=== PATIENT | male | born 1930 ===

== ENCOUNTER 2016-11-15 23:15 | Inpatient (IN) | payer MEDICARE ==
--- NOTE | 2016-11-15 23:25 | ED PDOC ---
HPI:STROKE - Time Time: 23:25 - Historian Historian: Patient - Chief Complaint Chief Complaint: Slurred speech, Confusion, Arm weakness, Leg weakness - Location Locate left: Lower extremity - Notes: Notes:: Last known well at ~9:30pm when he went to bed Woke up and attempted to talk to but had slurred and nonsensical speech. Also with difficulty with LEFT side movement H/o similar presentation in past from stroke: 10-y ago and 1-y ago. Taking Plavix. Took 3 baby aspirin given by prior to arrival. Currently reports she thinks he is getting a little better. Pt poor historian. Reports that he is fine. NIHSS Stroke Scale - Date/Time Evaluation Performed Date Performed: 11/15/16 Time Performed: 23:25 When Was NIHSS Performed: Baseline - How Severe is the Stroke Level of Consciousness: 0=Alert LOC to Questions: 0=Both comments correct LOC to commands: 0=Obeys both correctly Best Gaze: 1=Partial gaze palsy Visual: 1=Partial hemianopia Facial: 1=Minor asymmetry Motor Arm - Left: 1=Drift noted before 10 sec Motor Arm - Right: 0=No drift Motor Leg - Left: 2=Falls before 5 sec Motor Leg - Right: 0=No drift Limb Ataxia: 0=Absent Sensory: 1=Mild to moderate loss Best Language: 0=No aphasia Dysarthia: 0=Normal articulation Extinction & Inattention (Neglect): 1=Partial neglect (mild leonarda-attention) Score: 8 rTPA Inclusion/Exclusion - Refusal of Treatment Patient Refused Treatment: No - Inclusion Criteria for Altepase Patient is 18 years or Older: Yes The Clinical Diagnosis of Ischemic Stroke That is Causing a Potentially Disabling Neurological Deficit: Yes Time of Onset is Well Established to be Less Than 270 Minute Before Treatment Would Begin: Yes Risk/Benefit Discussed With Patient/Family Member Present: Yes - Exclusion Criteria for Altepase Uncontrolled Hypertension at Time of Treatment (Systolic BP above 185 or Diastolic BP above 110 mmHg): No Evidence of an Intracranial Hemorrhage: No Suspicion of Subarachnoid Hemorrhage on Pretreatment Evaluation Even if CT Head Negative For Hemorrhage: No - Warning to TPA With Conditions Condition: Age Greater Than 75 years, Increase Risk of Bleed Due to Comorbid Condition Additional Condition (For 3-4.5 Hour Window): Age Greater Than 80, Prior Stroke and Diabetes Past Medical History Reviewed: Historical Data, Nursing Documentation, Vital Signs Vital Signs: Last Vital Signs Temp Pulse 88 11/15/16 23:20 Resp 18 11/15/16 23:20 BP Pulse Ox - Medical History PMH: Diabetes, HTN - Family History Family History: States: No Known Family Hx - Social History Current smoker - smoking cessation education provided: No - Home Medications Home Medications: Ambulatory Orders Medication Instructions Recorded Bisoprolol [Zebeta] 5 mg PO DAILY 11/16/16 Glimepiride 1 mg PO DAILY 11/16/16 Nateglinide 120 mg PO BID 11/16/16 Omeprazole 20 mg PO DAILY 11/16/16 Quinapril HCl [Quinapril HCl] 10 mg PO DAILY 11/16/16 Apixaban [Eliquis] 5 mg PO BID tab 11/17/16 - Allergies Allergies/Adverse Reactions: Allergies Allergy/AdvReac Type Severity Reaction Status Date / Time No Known Allergies Allergy Verified 11/15/16 23:20 Review of Systems Review Of Systems: ROS cannot be obtained secondary to pt's inabilty to answer questions. (pt poor historian) Physical Exam - Reviewed Nursing Documentation Reviewed: Yes Vital Signs Reviewed: Yes - Physical Exam Appears: Positive for: Non-toxic, In Acute Distress Head Exam: Positive for: ATRAUMATIC, NORMOCEPHALIC Skin: Positive for: Warm, Dry Eye Exam: Positive for: EOMI, PERRL, Other (RIGHT gaze perference) ENT: Negative for: Pharyngeal Erythema, Tonsillar Exudate Neck: Positive for: Painless ROM, Supple Cardiovascular/Chest: Positive for: Regular Rate, Rhythm. Negative for: Murmur Respiratory: Positive for: Normal Breath Sounds. Negative for: Wheezing Gastrointestinal/Abdominal: Positive for: Soft. Negative for: Tenderness Back: Positive for: Normal Inspection. Negative for: Vertebral Tenderness Extremity: Negative for: Pedal Edema, Deformity Lymphatic: Negative for: Adenopathy Neurologic/Psych: Positive for: Alert, Oriented (x3), Motor/Sensory Deficits ( see NIHSS) - Laboratory Results Result Diagrams: 11/18/16 04:30 11/18/16 04:30 - Progress ED Course And Treament: EXAM: CT Head Without Intravenous Contrast. CLINICAL HISTORY: 86 years old, male; Signs and symptoms; Alteration of consciousness; Additional info: Code stroke TECHNIQUE: Axial computed tomography images of the head/brain without intravenous contrast. This CT exam was performed using one or more of the following dose reduction techniques: automated exposure control, adjustment of the mA and/or kV according to patient size, and/or use of iterative reconstruction technique. Sagittal reformatted images were created and reviewed. COMPARISON: No relevant prior studies available. FINDINGS: Brain: Mild encephalomalacia at the right parieto-occipital region compatible with old focal infarct. There is moderate prominence of ventricles and sulci, compatible with moderate atrophy. There is mild diminished density of the white matter bilaterally, consistent with mild microangiopathy. There is no evidence of intracranial hemorrhage. No evidence of acute territorial infarction. Ventricles: See above. Bones/joints: Unremarkable. No acute fracture. Soft tissues: Unremarkable. Sinuses: Unremarkable as visualized. No acute sinusitis. Mastoid air cells: Unremarkable as visualized. No mastoid effusion. IMPRESSION: 1. Mild encephalomalacia at the right parieto-occipital region compatible with old focal infarct. 2. No evidence for acute intracranial abnormality or displaced calvarial fracture. 3. Additional incidental and/or chronic findings as described. Thank you for allowing us to participate in the care of your patient. Dictated and Authenticated by: Hugo Downey MD 11/15/2016 11:33 PM Eastern Time ([place] & [place]) [facility]. Poor candidate for TPA at this time due to age, symptoms seem to be waning, and encephalomalacia on CT making intracranial bleeding higher risk. IV Mg and maintenance fluids ordered as discussed. EEG recommended for inpatient. Continue Plavix. On reeval pt has persistent LEFT sided weakness and some neglect. Condition: Improving,but remains with symptoms - Core Measure Core Measure Indicators: Code Stroke - Critical Care Total Time (In Min): 45 Documented Critical Care: Time excludes all time spent performint seperately billable procedures Disposition - Clinical Impression Clinical Impression: CVA (cerebral vascular accident) Discussed With Dr.: Yan Puente Doctor Will See Patient In The: Hospital Counseled Patient/Family Regarding: Studies Performed, Diagnosis - Disposition Disposition Time: 23:45 Condition: FAIR - Pt Status Changed To: Hospital Disposition Of: Inpatient - Admit Certification Admit to Inpatient:: After my assessment, the patient will require hospitalization for at least two midnights. This is because of the severity of symptoms shown, intensity of services needed, and/or the medical risk in this patient being treated as an outpatient. - POA Present On Arrival: None
--- NOTE | 2016-11-15 23:33 | CT ---
EXAM: CT Head Without Intravenous Contrast. CLINICAL HISTORY: 86 years old, male; Signs and symptoms; Alteration of consciousness; Additional info: Code stroke TECHNIQUE: Axial computed tomography images of the head/brain without intravenous contrast. This CT exam was performed using one or more of the following dose reduction techniques: automated exposure control, adjustment of the mA and/or kV according to patient size, and/or use of iterative reconstruction technique. Sagittal reformatted images were created and reviewed. COMPARISON: No relevant prior studies available. FINDINGS: Brain: Mild encephalomalacia at the right parieto-occipital region compatible with old focal infarct. There is moderate prominence of ventricles and sulci, compatible with moderate atrophy. There is mild diminished density of the white matter bilaterally, consistent with mild microangiopathy. There is no evidence of intracranial hemorrhage. No evidence of acute territorial infarction. Ventricles: See above. Bones/joints: Unremarkable. No acute fracture. Soft tissues: Unremarkable. Sinuses: Unremarkable as visualized. No acute sinusitis. Mastoid air cells: Unremarkable as visualized. No mastoid effusion. IMPRESSION: 1. Mild encephalomalacia at the right parieto-occipital region compatible with old focal infarct. 2. No evidence for acute intracranial abnormality or displaced calvarial fracture. 3. Additional incidental and/or chronic findings as described.
[2016-11-15] MEDS ORDERED: Sodium Chloride 0.9% 1,000 ML IV STA (23:45)
[2016-11-16 00:03] LABS: BASO # 0.1 K/uL (0.0-0.2); BASO % 0.6 % (0.0-2.0); EOS # 0.5 K/uL (0.0-0.7); EOS % 4.5 % (0.0-4.0); HEMATOCRIT 47.6 % (35.0-51.0); LYMPH # 4.3 K/uL (1.0-4.3); LYMPH % 38.6 % (20.0-40.0); MEAN CELL VOLUME 92.6 fl (80.0-94.0); MEAN CORPUSCULAR HEMOGLOBIN 30.7 pg (27.0-31.0); MEAN CORPUSCULAR HGB CONC 33.1 g/dL (33.0-37.0); MEAN PLATELET VOLUME 9.6 fl (7.2-11.7); MONO # 0.8 K/uL (0.0-0.8); MONO % 7.2 % (0.0-10.0); NEUT # 5.5 K/uL (1.8-7.0); NEUT % 49.1 % (50.0-75.0); RED CELL DISTRIBUTION WIDTH 16.7 % (11.5-14.5); WHITE BLOOD COUNT 11.1 K/uL (4.8-10.8)
[2016-11-16 00:06] LABS: ALB/GLOB RATIO 1.2 (1.0-2.1); ALKALINE PHOSPHATASE 77 U/L (38-126); ALT/SGPT 30 U/L (21-72); AST/SGOT 33 U/L (17-59); BILIRUBIN,TOTAL 0.7 mg/dl (0.2-1.3); BLOOD UREA NITROGEN 30 mg/dl (9-20); CALCIUM 9.9 mg/dL (8.4-10.2); CARBON DIOXIDE 25 mmol/L (22-30); CHLORIDE 103 mmol/L (98-107); CHOLESTEROL 217 mg/dL (0-199); GFR AFRICAN-AMERICAN > 60; GLUCOSE,RANDOM 212 mg/dL (75-110); POTASSIUM 4.1 MMOL/L (3.6-5.0); SODIUM 143 mmol/l (132-148); TOTAL PROTEIN 7.6 G/DL (6.3-8.2)
--- NOTE | 2016-11-16 07:07 | CP.PCM.HP ---
History of Present Illness - History of Present Illness History of Present Illness: pt admitted for cva. at present decr rom to lue, full rom rue and ble speech is slightly slurred. this is an improvement over documented noted from ERMD. per daughter at bedside. pt has h/o cva, "heart valve problem". no cp, dyspnea , headache at present. vs and imaging noted. consults pending. ?? afib on monitor Present on Admission - Present on Admission Any Indicators Present on Admission: Yes History of Uncontrolled Diabetes: Yes Review of Systems - Cardiovascular Cardiovascular: As Per HPI, Irregular Heart Rhythm - Neurological Neurological: As Per HPI, Abnormal Gait, Focal Weakness, Paresthesias, Sensory Deficit Past Patient History - Past Social History Smoking Status: Unknown If Ever Smoked - CARDIAC Hx Cardia Arrhythmia: Yes Hx Congestive Heart Failure: Yes Hx Hypertension: Yes - NEUROLOGICAL HX Cerebrovascular Accident: Yes Hx Transient Ischemic Attacks (TIA): Yes - ENDOCRINE/METABOLIC Hx Diabetes Mellitus Type 2: Yes - PSYCHIATRIC Hx Substance Use: No - SURGICAL HISTORY Hx Cholecystectomy: Yes - ANESTHESIA Hx Anesthesia: Yes Hx Anesthesia Reactions: No Meds Allergies/Adverse Reactions: Allergies Allergy/AdvReac Type Severity Reaction Status Date / Time No Known Allergies Allergy Verified 11/15/16 23:20 Physical Exam - Constitutional Appears: Well, Non-toxic, No Acute Distress - Head Exam Head Exam: ATRAUMATIC, NORMAL INSPECTION, NORMOCEPHALIC - Eye Exam Eye Exam: EOMI, Normal appearance, PERRL Pupil Exam: NORMAL ACCOMODATION, PERRL - ENT Exam ENT Exam: Mucous Membranes Moist, Normal Exam - Neck Exam Neck exam: Positive for: Normal Inspection - Respiratory Exam Respiratory Exam: Clear to Auscultation Bilateral, NORMAL BREATHING PATTERN - Cardiovascular Exam Cardiovascular Exam: Irregular Rhythm, +S1, +S2 - GI/Abdominal Exam GI & Abdominal Exam: Normal Bowel Sounds, Soft. absent: Tenderness - Extremities Exam Extremities exam: Positive for: full ROM, normal capillary refill, normal inspection, pedal pulses present Additional comments: lue 3/5 rue ble 5/5 - Back Exam Back exam: NORMAL INSPECTION - Neurological Exam Neurological exam: Abnormal Gait, Alert, CN II-XII Intact, Oriented x3, Reflexes Normal - Psychiatric Exam Psychiatric exam: Normal Affect, Normal Mood - Skin Skin Exam: Dry, Intact, Normal Color, Warm Results - Vital Signs Recent Vital Signs: Last Vital Signs Temp 98.3 F 11/16/16 05:07 Pulse 68 11/16/16 05:07 Resp 20 11/16/16 05:07 BP 143/78 11/16/16 05:07 Pulse Ox 96 11/16/16 05:07 - Labs Result Diagrams: 11/16/16 07:00 11/16/16 07:43 Assessment & Plan (1) CVA (cerebral vascular accident) Assessment and Plan: echo, cardio, neuro plavix tele josefa/acute rehab bp, glucose control Status: Acute Priority: High (2) DVT prophylaxis Assessment and Plan: scd and aehose lovenox Status: Acute (3) HTN (hypertension) Assessment and Plan: cont home meds strict bp control Status: Acute (4) Diabetes type 2, uncontrolled Assessment and Plan: cont home meds fsbg ?? need for riss Status: Acute Decision To Admit - Pt Status Changed To: Hospital Disposition Of: Inpatient - Admit Certification Admit to Inpatient:: After my assessment, the patient will require hospitalization for at least two midnights. This is because of the severity of symptoms shown, intensity of services needed, and/or the medical risk in this patient being treated as an outpatient. - . Bed Request Type: Telemetry Admitting Physician: Charity Bird
[2016-11-16 08:28] LABS: ALB/GLOB RATIO 1.1 (1.0-2.1); ALKALINE PHOSPHATASE 61 U/L (38-126); ALT/SGPT 29 U/L (21-72); AST/SGOT 34 U/L (17-59); BILIRUBIN,TOTAL 0.9 mg/dl (0.2-1.3); BLOOD UREA NITROGEN 24 mg/dl (9-20); CALCIUM 9.2 mg/dL (8.4-10.2); CARBON DIOXIDE 24 mmol/L (22-30); CHLORIDE 106 mmol/L (98-107); GFR AFRICAN-AMERICAN > 60; GLUCOSE,RANDOM 170 mg/dL (75-110); POTASSIUM 4.6 MMOL/L (3.6-5.0); SODIUM 140 mmol/l (132-148); TOTAL PROTEIN 6.5 G/DL (6.3-8.2)
[2016-11-16 08:35] LABS: BASO % 0.5 % (0.0-2.0); EOS # 0.4 K/uL (0.0-0.7); HEMATOCRIT 43.1 % (35.0-51.0); LYMPH # 2.3 K/uL (1.0-4.3); LYMPH % 23.4 % (20.0-40.0); MEAN CELL VOLUME 92.3 fl (80.0-94.0); MEAN CORPUSCULAR HEMOGLOBIN 31.1 pg (27.0-31.0); MEAN CORPUSCULAR HGB CONC 33.7 g/dL (33.0-37.0); MEAN PLATELET VOLUME 9.4 fl (7.2-11.7); MONO # 0.6 K/uL (0.0-0.8); MONO % 6.6 % (0.0-10.0); NEUT # 6.5 K/uL (1.8-7.0); NEUT % 65.5 % (50.0-75.0); RED CELL DISTRIBUTION WIDTH 16.1 % (11.5-14.5); WHITE BLOOD COUNT 9.8 K/uL (4.8-10.8)
[2016-11-16] MEDS ORDERED: GLIMEPIRIDE 1 MG PO SCH (09:00)
[2016-11-16] MEDS: GlipiZIDE 2.5 mg SR Tab PO SCH (09:41)
--- NOTE | 2016-11-16 10:31 | RAD ---
HISTORY: code stroke COMPARISON: No prior. FINDINGS: LUNGS: No active pulmonary disease. PLEURA: No significant pleural effusion identified, no pneumothorax apparent. CARDIOVASCULAR: Normal. OSSEOUS STRUCTURES: No significant abnormalities. VISUALIZED UPPER ABDOMEN: Normal. OTHER FINDINGS: None. IMPRESSION: No active disease.
--- NOTE | 2016-11-16 11:36 | CARD ---
APPROVED REPORT EXAM: Two-dimensional and M-mode echocardiogram with Doppler and color Doppler. Other Information Quality : GoodRhythm : Atrial Fibrillation INDICATION CVA/TIA 2D DIMENSIONS IVSd1.49 (0.7-1.1cm)LVDd4.30 (3.9-5.9cm) LVOT Diameter2.63 (1.8-2.4cm)PWd0.97 (0.7-1.1cm) IVSs1.27 (0.8-1.2cm)LVDs3.59 (2.5-4.0cm) FS (%) 16.4 %PWs1.32 (0.8-1.2cm) M-Mode DIMENSIONS Left Atrium (MM)4.24 (2.5-4.0cm)Aortic Root3.41 (2.2-3.7cm) Aortic Cusp Exc.1.79 (1.5-2.0cm) Mitral Valve E/A ratio0.0 TDI E/Lateral E'0.0E/Medial E'0.0 Tricuspid Valve TR Peak [id number] Peak Gr.21mmHg [id number] LEFT VENTRICLE The left ventricle is normal size. There is normal left ventricular wall thickness. The systolic function is moderately impaired. The Ejection Fraction is 35-40%. There is normal LV segmental wall motion. The left ventricular diastolic function is normal. No left ventricle thrombus noted on this study. There is no mass noted in the left ventricle. RIGHT VENTRICLE The right ventricle is normal size. There is normal right ventricular wall thickness. The right ventricular systolic function is normal. ATRIA The left atrium size is normal. The right atrium size is normal. The interatrial septum is intact with no evidence for an atrial septal defect. AORTIC VALVE The aortic valve is normal in structure and function. No aortic regurgitation is present. There is no aortic valvular stenosis. There is no aortic valvular vegetation. MITRAL VALVE The mitral valve is normal in structure and function. There is no evidence of mitral valve prolapse. There is no mitral valve stenosis. Mitral regurgitation is trace to mild. TRICUSPID VALVE The tricuspid valve is normal in structure and function. There is no tricuspid valve regurgitation noted. There is no tricuspid valve prolapse or vegetation. There is no tricuspid valve stenosis. PULMONIC VALVE The pulmonary valve is normal in structure and function. There is no pulmonic valvular regurgitation. There is no pulmonic valvular stenosis. GREAT VESSELS The aortic root is normal in size. The IVC is normal in size and collapses >50% with inspiration. PERICARDIAL EFFUSION The pericardium appears normal. There is no pleural effusion. <Conclusion> The left ventricle is normal size. The systolic function is moderately impaired. The Ejection Fraction is 35-40%. Mitral regurgitation is trace to mild.
--- NOTE | 2016-11-16 11:52 | CARD ---
APPROVED REPORT EKG Measurement Heart [id number] <Conclusion> Atrial fibrillation Abnormal ECG
--- NOTE | 2016-11-16 14:36 | CP.PCM.CON ---
History of Present Illness - History of Present Illness History of Present Illness: Mr. Kim is an 86-year-old man with a previous right MCA territory ischemic stroke with no significant residual weakness, atrial fibrillation (was on Xarelto, but taken off several weeks ago, now only on aspirin), diabetes and hypertension, who presented to the ED last night for recurrent left side weakness. His family states that he had gone to sleep at around 9 PM or so and when he woke up, he was weak on the left side and could not ambulate. He was brought to the ED and a CT scan of the head was done. Evidence of prior right MCA territory stroke was demonstrated as right parietal lobe encephalomalacia with possible more proximal hypodensity. His NIHSS was calculated to be an 8 at the time due to left side neglect and hemiplegia, but was improving. He was not a candidate for IV tPA due to unspecified time of onset, improving symptoms , previous stroke in the represented territory. I discussed the case with the ED attending and recommended IV hydration with NS , permissive hypertension, magnesium sulfate and loading with aspirin and Plavix. MRI of the brain and stroke work-up was also recommended. Today, the patient is improving and has significantly more mobility of his left side. He continued to have a neglect and his family informed me that he does have recurrent weakness but it usually fully resolves within several hours. This occasion seems to be taking longer than usual for full resolution. Review of Systems - Review of Systems All systems: reviewed and no additional remarkable complaints except - Constitutional Constitutional: As Per HPI - EENT Eyes: Other (Neglect of left visual field and developed gaze preference to the right.) Ears: As Per HPI Nose/Mouth/Throat: As Per HPI - Cardiovascular Cardiovascular: Irregular Heart Rhythm, Palpitations - Respiratory Respiratory: As Per HPI - Gastrointestinal Gastrointestinal: As Per HPI - Neurological Neurological: As Per HPI - Psychiatric Psychiatric: As Per HPI Past Patient History - Past Medical History & Family History Past Medical History?: Yes - Past Social History Smoking Status: Unknown If Ever Smoked - CARDIAC Hx Cardia Arrhythmia: Yes Hx Congestive Heart Failure: Yes Hx Hypertension: Yes - NEUROLOGICAL HX Cerebrovascular Accident: Yes Hx Transient Ischemic Attacks (TIA): Yes - ENDOCRINE/METABOLIC Hx Diabetes Mellitus Type 2: Yes - PSYCHIATRIC Hx Substance Use: No - SURGICAL HISTORY Hx Cholecystectomy: Yes - ANESTHESIA Hx Anesthesia: Yes Hx Anesthesia Reactions: No Meds Allergies/Adverse Reactions: Allergies Allergy/AdvReac Type Severity Reaction Status Date / Time No Known Allergies Allergy Verified 11/15/16 23:20 - Medications Medications: Current Medications Bisoprolol Fumarate (Zebeta) 5 mg PO DAILY [facility] Last Admin: 11/16/16 09:37 Dose: 5 mg Clopidogrel Bisulfate (Plavix) 75 mg PO DAILY [facility] Last Admin: 11/16/16 09:38 Dose: 75 mg Docusate Sodium (Colace) 100 mg PO BID [facility] Enoxaparin Sodium (Lovenox) 40 mg SC DAILY [facility] PRN Reason: Protocol Glipizide (Glucotrol Xl) 2.5 mg PO BRK [facility] Last Admin: 11/16/16 09:41 Dose: 2.5 mg Home Med (Patient's Own Medication) 1 unit PO HS [facility] Nateglinide (Starlix) 120 mg PO BID [facility] Last Admin: 11/16/16 09:40 Dose: 120 mg Pantoprazole Sodium (Protonix Ec Tab) 20 mg PO DAILY [facility] Physical Exam - Head Exam Head Exam: ATRAUMATIC, NORMAL INSPECTION, NORMOCEPHALIC - Eye Exam Eye Exam: EOMI, Normal appearance, PERRL. absent: Conjunctival injection, Nystagmus, Periorbital swelling, Periorbital tenderness, Scleral icterus Pupil Exam: NORMAL ACCOMODATION, PERRL - Cardiovascular Exam Cardiovascular Exam: Irregular Rhythm, +S1, +S2 - Neurological Exam Neurological exam: Abnormal Gait, Alert, CN II-XII Intact Additional comments: Left side neglect with gaze deviation to the right. Left upper extremity is raised up above the horizontal, but only maintained for several seconds. Left lower extremity is raised antigravity, but only for about 3-4 seconds, then drops spontaneously. Sensation is said to be symmetrical. Reflexes are brisk with upgoing plantar response on the left. Gait could not be assessed due to weakness. NIHSS = 4 Results - Vital Signs Recent Vital Signs: Last Vital Signs Temp 98.3 F 11/16/16 05:07 Pulse 78 11/16/16 09:43 Resp 16 11/16/16 09:43 BP 153/95 H 11/16/16 09:43 Pulse Ox 99 11/16/16 09:43 - Labs Result Diagrams: 11/16/16 07:00 11/16/16 07:43 Labs: Laboratory Results - last 24 hr 11/16/16 11/16/16 07:00 07:43 WBC 9.8 RBC 4.68 Hgb 14.6 Hct 43.1 MCV 92.3 MCH 31.1 H MCHC 33.7 RDW 16.1 H Plt Count 214 MPV 9.4 Neut % (Auto) 65.5 Lymph % (Auto) 23.4 [place] % (Auto) 6.6 Eos % (Auto) 4.0 Baso % (Auto) 0.5 Neut # 6.5 Lymph # 2.3 [place] # 0.6 Eos # 0.4 Baso # 0.0 Sodium 140 Potassium 4.6 Chloride 106 Carbon Dioxide 24 Anion Gap 15 BUN 24 H Creatinine 0.8 Est GFR ( Amer) > 60 Est GFR (Non-Af Amer) > 60 Random Glucose 170 H Calcium 9.2 Total Bilirubin 0.9 AST 34 ALT 29 Alkaline Phosphatase 61 Total Protein 6.5 Albumin 3.4 L Globulin 3.1 Albumin/Globulin Ratio 1.1 - Imaging and Cardiology CT scan - head Status: Image reviewed by me (Evidence of hypodensity and encephalomalacia in the right frontal and parietal regions. No significant acute findings. ) Assessment & Plan (1) CVA (cerebral vascular accident) Status: Acute Priority: High Comment: The patient is an 86-year-old man with a past medical history of atrial fibrillation (not on anticoagulation), right MCA region embolic stroke, hypertension and diabetes who has had recurrent left side weakness that occurs occasionally, but resolves. He presented with left side weakness after waking up from a 2 hour nap and had an NIHSS of 8 at first, which is now down to NIHSS of 4. He was dehydrated according to lab findings. The differential diagnosis includes a new infarct in the right MCA region involving the frontal eye coburn , resurgence of previous stroke symptoms as well as seizures. I recommend the followin. Start Eliquis at 5 mg BID. 2. Normal Saline at 100 mL/hr. 3. Echocardiogram with Bubble Study. 4. CTA of the head/neck/arch. 5. EEG (30 minutes awake and drowsy). 6. Risk factor management (DM, HTN, HLD, etc). 7. PT/OT/ST. 8. Case management consult
[2016-11-16] MEDS: Pantoprazole 20 mg EC Tab PO SCH (15:46)
--- NOTE | 2016-11-16 18:54 | CP.PCM.CON ---
History of Present Illness - History of Present Illness History of Present Illness: I was asked to see patient by Dr. Bird and Yan Puente APN. Patient is an 86 year old male with a history of HTN, hypercholesterolemia, atrial fibrillation who presents with CVA. The patient was previously on Xarelto, but this was stopped for an unknown reason. The patient was noted to be aphasic. The patient' fmaily is at bedside. The rhythm is atrial fibrillation on the monitor. Review of Systems - Review of Systems Systems not reviewed;Unavailable: Altered Mental Status Past Patient History - Past Medical History & Family History Past Medical History?: Yes - Past Social History Smoking Status: Unknown If Ever Smoked - CARDIAC Hx Cardia Arrhythmia: Yes Hx Congestive Heart Failure: Yes Hx Hypertension: Yes - NEUROLOGICAL HX Cerebrovascular Accident: Yes Hx Transient Ischemic Attacks (TIA): Yes - ENDOCRINE/METABOLIC Hx Diabetes Mellitus Type 2: Yes - PSYCHIATRIC Hx Substance Use: No - SURGICAL HISTORY Hx Cholecystectomy: Yes - ANESTHESIA Hx Anesthesia: Yes Hx Anesthesia Reactions: No Meds Allergies/Adverse Reactions: Allergies Allergy/AdvReac Type Severity Reaction Status Date / Time No Known Allergies Allergy Verified 11/15/16 23:20 - Medications Medications: Current Medications Bisoprolol Fumarate (Zebeta) 5 mg PO DAILY [facility] Last Admin: 11/16/16 09:37 Dose: 5 mg Clopidogrel Bisulfate (Plavix) 75 mg PO DAILY [facility] Last Admin: 11/16/16 09:38 Dose: 75 mg Docusate Sodium (Colace) 100 mg PO BID [facility] Enoxaparin Sodium (Lovenox) 40 mg SC DAILY [facility] PRN Reason: Protocol Glipizide (Glucotrol Xl) 2.5 mg PO BRK [facility] Last Admin: 11/16/16 09:41 Dose: 2.5 mg Home Med (Patient's Own Medication) 1 unit PO HS [facility] Nateglinide (Starlix) 120 mg PO BID [facility] Last Admin: 11/16/16 09:40 Dose: 120 mg Pantoprazole Sodium (Protonix Ec Tab) 20 mg PO DAILY [facility] Last Admin: 11/16/16 15:46 Dose: 20 mg Physical Exam - Constitutional Appears: Chronically Ill - Head Exam Head Exam: NORMAL INSPECTION - Eye Exam Eye Exam: Normal appearance - ENT Exam ENT Exam: Mucous Membranes Moist - Neck Exam Neck exam: Positive for: Full Rom - Respiratory Exam Respiratory Exam: Decreased Breath Sounds - Cardiovascular Exam Cardiovascular Exam: Irregular Rhythm - GI/Abdominal Exam GI & Abdominal Exam: Normal Bowel Sounds - Rectal Exam Rectal Exam: Deferred - Extremities Exam Extremities exam: Negative for: pedal edema - Back Exam Back exam: NORMAL INSPECTION - Psychiatric Exam Psychiatric exam: Flat Affect - Skin Skin Exam: Normal Color Results - Vital Signs Recent Vital Signs: Last Vital Signs Temp 98.2 F 11/16/16 15:19 Pulse 82 11/16/16 15:19 Resp 16 11/16/16 15:19 BP 130/74 11/16/16 15:19 Pulse Ox 96 11/16/16 15:19 - Labs Result Diagrams: 11/17/16 06:10 11/17/16 06:10 Labs: Laboratory Results - last 24 hr 11/16/16 11/16/16 11/16/16 01:14 07:00 07:43 WBC 9.8 RBC 4.68 Hgb 14.6 Hct 43.1 MCV 92.3 MCH 31.1 H MCHC 33.7 RDW 16.1 H Plt Count 214 MPV 9.4 Neut % (Auto) 65.5 Lymph % (Auto) 23.4 Briscoe % (Auto) 6.6 Eos % (Auto) 4.0 Baso % (Auto) 0.5 Neut # 6.5 Lymph # 2.3 Briscoe # 0.6 Eos # 0.4 Baso # 0.0 Sodium 140 Potassium 4.6 Chloride 106 Carbon Dioxide 24 Anion Gap 15 BUN 24 H Creatinine 0.8 Est GFR ( Amer) > 60 Est GFR (Non-Af Amer) > 60 Random Glucose 170 H Calcium 9.2 Total Bilirubin 0.9 AST 34 ALT 29 Alkaline Phosphatase 61 Total Protein 6.5 Albumin 3.4 L Globulin 3.1 Albumin/Globulin Ratio 1.1 Blood Type Confirm A POSITIVE - EKG Data EKG Interpreted by: Myself Assessment & Plan (1) CVA (cerebral vascular accident) Assessment and Plan: likely cardioembolic. recommend anticoagulation with Eliquis if no contraindication. Status: Acute Priority: High (2) Diabetes type 2, uncontrolled Assessment and Plan: medical therapy Status: Acute (3) HTN (hypertension) Assessment and Plan: blood pressure control Status: Acute (4) Chronic atrial fibrillation Assessment and Plan: anticoagulation with Eliquis Status: Acute
[2016-11-16] MEDS: QUINAPRIL HCL 10 MG PO SCH (22:52)
[2016-11-16] MEDS: Sodium Chloride 0.9% 1,000 ML IV SCH (22:56)
[2016-11-17] MEDS: Sodium Chloride 0.9% 1,000 ML IV SCH ×2 (06:18→21:30)
--- NOTE | 2016-11-17 07:04 | CP.PCM.PN ---
Subjective - Date & Time of Evaluation Date of Evaluation: 11/17/16 Time of Evaluation: 07:03 - Subjective Subjective: pt in bed, no distress. no pain, headache/cp. lue 3/5, rue 5/5, blue 4-5/5 granddaughter at bedside ?? homew/ services vs acute vs [facility]ose[facility] case d/c w/ sw, neuro and cardio bw noted vs noted all imaging noted mri ordered Objective - Vital Signs/Intake and Output Vital Signs (last 24 hours): Temp Pulse Resp BP Pulse Ox 98.6 F 88 18 117/74 95 11/17/16 04:48 11/17/16 04:48 11/17/16 04:48 11/17/16 04:48 11/17/16 04:48 - Medications Medications: Current Medications Bisoprolol Fumarate (Zebeta) 5 mg PO DAILY [facility] Last Admin: 11/16/16 09:37 Dose: 5 mg Clopidogrel Bisulfate (Plavix) 75 mg PO DAILY [facility] Last Admin: 11/16/16 09:38 Dose: 75 mg Docusate Sodium (Colace) 100 mg PO BID [facility] Last Admin: 11/16/16 19:06 Dose: 100 mg Enoxaparin Sodium (Lovenox) 40 mg SC DAILY [facility] PRN Reason: Protocol Glipizide (Glucotrol Xl) 2.5 mg PO BRK [facility] Last Admin: 11/16/16 09:41 Dose: 2.5 mg Home Med (Patient's Own Medication) 1 unit PO HS [facility] Last Admin: 11/16/16 22:52 Dose: 1 unit Sodium Chloride (Sodium Chloride 0.9%) 1,000 mls @ 100 mls/hr IV .Q10H [facility] Stop: 11/17/16 20:16 Last Admin: 11/17/16 06:18 Dose: 100 mls/hr Nateglinide (Starlix) 120 mg PO BID [facility] Last Admin: 11/16/16 19:07 Dose: 120 mg Pantoprazole Sodium (Protonix Ec Tab) 20 mg PO DAILY [facility] Last Admin: 11/16/16 15:46 Dose: 20 mg - Labs Labs: 11/16/16 07:00 11/16/16 07:43 PT 10.1 SECONDS (9.6-11.2) 11/15/16 23:24 INR 0.97 (0.92-1.08) 11/15/16 23:24 APTT 24.0 SECONDS (23.3-32.5) 11/15/16 23:24 - Constitutional Appears: Well, Non-toxic, No Acute Distress - Head Exam Head Exam: ATRAUMATIC, NORMAL INSPECTION, NORMOCEPHALIC - Eye Exam Eye Exam: EOMI, Normal appearance, PERRL Pupil Exam: NORMAL ACCOMODATION, PERRL - ENT Exam ENT Exam: Mucous Membranes Moist, Normal Exam - Neck Exam Neck Exam: Full ROM, Normal Inspection. absent: Lymphadenopathy - Respiratory Exam Respiratory Exam: Clear to Ausculation Bilateral, NORMAL BREATHING PATTERN - Cardiovascular Exam Cardiovascular Exam: REGULAR RHYTHM, RRR, +S1, +S2. absent: Murmur - GI/Abdominal Exam GI & Abdominal Exam: Soft, Normal Bowel Sounds. absent: Tenderness - Extremities Exam Extremities Exam: Full ROM, Normal Capillary Refill, Normal Inspection. absent : Joint Swelling, Pedal Edema - Back Exam Back Exam: NORMAL INSPECTION - Neurological Exam Neurological Exam: Alert, Awake, CN II-XII Intact, Normal Gait, Oriented x3 Neuro motor strength exam: Left Upper Extremity: 3, Right Upper Extremity: 5, Left Lower Extremity: 5, Right Lower Extremity: 5 - Psychiatric Exam Psychiatric exam: Normal Affect, Normal Mood - Skin Skin Exam: Dry, Intact, Normal Color, Warm Assessment and Plan (1) CVA (cerebral vascular accident) Status: Acute (2) DVT prophylaxis Status: Acute (3) HTN (hypertension) Status: Acute (4) Diabetes type 2, uncontrolled Status: Acute - Assessment and Plan (Free Text) Assessment: (1) CVA (cerebral vascular accident) Assessment and Plan: echo, cardio, neuro-all appriciated plavix tele jose[facility]/acute rehab/home w/ service (family preferance) bp, glucose control ?? start eliquid Status: Acute Priority: High (2) DVT prophylaxis Assessment and Plan: scd and aehose lovenox Status: Acute (3) HTN (hypertension) Assessment and Plan: cont home meds strict bp control Status: Acute (4) Diabetes type 2, uncontrolled Assessment and Plan: cont home meds fsbg ?? need for riss Status: Acute [id number] for now, cardio, echo ?? start eliquis
[2016-11-17 07:36] LABS: ALB/GLOB RATIO 1.1 (1.0-2.1); ALKALINE PHOSPHATASE 76 U/L (38-126); ALT/SGPT 41 U/L (21-72); AST/SGOT 36 U/L (17-59); BILIRUBIN,TOTAL 1.3 mg/dl (0.2-1.3); BLOOD UREA NITROGEN 16 mg/dl (9-20); CALCIUM 9.3 mg/dL (8.4-10.2); CARBON DIOXIDE 25 mmol/L (22-30); CHLORIDE 99 mmol/L (98-107); GFR AFRICAN-AMERICAN > 60; GLUCOSE,RANDOM 165 mg/dL (75-110); SODIUM 134 mmol/l (132-148); TOTAL PROTEIN 6.6 G/DL (6.3-8.2)
[2016-11-17 07:47] LABS: BASO # 0.1 K/uL (0.0-0.2); BASO % 0.9 % (0.0-2.0); EOS # 0.1 K/uL (0.0-0.7); EOS % 1.4 % (0.0-4.0); HEMATOCRIT 44.5 % (35.0-51.0); LYMPH # 2.2 K/uL (1.0-4.3); LYMPH % 20.6 % (20.0-40.0); MEAN CELL VOLUME 91.4 fl (80.0-94.0); MEAN CORPUSCULAR HEMOGLOBIN 30.9 pg (27.0-31.0); MEAN CORPUSCULAR HGB CONC 33.8 g/dL (33.0-37.0); MEAN PLATELET VOLUME 9.4 fl (7.2-11.7); MONO # 0.9 K/uL (0.0-0.8); MONO % 8.5 % (0.0-10.0); NEUT # 7.4 K/uL (1.8-7.0); NEUT % 68.6 % (50.0-75.0); NRBC % 0.1 % (0.0-0.0); RED CELL DISTRIBUTION WIDTH 15.8 % (11.5-14.5); WHITE BLOOD COUNT 10.8 K/uL (4.8-10.8)
[2016-11-17] MEDS ORDERED: Enoxaparin 40 mg Syringe SC SCH (09:00)
[2016-11-17] MEDS: Pantoprazole 20 mg EC Tab PO SCH (09:14)
[2016-11-17] MEDS: GlipiZIDE 2.5 mg SR Tab PO SCH (09:15)
--- NOTE | 2016-11-17 15:22 | CP.PCM.PN ---
Subjective - Date & Time of Evaluation Date of Evaluation: 11/17/16 Time of Evaluation: 11:00 - Subjective Subjective: Mr. Kim was seen and examined today at bedside. His and daughter were present and had some questions regarding when the MRI would be done, medications and his blood glucose. These questions were answered to their satisfaction. The patient stated that he felt better today and had more mobility. He was able to ambulate with PT. Objective - Vital Signs/Intake and Output Vital Signs (last 24 hours): Temp Pulse Resp BP Pulse Ox 98.1 F 72 18 105/60 96 11/17/16 13:00 11/17/16 13:00 11/17/16 13:00 11/17/16 13:00 11/17/16 13:00 - Medications Medications: Current Medications Apixaban (Eliquis) 5 mg PO BID [facility] PRN Reason: Protocol Last Admin: 11/17/16 11:15 Dose: 5 mg Bisoprolol Fumarate (Zebeta) 5 mg PO DAILY [facility] Last Admin: 11/17/16 09:14 Dose: 5 mg Docusate Sodium (Colace) 100 mg PO BID [facility] Last Admin: 11/17/16 09:14 Dose: 100 mg Glipizide (Glucotrol Xl) 2.5 mg PO BRK [facility] Last Admin: 11/17/16 09:15 Dose: 2.5 mg Home Med (Patient's Own Medication) 1 unit PO HS [facility] Last Admin: 11/16/16 22:52 Dose: 1 unit Sodium Chloride (Sodium Chloride 0.9%) 1,000 mls @ 100 mls/hr IV .Q10H [facility] Stop: 11/17/16 20:16 Last Admin: 11/17/16 06:18 Dose: 100 mls/hr Nateglinide (Starlix) 120 mg PO BID [facility] Last Admin: 11/17/16 09:15 Dose: 120 mg Pantoprazole Sodium (Protonix Ec Tab) 20 mg PO DAILY [facility] Last Admin: 11/17/16 09:14 Dose: 20 mg - Labs Labs: 11/17/16 06:10 11/17/16 06:10 PT 10.1 SECONDS (9.6-11.2) 11/15/16 23:24 INR 0.97 (0.92-1.08) 11/15/16 23:24 APTT 24.0 SECONDS (23.3-32.5) 11/15/16 23:24 - Constitutional Appears: Well - Head Exam Head Exam: ATRAUMATIC, NORMAL INSPECTION, NORMOCEPHALIC - Eye Exam Eye Exam: EOMI Pupil Exam: PERRL - Neurological Exam Neurological Exam: Abnormal Gait, Alert, Altered, Awake, CN II-XII Intact, Oriented x3 Neuro motor strength exam: Left Upper Extremity: 4, Right Upper Extremity: 5, Left Lower Extremity: 4, Right Lower Extremity: 5 Additional comments: Exam is improved significantly compared with yesterday with sustained movement on the left. Reflexes are brisk on the left as compared with the right. Assessment and Plan (1) CVA (cerebral vascular accident) Assessment & Plan: Continue Eliquis 5 mg BID. Will follow MRI of the brain. Echocardiogram results pending. Recommend obtaining better glucose control. PT/OT to continue with recommendations. Status: Acute
--- NOTE | 2016-11-17 16:04 | CP.PCM.PN ---
Subjective - Date & Time of Evaluation Date of Evaluation: 11/17/16 Time of Evaluation: 15:45 - Subjective Subjective: patient remains somnolent. Objective - Vital Signs/Intake and Output Vital Signs (last 24 hours): Temp Pulse Resp BP Pulse Ox 98.1 F 72 18 105/60 96 11/17/16 13:00 11/17/16 13:00 11/17/16 13:00 11/17/16 13:00 11/17/16 13:00 - Medications Medications: Current Medications Apixaban (Eliquis) 5 mg PO BID [facility] PRN Reason: Protocol Last Admin: 11/17/16 11:15 Dose: 5 mg Bisoprolol Fumarate (Zebeta) 5 mg PO DAILY [facility] Last Admin: 11/17/16 09:14 Dose: 5 mg Docusate Sodium (Colace) 100 mg PO BID [facility] Last Admin: 11/17/16 09:14 Dose: 100 mg Glipizide (Glucotrol Xl) 2.5 mg PO BRK [facility] Last Admin: 11/17/16 09:15 Dose: 2.5 mg Home Med (Patient's Own Medication) 1 unit PO HS [facility] Last Admin: 11/16/16 22:52 Dose: 1 unit Sodium Chloride (Sodium Chloride 0.9%) 1,000 mls @ 100 mls/hr IV .Q10H [facility] Stop: 11/17/16 20:16 Last Admin: 11/17/16 06:18 Dose: 100 mls/hr Nateglinide (Starlix) 120 mg PO BID [facility] Last Admin: 11/17/16 09:15 Dose: 120 mg Pantoprazole Sodium (Protonix Ec Tab) 20 mg PO DAILY [facility] Last Admin: 11/17/16 09:14 Dose: 20 mg - Labs Labs: 11/17/16 06:10 11/17/16 06:10 PT 10.1 SECONDS (9.6-11.2) 11/15/16 23:24 INR 0.97 (0.92-1.08) 11/15/16 23:24 APTT 24.0 SECONDS (23.3-32.5) 11/15/16 23:24 - Constitutional Appears: Non-toxic - Head Exam Head Exam: NORMAL INSPECTION - Eye Exam Eye Exam: Normal appearance - ENT Exam ENT Exam: Mucous Membranes Moist - Neck Exam Neck Exam: Full ROM - Respiratory Exam Respiratory Exam: Decreased Breath Sounds - Cardiovascular Exam Cardiovascular Exam: Irregular Rhythm - GI/Abdominal Exam GI & Abdominal Exam: Normal Bowel Sounds - Rectal Exam Rectal Exam: Deferred - Extremities Exam Extremities Exam: Pedal Edema - Back Exam Back Exam: NORMAL INSPECTION - Skin Skin Exam: Normal Color Assessment and Plan (1) CVA (cerebral vascular accident) Assessment & Plan: will start Eliquis Status: Acute (2) Diabetes type 2, uncontrolled Assessment & Plan: will monitor blood sugar Status: Acute (3) HTN (hypertension) Assessment & Plan: blood pressure control Status: Acute (4) Chronic atrial fibrillation Assessment & Plan: anticoagulation with Eliquis Status: Acute
--- NOTE | 2016-11-17 18:10 | MRI ---
PROCEDURE: MRI BRAIN WITHOUT CONTRAST HISTORY: CVA COMPARISON: Noncontrast head CT from 11/15/2016 TECHNIQUE: Multiplanar, multisequence MR images of the brain were obtained without intravenous contrast enhancement. FINDINGS: HEMORRHAGE: None DWI: There is a large acute infarction in the right temporal lobe. There are also small areas of acute infarction in the right posterior frontal lobe, insula and the posterior parietal lobe. There is a small acute infarction in the left posterior aviles radiata extending to the posterior limb of internal capsule. There is corresponding T2/FLAIR hyperintensity. Also noted is a 3.5 x 1.6 cm acute hematoma in the right frontal operculum with surrounding vasogenic edema. BRAIN PARENCHYMA: There are mild chronic microangiopathic changes. There is no extra-axial fluid collection. The midline sagittal structures are normal. VENTRICLES: There is moderate age-related global parenchymal volume loss and proportionate enlargement of the ventricles and cortical sulci. CRANIUM: There is normal bone marrow signal pattern. ORBITS: Grossly unremarkable. PARANASAL SINUSES/MASTOIDS: Predominantly clear. VASCULAR SYSTEM: There are normal signal voids in the larger intracranial arteries. OTHER FINDINGS: None. IMPRESSION: 1. Large late acute/ early subacute right MCA territory infarction involving the right temporal lobe. 2. Multifocal late acute/ early subacute infarctions in the right posterior frontal and parietal lobes. 3. 3.5 x 1.6 cm acute hematoma in the right frontal operculum with surrounding vasogenic edema. No evidence of midline shift or herniation. Critical findings were discussed with nurse Myrtle Bolivar on 11/17/2016 at 6 p.m.
--- NOTE | 2016-11-17 19:20 | CP.CCUPN ---
CCU Subjective - Physician Review Subjective (Free Text): MANAGER HOME IMPROVEMENT PROGRESS NOTE Patient examined, interim events reviewed, discussed with Neuro: 86M admitted 2 days ago for recurrent CVA, PMH: DM II, A Fib on no AC, CVAx2 with very minor left sided weakness as per family members. Today, started on Eliquis, recd one dose this AM and underwent Brain MRI this afternoon, which showed R frontal ICH approx. 3 cm size, not associated with mass effect nor midline shift. Hemodynamics have been stable with no episodes of accelerated BP. He is lying in bed, Hob at 30degrees, eyes closed, but opens eyes and responds readily and appropriately to verbal stimuli, conversant and exhibits intelligible speech in Palauan to simple questions. Other vitals: Afebrile, 110/60, HR 74, 18, 96% SPO2 on NC. Allergies: [facility] meds: Colace, Glucotrol XL, Quinapril, Protonix, NSS @ 100ml.hr, Starlix, Zebeta. ROS: as above, no other new pertinent negs or positives on 12 system review. PMSFH: All pertinent Nursing notes reviewed, no other new pertinent information relative to current medical problems noted. No other distress noted: EXAM- HEENT: no icterus, bilateral conjunctival erythema, pupils midline, equal and reactive, no nystagmus, no throat exudates, gag present NECK: no visible JVD, supple, carotids equal upstroke bilat/no bruits CHEST: decreased BS bases, no wheezes audible. HEART: regular, distant, S1S2, no murmur audible, no rubs. ABD: obese, soft, no increased distention, no focal tenderness, no HSM. BS hypoactive. EXT: no LE edema, no peripheral/ digital cyanosis, no calf tenderness or palpable cords, distal pulses intact and symmetrical NEURO: Minimal LUE > LLE weakness, sensory intact. SKIN: no rashes LABS: WBC= 10.8 HGB= 15.0 PLTs = 230K Na= 134 K= 4.0 HCO3= 25 BUN/Cr= 16/0.8 BS= 165 Assessment: 1. Recurrent CVA with Hemorrhagic Transformation 2. Chronic A fib with controlled VR 3. DM II PLAN: 1. Neuro-observation in ICU. 2. Neurochecks Q1H and seizure precautions, HPOB elevation, watch BP trends. 3. All anticoagulants and antiplatelet meds on hold. 4. Cautious IVF hydration on NSS. Watch Serum Na levels. 5. Maintain normoglycemia. 6. DVT prx with SCDs. 7. PT / OT re-eval.
[2016-11-17] MEDS: Insulin Regular 100 units/ml SC SCH (23:02)
[2016-11-17] MEDS: QUINAPRIL HCL 10 MG PO SCH (23:02)
--- NOTE | 2016-11-17 23:21 | CP.PCM.PN ---
Subjective - Date & Time of Evaluation Date of Evaluation: 11/17/16 Time of Evaluation: 19:00 - Subjective Subjective: Mr. Kim was seen and examined at bedside in the presence of his family after I reviewed the MRI of the brain. I discussed with the patient and his family the hemorrhagic conversion involving the right frontal lobe. The patient was clinically stable with normal vital signs and no change in his neurological exam. I explained to the family that the patient's anticoagulation and antiplatelet agents should now be held since he has a bleed , and this may put him at a higher risk of having recurrent stroke since he continues to have atrial fibrillation. They expressed an understanding of the situation. I told them that the patient will be transferred to the ICU for close monitoring and frequent neurologic examinations and a CT head will be done in the AM to evaluate for hematoma stability. Objective - Vital Signs/Intake and Output Vital Signs (last 24 hours): Temp Pulse Resp BP Pulse Ox 98.1 F 83 22 110/62 96 11/17/16 22:00 11/17/16 22:00 11/17/16 22:00 11/17/16 22:00 11/17/16 22:00 Intake and Output: 11/17/16 11/18/16 18:59 06:59 Intake Total 100 Output Total 400 Balance -300 - Medications Medications: Current Medications Bisoprolol Fumarate (Zebeta) 5 mg PO DAILY [facility] Last Admin: 11/17/16 09:14 Dose: 5 mg Docusate Sodium (Colace) 100 mg PO BID [facility] Last Admin: 11/17/16 18:43 Dose: 100 mg Glipizide (Glucotrol Xl) 2.5 mg PO BRK [facility] Last Admin: 11/17/16 09:15 Dose: 2.5 mg Home Med (Patient's Own Medication) 1 unit PO HS [facility] Last Admin: 11/17/16 23:02 Dose: 1 unit Insulin Human Regular (Humulin R) 0 units SC ACHS [facility] PRN Reason: Protocol Last Admin: 11/17/16 23:02 Dose: 1 unit Nateglinide (Starlix) 120 mg PO BID [facility] Last Admin: 11/17/16 18:40 Dose: 120 mg Pantoprazole Sodium (Protonix Ec Tab) 20 mg PO DAILY [facility] Last Admin: 11/17/16 09:14 Dose: 20 mg - Labs Labs: 11/17/16 06:10 03/30/17 06:10 PT 10.1 SECONDS (9.6-11.2) 11/15/16 23:24 INR 0.97 (0.92-1.08) 11/15/16 23:24 APTT 24.0 SECONDS (23.3-32.5) 11/15/16 23:24 - Constitutional Appears: Well, No Acute Distress - Head Exam Head Exam: ATRAUMATIC, NORMAL INSPECTION, NORMOCEPHALIC - Eye Exam Eye Exam: EOMI, Normal appearance, PERRL Pupil Exam: NORMAL ACCOMODATION, PERRL - Neurological Exam Additional comments: Neurologically unchanged compared to the examination performed earlier today. Assessment and Plan (1) CVA (cerebral vascular accident) Status: Acute (2) Intracerebral hematoma Assessment & Plan: Continue conservative management. Status: Acute - Assessment and Plan (Free Text) Assessment: Likely secondary to hemorrhagic conversion of cardio-embolic ischemic stroke. No mass effect or midline shift. No change in clinical or neurological exam. Vital signs are stable. Plan: 1. Transfer to ICU for close observation and frequent neuro exams (Q1 hour) 2. Maintain normoglycemia to avoid hematoma expansion and avoid dextrose containing fluids. 3. Head of bed elevated to 30 degrees. 4. Control blood pressure to maintain normotension. 5. Avoid any anticoagulants or antiplatelet agents. 6. SCD for DVT Px 7. Repeat CT head in AM 8. PT/OT
[2016-11-18 05:32] LABS: BASO # 0.1 K/uL (0.0-0.2); BASO % 0.4 % (0.0-2.0); EOS # 0.1 K/uL (0.0-0.7); EOS % 0.5 % (0.0-4.0); HEMATOCRIT 44.1 % (35.0-51.0); LYMPH # 2.1 K/uL (1.0-4.3); LYMPH % 14.3 % (20.0-40.0); MEAN CELL VOLUME 91.2 fl (80.0-94.0); MEAN CORPUSCULAR HEMOGLOBIN 30.5 pg (27.0-31.0); MEAN CORPUSCULAR HGB CONC 33.5 g/dL (33.0-37.0); MEAN PLATELET VOLUME 9.5 fl (7.2-11.7); MONO # 0.9 K/uL (0.0-0.8); MONO % 6.4 % (0.0-10.0); NEUT # 11.3 K/uL (1.8-7.0); NEUT % 78.4 % (50.0-75.0); RED CELL DISTRIBUTION WIDTH 16.1 % (11.5-14.5); WHITE BLOOD COUNT 14.4 K/uL (4.8-10.8)
[2016-11-18 05:44] LABS: ALKALINE PHOSPHATASE 77 U/L (38-126); ALT/SGPT 43 U/L (21-72); AST/SGOT 43 U/L (17-59); BILIRUBIN,TOTAL 1.3 mg/dl (0.2-1.3); BLOOD UREA NITROGEN 14 mg/dl (9-20); CALCIUM 9.3 mg/dL (8.4-10.2); CARBON DIOXIDE 23 mmol/L (22-30); CHLORIDE 99 mmol/L (98-107); GFR AFRICAN-AMERICAN > 60; GLUCOSE,RANDOM 143 mg/dL (75-110); POTASSIUM 4.1 MMOL/L (3.6-5.0); SODIUM 133 mmol/l (132-148); TOTAL PROTEIN 6.5 G/DL (6.3-8.2)
--- NOTE | 2016-11-18 06:35 | CP.CCUPN ---
CCU Subjective - Physician Review Subjective (Free Text): CARTRIDGE FEEDER PROGRESS NOTE Patient examined, interim events reviewed: Uneventful night, sleeping this Am, but easily arousable, familyat bedside and conversant with them in intelligible Wolof. Otherwise, no distress, no new focal deficits, Afebrile, 113/60, HR 74 A fib, 18, 96% SPO2 on RA. ROS: as above, no other new pertinent negs or positives on 12 system review. PMSFH: All pertinent Nursing notes reviewed, no other new pertinent information relative to current medical problems noted. No other distress noted: EXAM- HEENT: no icterus, bilateral conjunctival erythema, pupils midline, equal and reactive, no nystagmus, no throat exudates, gag present NECK: no visible JVD, supple, carotids equal upstroke bilat/no bruits CHEST: decreased BS bases, no wheezes audible. HEART: regular, distant, S1S2, no murmur audible, no rubs. ABD: obese, soft, no increased distention, no focal tenderness, no HSM. BS hypoactive. EXT: no LE edema, no peripheral/ digital cyanosis, no calf tenderness or palpable cords, distal pulses intact and symmetrical NEURO: Minimal LUE > LLE weakness, sensory intact. SKIN: no rashes LABS: WBC= 14.4 HGB= 14.8 PLTs = 223K Na= 1370 K= 4.1 HCO3= 23 BUN/Cr= 14/0.8 BS= 143 Assessment: 1. Recurrent CVA with Hemorrhagic Transformation 2. Chronic A fib with controlled VR 3. DM II PLAN: 1. Neuro-observation in ICU. repeat CT Brain imaging pending this AM. 2. Neurochecks Q1H and seizure precautions, HPOB elevation, watch BP trends. 3. All anticoagulants and antiplatelet meds on hold. No need for reversal of Eliquis at this time, despite only 1 dose recieved, and unclear if dose had direct sequelae of causing or contributing to ICH. 4. Cautious IVF hydration on NSS. Serum Na level improved. 5. Maintain normoglycemia. 6. DVT prx with SCDs. 7. PT / OT re-eval.
[2016-11-18] MEDS: Insulin Regular 100 units/ml SC SCH ×4 (06:54→22:09)
[2016-11-18] MEDS: GlipiZIDE 2.5 mg SR Tab PO SCH (08:59)
[2016-11-18] MEDS: Pantoprazole 20 mg EC Tab PO SCH (09:00)
--- NOTE | 2016-11-18 09:23 | CP.PCM.PN ---
Subjective - Date & Time of Evaluation Date of Evaluation: 11/18/16 Time of Evaluation: 09:21 - Subjective Subjective: pt was moved to icu last night after hemorhagic conversion noted on mri. per neurologist pt noted to be clnicially improving. eliquis on hold for now. no furthe rdeficits noted. remains somnolent w/ fmaily at bedside. bw noted. ct head this am completed w/ results pending. for acute rehab in am. coardse brath sounds heard cxr no changes ct and mri reviwed Objective - Vital Signs/Intake and Output Vital Signs (last 24 hours): Temp Pulse Resp BP Pulse Ox 99 F 94 H 23 122/73 94 L 11/18/16 08:00 11/18/16 08:57 11/18/16 08:57 11/18/16 08:57 11/18/16 08:57 Intake and Output: 11/18/16 11/18/16 06:59 18:59 Intake Total 100 Output Total 1000 Balance -900 - Medications Medications: Current Medications Bisoprolol Fumarate (Zebeta) 5 mg PO DAILY [facility] Last Admin: 11/18/16 09:00 Dose: 5 mg Docusate Sodium (Colace) 100 mg PO BID [facility] Last Admin: 11/18/16 09:02 Dose: Not Given Glipizide (Glucotrol Xl) 2.5 mg PO BRK [facility] Last Admin: 11/18/16 08:59 Dose: 2.5 mg Home Med (Patient's Own Medication) 1 unit PO HS [facility] Last Admin: 11/17/16 23:02 Dose: 1 unit Insulin Human Regular (Humulin R) 0 units [facility] PRN Reason: Protocol Last Admin: 11/18/16 06:54 Dose: Not Given Nateglinide (Starlix) 120 mg PO BID [facility] Last Admin: 11/18/16 09:00 Dose: 120 mg Pantoprazole Sodium (Protonix Ec Tab) 20 mg PO DAILY [facility] Last Admin: 11/18/16 09:00 Dose: 20 mg - Labs Labs: 11/18/16 04:30 11/18/16 04:30 PT 10.1 SECONDS (9.6-11.2) 11/15/16 23:24 INR 0.97 (0.92-1.08) 11/15/16 23:24 APTT 24.0 SECONDS (23.3-32.5) 11/15/16 23:24 - Constitutional Appears: Well, Non-toxic, No Acute Distress - Head Exam Head Exam: ATRAUMATIC, NORMAL INSPECTION, NORMOCEPHALIC - Eye Exam Eye Exam: EOMI, Normal appearance, PERRL Pupil Exam: NORMAL ACCOMODATION, PERRL - ENT Exam ENT Exam: Mucous Membranes Moist, Normal Exam - Neck Exam Neck Exam: Full ROM, Normal Inspection. absent: Lymphadenopathy - Respiratory Exam Respiratory Exam: Clear to Ausculation Bilateral, NORMAL BREATHING PATTERN - Cardiovascular Exam Cardiovascular Exam: Irregular Rhythm, +S1, +S2. absent: Murmur - GI/Abdominal Exam GI & Abdominal Exam: Soft, Normal Bowel Sounds. absent: Tenderness - Extremities Exam Extremities Exam: Full ROM, Normal Capillary Refill, Normal Inspection. absent : Joint Swelling, Pedal Edema - Back Exam Back Exam: NORMAL INSPECTION - Neurological Exam Neurological Exam: Alert, Awake, CN II-XII Intact, Normal Gait, Oriented x3 Neuro motor strength exam: Left Upper Extremity: 3, Right Upper Extremity: 5, Left Lower Extremity: 5, Right Lower Extremity: 5 - Psychiatric Exam Psychiatric exam: Flat Affect, Normal Mood - Skin Skin Exam: Dry, Intact, Normal Color, Warm Assessment and Plan (1) CVA (cerebral vascular accident) Assessment & Plan: hemorhagic conversion, hold eliquis, neuro and icu care still for acute rehab when stable will monitor closely Status: Acute (2) DVT prophylaxis Assessment & Plan: scd and aehose hold eliquis for now Status: Acute (3) HTN (hypertension) Assessment & Plan: tight bp control cont current meds Status: Acute (4) Diabetes type 2, uncontrolled Assessment & Plan: fsbg, riss home meds Status: Acute - Assessment and Plan (Free Text) Assessment: afib, hold anticoag for now, resume eliquis per cardio/neuro input coard breath sounds-likely rt somnolence from gustavo, encouraged family to kep pt taking deep breaths, will monitor, pt had pna vaccine
[2016-11-18] MEDS: Sodium Chloride 0.9% 1,000 ML IV SCH ×2 (10:15→22:08)
--- NOTE | 2016-11-18 10:46 | CT ---
PROCEDURE: CT HEAD WITHOUT CONTRAST. HISTORY: follow ICH COMPARISON: Comparison made with CT scan brain 11/15/2016 and MRI of the brain 11/17/2016. TECHNIQUE: Axial computed tomography images were obtained through the head/brain without intravenous contrast. This CT scan was performed using one or more of the following dose reduction techniques: Automated exposure control, adjustment of the mA and or kV according to patient's size and or use of iterative technique Radiation dose: Total exam DLP = 1980.67 mGy-cm. FINDINGS: HEMORRHAGE: Re- demonstrated is a large right MCA territory infarct with hemorrhagic conversion. Note that the hemorrhage was of visible on prior MRI 11/17/2016 however new since prior CT scan 11/15/2016. Cytotoxic edema at infarct and hemorrhagic conversion changes to exerts mild mass effect at and results in compression of the overlying sulci as well as mild compression of the right lateral ventricle however no significant midline shift. Mild vascular calcifications are present BRAIN: More localized rim of low-attenuation edema or necrotic brain tissue surrounding more discrete hematoma in the right frontal operculum region present. In addition, mild diffuse/confluent periventricular white matter ischemic changes and multiple tiny lacunar-type infarcts scattered about the deep and subcortical white matter of both cerebral hemispheres less well seen on this study as compared to high-resolution MRI. VENTRICLES: No evidence of obstructive hydrocephalus not withstanding mild compression of the right lateral ventricle. [place] CALVARIUM: Unremarkable. PARANASAL SINUSES: Unremarkable as visualized. No significant inflammatory changes. MASTOID AIR CELLS: Unremarkable as visualized. No inflammatory changes. OTHER FINDINGS: None. IMPRESSION: Re- demonstrated is large right MCA territory infarct with hemorrhagic conversion the largest component which on is located in the right frontal operculum region surrounded by a thin discrete rim of edema and or necrotic brain tissue. The hemorrhagic infarct exerts mild mass effect with overlying sulcal effacement and mild compression of the right lateral ventricle however no significant midline shift. No evidence of hydrocephalus. No new hemorrhages seen.
--- NOTE | 2016-11-18 14:08 | RAD ---
HISTORY: R/O ASPIRATION COMPARISON: 11/15/2016 FINDINGS: LUNGS: Possible linear atelectasis at left base. No pulmonary infiltrate. PLEURA: No significant pleural effusion identified, no pneumothorax apparent. CARDIOVASCULAR: Normal. OSSEOUS STRUCTURES: No significant abnormalities. VISUALIZED UPPER ABDOMEN: Normal. OTHER FINDINGS: None. IMPRESSION: No acute infiltrate.
--- NOTE | 2016-11-18 18:30 | CT ---
PROCEDURE: CT HEAD WITHOUT CONTRAST. HISTORY: F/U ICH COMPARISON: 11/18/2016 TECHNIQUE: Axial computed tomography images were obtained through the head/brain without intravenous contrast. This CT exam was performed using one or more of the following dose reduction techniques: Automated exposure control, adjustment of the mA and/or kV according to patient size, and/or use of iterative reconstruction technique. Radiation dose: Total exam DLP = 868 mGy-cm. FINDINGS: HEMORRHAGE: Re-demonstration of the right MCA distribution infarct with hemorrhagic components along the right frontal lobe. Overall no significant interval change. Mild mass-effect upon the right frontal horn. Extensive cytotoxic edema noted along the right posterior frontal lobe and extending into the temporal lobe. No evidence of subdural hemorrhage. BRAIN: See above no atrophy or chronic microvascular ischemic changes. VENTRICLES: Unremarkable. No hydrocephalus. CALVARIUM: Unremarkable. PARANASAL SINUSES: Unremarkable as visualized. No significant inflammatory changes. MASTOID AIR CELLS: Unremarkable as visualized. No inflammatory changes. OTHER FINDINGS: None. IMPRESSION: No significant interval change in a right MCA distribution infarct with hemorrhagic components anteriorly.
--- NOTE | 2016-11-18 20:00 | CP.PCM.PN ---
Subjective - Date & Time of Evaluation Date of Evaluation: 11/18/16 Time of Evaluation: 19:10 - Subjective Subjective: patient has no complaints. family is at the bedside Objective - Vital Signs/Intake and Output Vital Signs (last 24 hours): Temp Pulse Resp BP Pulse Ox 98.5 F 95 H 25 H 106/65 95 11/18/16 16:00 11/18/16 18:00 11/18/16 18:00 11/18/16 18:00 11/18/16 18:00 Intake and Output: 11/18/16 11/19/16 18:59 06:59 Intake Total 120 Output Total 300 Balance -180 - Medications Medications: Current Medications Bisoprolol Fumarate (Zebeta) 5 mg PO DAILY [facility] Last Admin: 11/18/16 09:00 Dose: 5 mg Docusate Sodium (Colace) 100 mg PO BID [facility] Last Admin: 11/18/16 17:20 Dose: Not Given Glipizide (Glucotrol Xl) 2.5 mg PO BRK [facility] Last Admin: 11/18/16 08:59 Dose: 2.5 mg Home Med (Patient's Own Medication) 1 unit PO HS [facility] Last Admin: 11/17/16 23:02 Dose: 1 unit Sodium Chloride (Sodium Chloride 0.9%) 1,000 mls @ 100 mls/hr IV .Q10H [facility] Stop: 11/19/16 10:01 Last Admin: 11/18/16 10:15 Dose: 100 mls/hr Insulin Human Regular (Humulin R) 0 units SC ACHS [facility] PRN Reason: Protocol Last Admin: 11/18/16 17:21 Dose: Not Given Nateglinide (Starlix) 120 mg PO BID [facility] Last Admin: 11/18/16 17:26 Dose: 120 mg Pantoprazole Sodium (Protonix Ec Tab) 20 mg PO DAILY [facility] Last Admin: 11/18/16 09:00 Dose: 20 mg Sodium Chloride (Sodium Chloride Tab) 1 gm PO DAILY [facility] Last Admin: 11/18/16 17:26 Dose: 1 gm - Labs Labs: 11/18/16 04:30 11/18/16 04:30 PT 10.1 SECONDS (9.6-11.2) 11/15/16 23:24 INR 0.97 (0.92-1.08) 11/15/16 23:24 APTT 24.0 SECONDS (23.3-32.5) 11/15/16 23:24 - Constitutional Appears: Non-toxic - Head Exam Head Exam: NORMAL INSPECTION - Eye Exam Eye Exam: Normal appearance - ENT Exam ENT Exam: Mucous Membranes Moist - Neck Exam Neck Exam: Full ROM - Respiratory Exam Respiratory Exam: Decreased Breath Sounds - Cardiovascular Exam Cardiovascular Exam: Irregular Rhythm - GI/Abdominal Exam GI & Abdominal Exam: Normal Bowel Sounds - Rectal Exam Rectal Exam: Deferred - Back Exam Back Exam: NORMAL INSPECTION - Neurological Exam Neurological Exam: Alert - Psychiatric Exam Psychiatric exam: Normal Affect - Skin Skin Exam: Normal Color Assessment and Plan (1) CVA (cerebral vascular accident) Assessment & Plan: intracranial hemmorrhage. off anticoagulation/antiplatelet Status: Acute (2) Diabetes type 2, uncontrolled Assessment & Plan: follow glucose level Status: Acute (3) HTN (hypertension) Assessment & Plan: monitor Status: Acute (4) Chronic atrial fibrillation Assessment & Plan: rate is controlled. off anticoagulants Status: Acute
--- NOTE | 2016-11-18 20:35 | CP.PCM.PN ---
Subjective - Date & Time of Evaluation Date of Evaluation: 11/18/16 Time of Evaluation: 13:00 - Subjective Subjective: Mr. Kim was seen and examined at bedside with his and granddaughter present. There were no acute events overnight and he has been stable neurologically. He denied headache, nausea, chest pain or new weakness. Objective - Vital Signs/Intake and Output Vital Signs (last 24 hours): Temp Pulse Resp BP Pulse Ox 98.5 F 95 H 25 H 106/65 95 11/18/16 16:00 11/18/16 18:00 11/18/16 18:00 11/18/16 18:00 11/18/16 18:00 Intake and Output: 11/18/16 11/19/16 18:59 06:59 Intake Total 120 Output Total 300 Balance -180 - Medications Medications: Current Medications Bisoprolol Fumarate (Zebeta) 5 mg PO DAILY [facility] Last Admin: 11/18/16 09:00 Dose: 5 mg Docusate Sodium (Colace) 100 mg PO BID [facility] Last Admin: 11/18/16 17:20 Dose: Not Given Glipizide (Glucotrol Xl) 2.5 mg PO BRK [facility] Last Admin: 11/18/16 08:59 Dose: 2.5 mg Home Med (Patient's Own Medication) 1 unit PO HS [facility] Last Admin: 11/17/16 23:02 Dose: 1 unit Sodium Chloride (Sodium Chloride 0.9%) 1,000 mls @ 100 mls/hr IV .Q10H [facility] Stop: 11/19/16 10:01 Last Admin: 11/18/16 10:15 Dose: 100 mls/hr Insulin Human Regular (Humulin R) 0 units SC ACHS [facility] PRN Reason: Protocol Last Admin: 11/18/16 17:21 Dose: Not Given Nateglinide (Starlix) 120 mg PO BID [facility] Last Admin: 11/18/16 17:26 Dose: 120 mg Pantoprazole Sodium (Protonix Ec Tab) 20 mg PO DAILY [facility] Last Admin: 11/18/16 09:00 Dose: 20 mg Sodium Chloride (Sodium Chloride Tab) 1 gm PO DAILY [facility] Last Admin: 11/18/16 17:26 Dose: 1 gm - Labs Labs: 11/18/16 04:30 11/18/16 04:30 PT 10.1 SECONDS (9.6-11.2) 11/15/16 23:24 INR 0.97 (0.92-1.08) 11/15/16 23:24 APTT 24.0 SECONDS (23.3-32.5) 11/15/16 23:24 - Constitutional Appears: Well - Head Exam Head Exam: ATRAUMATIC, NORMAL INSPECTION, NORMOCEPHALIC - Neck Exam Neck Exam: Full ROM, Normal Inspection. absent: Lymphadenopathy - Neurological Exam Neurological Exam: Abnormal Gait, Alert, Awake, CN II-XII Intact Neuro motor strength exam: Left Upper Extremity: 3, Right Upper Extremity: 4, Left Lower Extremity: 3, Right Lower Extremity: 4 Additional comments: Neurologically unchanged compared to previous examination Assessment and Plan (1) CVA (cerebral vascular accident) Assessment & Plan: Stable neurologically after cardio-embolic appearing right MCA ischemic stroke with some hemorrhagic conversion anteriorly. CT head has been stable without any midline shift or significant mass effect. Sodium level is slightly low. Will give 1 gram sodium tabs PO to maintain levels and avoid vasogenic edema. Status: Acute (2) Intracerebral hematoma Status: Acute - Assessment and Plan (Free Text) Assessment: Stable appearing on CT head. Will repeat CT head tonight and another CT head in 24 hours to follow. Plan for inpatient PT if he continues to show stability or improvement clinically.
[2016-11-18] MEDS: QUINAPRIL HCL 10 MG PO SCH (22:10)
[2016-11-19 06:44] LABS: ALKALINE PHOSPHATASE 69 U/L (38-126); ALT/SGPT 43 U/L (21-72); AST/SGOT 38 U/L (17-59); BILIRUBIN,TOTAL 0.9 mg/dl (0.2-1.3); BLOOD UREA NITROGEN 17 mg/dl (9-20); CARBON DIOXIDE 21 mmol/L (22-30); CHLORIDE 104 mmol/L (98-107); CHOLESTEROL 165 mg/dL (0-199); GFR AFRICAN-AMERICAN > 60; GLUCOSE,RANDOM 84 mg/dL (75-110); POTASSIUM 4.2 MMOL/L (3.6-5.0); SODIUM 138 mmol/l (132-148); TOTAL PROTEIN 6.1 G/DL (6.3-8.2)
[2016-11-19 06:46] LABS: BASO # 0.1 K/uL (0.0-0.2); BASO % 0.6 % (0.0-2.0); EOS # 0.3 K/uL (0.0-0.7); EOS % 3.4 % (0.0-4.0); HEMATOCRIT 43.2 % (35.0-51.0); LYMPH % 19.8 % (20.0-40.0); MEAN CELL VOLUME 93.4 fl (80.0-94.0); MEAN CORPUSCULAR HEMOGLOBIN 31.1 pg (27.0-31.0); MEAN CORPUSCULAR HGB CONC 33.3 g/dL (33.0-37.0); MEAN PLATELET VOLUME 9.5 fl (7.2-11.7); MONO # 0.7 K/uL (0.0-0.8); MONO % 7.4 % (0.0-10.0); NEUT % 68.8 % (50.0-75.0); NRBC % 0.1 % (0.0-0.0); RED CELL DISTRIBUTION WIDTH 16.1 % (11.5-14.5); WHITE BLOOD COUNT 10.2 K/uL (4.8-10.8)
[2016-11-19] MEDS: Insulin Regular 100 units/ml SC SCH ×3 (06:56→16:30)
--- NOTE | 2016-11-19 07:36 | CP.PCM.PN ---
Subjective - Date & Time of Evaluation Date of Evaluation: 11/19/16 Time of Evaluation: 07:36 - Subjective Subjective: no complaints/distress neuro exam remains as assessed lue 3-4/5 rue 5/5, ble 5/5 for acute rehab. all imaging and bw noted case d/c w/ dr plascencia pending discussion w/ dr abreu prior to dc case d/c w/ icu attending Objective - Vital Signs/Intake and Output Vital Signs (last 24 hours): Temp Pulse Resp BP Pulse Ox 98.5 F 95 H 25 H 106/65 95 11/18/16 16:00 11/18/16 18:00 11/18/16 18:00 11/18/16 18:00 11/18/16 18:00 - Medications Medications: Current Medications Bisoprolol Fumarate (Zebeta) 5 mg PO DAILY [facility] Last Admin: 11/18/16 09:00 Dose: 5 mg Docusate Sodium (Colace) 100 mg PO BID [facility] Last Admin: 11/18/16 17:20 Dose: Not Given Glipizide (Glucotrol Xl) 2.5 mg PO BRK [facility] Last Admin: 11/18/16 08:59 Dose: 2.5 mg Home Med (Patient's Own Medication) 1 unit PO HS [facility] Last Admin: 11/18/16 22:10 Dose: 1 unit Sodium Chloride (Sodium Chloride 0.9%) 1,000 mls @ 100 mls/hr IV .Q10H [facility] Stop: 11/19/16 10:01 Last Admin: 11/18/16 22:08 Dose: 100 mls/hr Insulin Human Regular (Humulin R) 0 units SC ACHS [facility] PRN Reason: Protocol Last Admin: 11/19/16 06:56 Dose: Not Given Nateglinide (Starlix) 120 mg PO BID [facility] Last Admin: 11/18/16 17:26 Dose: 120 mg Pantoprazole Sodium (Protonix Ec Tab) 20 mg PO DAILY [facility] Last Admin: 11/18/16 09:00 Dose: 20 mg Sodium Chloride (Sodium Chloride Tab) 1 gm PO DAILY [facility] Last Admin: 11/18/16 17:26 Dose: 1 gm - Labs Labs: 11/19/16 04:30 11/19/16 04:30 PT 10.1 SECONDS (9.6-11.2) 11/15/16 23:24 INR 0.97 (0.92-1.08) 11/15/16 23:24 APTT 24.0 SECONDS (23.3-32.5) 11/15/16 23:24 - Constitutional Appears: Well, Non-toxic, No Acute Distress - Head Exam Head Exam: ATRAUMATIC, NORMAL INSPECTION, NORMOCEPHALIC - Eye Exam Eye Exam: EOMI, Normal appearance, PERRL Pupil Exam: NORMAL ACCOMODATION, PERRL - ENT Exam ENT Exam: Mucous Membranes Moist, Normal Exam - Neck Exam Neck Exam: Full ROM, Normal Inspection. absent: Lymphadenopathy - Respiratory Exam Respiratory Exam: Clear to Ausculation Bilateral, NORMAL BREATHING PATTERN - Cardiovascular Exam Cardiovascular Exam: REGULAR RHYTHM, +S1, +S2. absent: Murmur - GI/Abdominal Exam GI & Abdominal Exam: Soft, Normal Bowel Sounds. absent: Tenderness - Extremities Exam Extremities Exam: Full ROM, Normal Capillary Refill, Normal Inspection. absent : Joint Swelling, Pedal Edema - Back Exam Back Exam: NORMAL INSPECTION - Neurological Exam Neurological Exam: Alert, Awake, CN II-XII Intact, Normal Gait, Oriented x3 - Psychiatric Exam Psychiatric exam: Normal Affect, Normal Mood - Skin Skin Exam: Dry, Intact, Normal Color, Warm Assessment and Plan (1) CVA (cerebral vascular accident) Assessment & Plan: cont meds, bp and glucose control imaging noted downgrade to tele today all consults appriciated acute rehab today if cleared hold eliquids until cleared by neuro neuro exam as assessed Status: Acute (2) DVT prophylaxis Status: Acute (3) HTN (hypertension) Status: Acute (4) Diabetes type 2, uncontrolled Status: Acute - Assessment and Plan (Free Text) Assessment: (2) DVT prophylaxis Assessment & Plan: scd and aehose hold eliquis for now Status: Acute (3) HTN (hypertension) Assessment & Plan: tight bp control cont current meds Status: Acute (4) Diabetes type 2, uncontrolled Assessment & Plan: fsbg, riss home meds Status: Acute afib, hold anticoag for now, resume eliquis per cardio/neuro input coarse breath sounds-not heard today-likely rt somnolence from gustavo, encouraged family to kep pt taking deep breaths, will monitor, pt had pna vaccine
[2016-11-19] MEDS ORDERED: Bisacodyl 5mg EC Tab PO ONE (07:54)
[2016-11-19] MEDS: Pantoprazole 20 mg EC Tab PO SCH (08:36)
[2016-11-19] MEDS: GlipiZIDE 2.5 mg SR Tab PO SCH (08:36)
--- NOTE | 2016-11-19 09:03 | CP.PCM.PN ---
Subjective - Date & Time of Evaluation Date of Evaluation: 11/19/16 Time of Evaluation: 07:30 - Subjective Subjective: Mr. Kim was seen and examined today at bedside in the ICU in the presence of his family. There were no acute events overnight. The patient stated that he felt well and denied headache, nausea, visual changes, new weakness or any new sensory changes. Objective - Vital Signs/Intake and Output Vital Signs (last 24 hours): Temp Pulse Resp BP Pulse Ox 97.8 F 99 H 24 125/79 94 L 11/19/16 04:00 11/19/16 06:00 11/19/16 06:00 11/19/16 06:00 11/19/16 06:00 Intake and Output: 11/19/16 11/19/16 06:59 18:59 Intake Total 220 Output Total 125 Balance 95 - Medications Medications: Current Medications Bisoprolol Fumarate (Zebeta) 5 mg PO DAILY [facility] Last Admin: 11/19/16 08:37 Dose: Not Given Docusate Sodium (Colace) 100 mg PO BID [facility] Last Admin: 11/19/16 08:36 Dose: Not Given Glipizide (Glucotrol Xl) 2.5 mg PO BRK [facility] Last Admin: 11/19/16 08:36 Dose: 2.5 mg Home Med (Patient's Own Medication) 1 unit PO HS [facility] Last Admin: 11/18/16 22:10 Dose: 1 unit Sodium Chloride (Sodium Chloride 0.9%) 1,000 mls @ 100 mls/hr IV .Q10H [facility] Stop: 11/19/16 10:01 Last Admin: 11/18/16 22:08 Dose: 100 mls/hr Insulin Human Regular (Humulin R) 0 units SC ACHS [facility] PRN Reason: Protocol Last Admin: 11/19/16 06:56 Dose: Not Given Nateglinide (Starlix) 120 mg PO BID [facility] Last Admin: 11/19/16 08:37 Dose: 120 mg Pantoprazole Sodium (Protonix Ec Tab) 20 mg PO DAILY [facility] Last Admin: 11/19/16 08:36 Dose: 20 mg Sodium Chloride (Sodium Chloride Tab) 1 gm PO DAILY [facility] Last Admin: 11/19/16 08:37 Dose: 1 gm - Labs Labs: 11/19/16 04:30 11/19/16 04:30 PT 10.1 SECONDS (9.6-11.2) 11/15/16 23:24 INR 0.97 (0.92-1.08) 11/15/16 23:24 APTT 24.0 SECONDS (23.3-32.5) 11/15/16 23:24 - Head Exam Head Exam: ATRAUMATIC, NORMAL INSPECTION, NORMOCEPHALIC - Eye Exam Eye Exam: EOMI, Normal appearance, PERRL - Neck Exam Neck Exam: Full ROM, Normal Inspection. absent: Lymphadenopathy - Respiratory Exam Respiratory Exam: Clear to Ausculation Bilateral, NORMAL BREATHING PATTERN - Cardiovascular Exam Cardiovascular Exam: REGULAR RHYTHM, +S1, +S2. absent: Murmur - Neurological Exam Neurological Exam: Alert, Awake, CN II-XII Intact, Normal Gait, Oriented x3 Neuro motor strength exam: Left Upper Extremity: 4, Right Upper Extremity: 5, Left Lower Extremity: 4, Right Lower Extremity: 5 Additional comments: NIHSS = 3 Assessment and Plan (1) CVA (cerebral vascular accident) Assessment & Plan: Stable CT head on follow-up. Will obtain one more scan tonight as a 24-hour follow up from yesterday and will transfer out of ICU if it is stable with a plan to initiate inpatient rehab. Will consider starting aspirin 81 mg for ischemic stroke prevention, if CT head shows good resolution of hemorrhage. Continue monitoring serum glucose and sodium daily to ensure normal ranges. Continue strict BP control. PT/OT. Status: Acute (2) Intracerebral hematoma Status: Acute - Assessment and Plan (Free Text) Assessment: Stable Plan: Follow-up 24-hour CT tonight at 6 PM.
--- NOTE | 2016-11-19 11:58 | PN ---
DATE: 11/19/2016 CRITICAL CARE PROGRESS NOTE LOCATION: The patient in ICU, bed 425. TIME SPENT: 35 minutes. The patient is seen and evaluated at the bedside. Discussed with PMD. Events since admission reviewed. An 86-year-old male admitted with intracerebral hematoma uneventful overnight, telemetry - sinus rhythm, afebrile, normotensive, saturating 96% on room air remains alert, awake, follows commands appropriately. Denies headache, shortness of breath, chest pain, palpitations. No abdominal pain or diarrhea. PHYSICAL EXAMINATION: VITAL SIGNS: Temperature 97.8, heart rate 96 regular, respiratory rate 18, thoracoabdominal blood pressure 116/58, saturating 98% on room air. Intake 340 , output ____. HEAD, EYES, EARS, NOSE, AND THROAT: Pupils reactive to light. No icterus, no nystagmus. Oral mucosa moist. NECK: Supple. No JVD, no carotid bruit. CHEST: Bilateral breath sounds diminished intensity. Clear to auscultation. HEART: Rhythm regular, S1, S2 distant. No audible murmur or rub. ABDOMEN: Bowel sounds present, soft, obese. EXTREMITIES: No edema, no cyanosis, no palpable cord. NEUROLOGIC: Left upper extremity 3-4/5, right upper extremity 5/5, both lower extremities 5/5. SKIN: Without rash. Peripheral pulses are intact, but reduced. LABORATORY DATA: WBC 10.2, hemoglobin 14.4, hematocrit 43.2, platelet count 199. PT 10.1, INR 0.97. PTT 24. SMA-7: Sodium 138, potassium 4.2, chloride 104, CO2 of 21, blood urea nitrogen 17, creatinine 0.9. Hemoglobin A1c pending. Calcium 9, total bilirubin 0.9, AST 38, ALT 43, alkaline phosphatase 69, total protein 6.1, albumin 3, cholesterol 165, LDL 97, HDL 37. Head CT done at 6:00 on 11/18 - demonstration of the right MCA distribution infarct with hemorrhagic component along the right frontal lobe. Overall, no significant interval change. Mild mass effect upon the right frontal horn, extensive cytotoxic edema noted along the right posterior frontal lobe and extending into the right temporal lobe, status post CVA with hemorrhagic component, remains normotensive, afebrile, asymptomatic, subtle weakness of the left upper extremity unchanged. Seen by neurology consult. Awaiting for repeat CT today. Stable for PT, OT, may consider transfer to a telemetry floor. Continue ____ 5 mg p.o. daily, Colace 100 mg p.o. twice daily, glipizide 2.5 mg with breakfast for diabetes mellitus type 2, Starlix 120 mg p.o. b.i.d., Protonix 20 mg p.o. daily. Hold anticoagulation due to hemorrhagic component of the CVA. Repeat CT head. If remains unchanged, consider adding Ecotrin 81 mg daily for stroke prevention. Bradly Salgado MD cc: [id number] TT: 11/19/2016 11:58:03 Confirmation # [id number] Dictation # [id number] [email or web address]
--- NOTE | 2016-11-19 19:09 | CP.PCM.DIS ---
Provider - Provider Date of Admission: 11/16/16 00:12 Attending physician: Charity Bird MD Time Spent in preparation of Discharge (in minutes): 15 Diagnosis - Discharge Diagnosis (1) CVA (cerebral vascular accident) Status: Acute Priority: High (2) DVT prophylaxis Status: Acute (3) HTN (hypertension) Status: Acute (4) Diabetes type 2, uncontrolled Status: Acute Hospital Course - Lab Results Lab Results: Micro Results 11/17/16 11:28 Naris MRSA Culture (Admit) - Final MRSA NOT DETECTED Most Recent Lab Values WBC 10.2 K/uL (4.8-10.8) 11/19/16 04:30 RBC 4.62 Mil/uL (4.40-5.90) 11/19/16 04:30 Hgb 14.4 g/dL (12.0-18.0) 11/19/16 04:30 Hct 43.2 % (35.0-51.0) 11/19/16 04:30 MCV 93.4 fl (80.0-94.0) D 11/19/16 04:30 MCH 31.1 pg (27.0-31.0) H 11/19/16 04:30 MCHC 33.3 g/dL (33.0-37.0) 11/19/16 04:30 RDW 16.1 % (11.5-14.5) H 11/19/16 04:30 Plt Count 199 K/uL (130-400) 11/19/16 04:30 MPV 9.5 fl (7.2-11.7) 11/19/16 04:30 Neut % (Auto) 68.8 % (50.0-75.0) 11/19/16 04:30 Lymph % (Auto) 19.8 % (20.0-40.0) L 11/19/16 04:30 [place] % (Auto) 7.4 % (0.0-10.0) 11/19/16 04:30 Eos % (Auto) 3.4 % (0.0-4.0) 11/19/16 04:30 Baso % (Auto) 0.6 % (0.0-2.0) 11/19/16 04:30 Neut # 7.0 K/uL (1.8-7.0) 11/19/16 04:30 Lymph # 2.0 K/uL (1.0-4.3) 11/19/16 04:30 [place] # 0.7 K/uL (0.0-0.8) 11/19/16 04:30 Eos # 0.3 K/uL (0.0-0.7) 11/19/16 04:30 Baso # 0.1 K/uL (0.0-0.2) 11/19/16 04:30 PT 10.1 SECONDS (9.6-11.2) 11/15/16 23:24 INR 0.97 (0.92-1.08) 11/15/16 23:24 APTT 24.0 SECONDS (23.3-32.5) 11/15/16 23:24 Sodium 138 mmol/l (132-148) 11/19/16 04:30 Potassium 4.2 MMOL/L (3.6-5.0) 11/19/16 04:30 Chloride 104 mmol/L (98-107) 11/19/16 04:30 Carbon Dioxide 21 mmol/L (22-30) L 11/19/16 04:30 Anion Gap 17 (10-20) 11/19/16 04:30 BUN 17 mg/dl (9-20) 11/19/16 04:30 Creatinine 0.9 mg/dL (0.8-1.5) 11/19/16 04:30 Est GFR ( Amer) > 60 11/19/16 04:30 Est GFR (Non-Af Amer) > 60 11/19/16 04:30 POC Glucose (mg/dL) 200 mg/dL (65-110) H 11/19/16 16:26 Random Glucose 84 mg/dL (75-110) 11/19/16 04:30 Hemoglobin A1c 9.7 % (4.2-6.5) H 11/15/16 08:48 Calcium 9.0 mg/dL (8.4-10.2) 11/19/16 04:30 Total Bilirubin 0.9 mg/dl (0.2-1.3) 11/19/16 04:30 AST 38 U/L (17-59) 11/19/16 04:30 ALT 43 U/L (21-72) 11/19/16 04:30 Alkaline Phosphatase 69 U/L (38-126) 11/19/16 04:30 Troponin I < 0.0120 ng/mL (0.00-0.120) 11/15/16 23:47 Total Protein 6.1 G/DL (6.3-8.2) L 11/19/16 04:30 Albumin 3.0 g/dL (3.5-5.0) L 11/19/16 04:30 Globulin 3.1 gm/dL (2.2-3.9) 11/19/16 04:30 Albumin/Globulin Ratio 1.0 (1.0-2.1) 11/19/16 04:30 Triglycerides 114 mg/DL (0-149) D 11/19/16 04:30 Cholesterol 165 mg/dL (0-199) 11/19/16 04:30 LDL Cholesterol Direct 97 mg/dL (0-129) 11/19/16 04:30 HDL Cholesterol 37 MG/DL (30-70) 11/19/16 04:30 Blood Type A POSITIVE 11/15/16 23:24 Blood Type Confirm A POSITIVE 11/16/16 01:14 Antibody Screen Negative 11/15/16 23:24 BBK History Checked No verified bt 11/15/16 23:24 Discharge Exam - Head Exam Head Exam: ATRAUMATIC, NORMAL INSPECTION, NORMOCEPHALIC Discharge Plan - Discharge Medications Prescriptions: Aspirin [Adult Low Dose Aspirin EC] 81 mg PO DAILY #30 tablet.dr - Follow Up Plan Condition: FAIR Disposition: REHAB FACILITY/REHAB UNIT Additional Instructions: cleared by neuro for acute rehab. no eliquis x 2 wks. asa 81mg po only meds pe rmed rec, rted prn fianl dx-cva
[2016-11-19 19:42] VITALS: BP 93/63; PULSE 86; RESP 14; TEMP 98.1; O2SAT 98
--- NOTE | 2016-11-19 19:51 | CT ---
EXAM: CT Head Without Intravenous Contrast CLINICAL HISTORY: 86 years old, male; Signs and symptoms; Other: F/u ich; Additional info: Follow ich TECHNIQUE: Axial computed tomography images of the head/brain without intravenous contrast. This CT exam was performed using one or more of the following dose reduction techniques: automated exposure control, adjustment of the mA and/or kV according to patient size, and/or use of iterative reconstruction technique. Coronal and sagittal reformatted images were created and reviewed. EXAM DATE/TIME: 11/19/2016 6:08 PM COMPARISON: Prior head CT of 11/18/2016 6:06 PM FINDINGS: LIMITATIONS: Exam is limited by mild to moderate streak/motion artifact. BRAIN: Stable appearance of a 3.4 x 1.6 x 3.2 cm acute intraparenchymal hematoma in the right frontal lobe. Stable appearance of small amount of acute subarachnoid hemorrhage in the right frontal and temporal lobes. Stable appearance of multifocal areas of low density in the right frontal, temporal, and parietal lobes, involving the cortex and white matter, highly suspicious for multiple areas of edema, secondary to an acute right MCA territory infarct. Associated intracranial mass effect appears unchanged. There is slight 2 mm shift of the midline to the left. Mild, diffuse sulcal effacement is again seen in the right cerebral hemisphere. Stable appearance of a small area of encephalomalacia in the left occipital lobe medially, most likely secondary to chronic infarct. No new areas of hemorrhage seen within the brain. No acute extra-axial fluid collections visualized. No evidence of basilar cistern effacement or ventricular effacement. VENTRICLES: Ventricles are stable in size. BONES/JOINTS: No acute fractures or other acute bony abnormality noted. SOFT TISSUES: No acute abnormality of the visualized soft tissues is seen. VASCULATURE: Atherosclerotic calcification. SINUSES: Visualized paranasal sinuses appear clear. MASTOID AIR CELLS: Mastoid air cells appear clear. IMPRESSION: - Overall, no change compared to a head CT done 12 hours prior. - Findings most compatible with a large, acute right-sided MCA territory hemorrhagic infarction. - Stable appearance of a 3.4 cm intraparenchymal hematoma in the right frontal lobe and a small amount of subarachnoid hemorrhage in the right frontal and temporal lobes. - Associated mild mass effect is unchanged, with 2 mm midline shift to the left again seen. - See above for remaining findings.
--- NOTE | 2016-12-01 14:30 | EEG ---
DATE: 11/16/2016 The record is obtained for a history of CVA. The record was obtained while the patient was awake, re stless, and having movement artifacts. The record was symmetrically equal on both sides with a veloc ity of 7 cycles per second. The waves are fairly formed, fairly organized with a posterior distribut ion, moderate in amplitude, reactive to eye opening by attenuation. There were some sharp waves that were seen from time to time, and this occurred more in the central area. The record did not show an y changes with photic stimulation. The hyperventilation was omitted. There were eye movement artifa ct, electrode artifact, and muscle movement artifacts. There were periods of drowsiness during which attenuation and slowing of the record were seen and theta waves were seen. There were EKG artifacts that were seen. SUMMARY: In sum, this is a record that is abnormal record, significant for generalized slowing, and the presence of sharp waves that occurred from time to time in the central area of the brain. This m ight be consistent with encephalopathy. Clinical correlation is recommended. Umang Powell MD cc: [phone] TT: 12/01/2016 08:44:11 Confirmation # [id number] Dictation # [id number] yeimi
== END 2016-11-19 20:30 | DRG 65 ==
LOC: H.ER 23:15 → H.ERHOLD 11-16 00:12 → H.TEL 11-16 20:43 → H.ICU/CCU 11-17 19:30
PROVIDERS: ADMIT Family Medicine; ATTEND Family Medicine
DX: I63.411 Cerebral infarction due to embolism of right middle cerebral artery (principal); G81.94 Hemiplegia, unspecified affecting left nondominant side; E11.65 Type 2 diabetes mellitus with hyperglycemia; I50.9 Heart failure, unspecified; I11.0 Hypertensive heart disease with heart failure; I48.2 Chronic atrial fibrillation; Z86.73 Personal history of transient ischemic attack (TIA), and cerebral infarction without residual deficits; E78.00 Pure hypercholesterolemia, unspecified; Z79.82 Long term (current) use of aspirin; I69.920 Aphasia following unspecified cerebrovascular disease; Z90.49 Acquired absence of other specified parts of digestive tract

== ENCOUNTER 2016-11-17 15:22 | Inpatient (IN) | payer MEDICARE ==
[2016-11-19 20:44] VITALS: BMI 25.7
[2016-11-19] MEDS: Insulin Regular 100 units/ml SC SCH (21:43)
[2016-11-19] MEDS ORDERED: QUINAPRIL HCL 10 MG PO SCH (22:15)
[2016-11-20] MEDS: Insulin Regular 100 units/ml SC SCH ×4 (06:30→21:16)
[2016-11-20 08:03] LABS: BASO # 0.1 K/uL (0.0-0.2); BASO % 0.7 % (0.0-2.0); EOS # 0.5 K/uL (0.0-0.7); EOS % 5.7 % (0.0-4.0); HEMATOCRIT 44.3 % (35.0-51.0); LYMPH % 22.7 % (20.0-40.0); MEAN CELL VOLUME 92.1 fl (80.0-94.0); MEAN CORPUSCULAR HEMOGLOBIN 30.8 pg (27.0-31.0); MEAN CORPUSCULAR HGB CONC 33.4 g/dL (33.0-37.0); MEAN PLATELET VOLUME 9.2 fl (7.2-11.7); MONO # 0.6 K/uL (0.0-0.8); NEUT # 5.7 K/uL (1.8-7.0); NEUT % 63.9 % (50.0-75.0); NRBC % 0.1 % (0.0-0.0); RED CELL DISTRIBUTION WIDTH 15.9 % (11.5-14.5); WHITE BLOOD COUNT 8.9 K/uL (4.8-10.8)
[2016-11-20 08:13] LABS: ALKALINE PHOSPHATASE 78 U/L (38-126); ALT/SGPT 45 U/L (21-72); AST/SGOT 41 U/L (17-59); BILIRUBIN,TOTAL 0.8 mg/dl (0.2-1.3); BLOOD UREA NITROGEN 13 mg/dl (9-20); CALCIUM 9.4 mg/dL (8.4-10.2); CARBON DIOXIDE 23 mmol/L (22-30); CHLORIDE 103 mmol/L (98-107); GFR AFRICAN-AMERICAN > 60; GLUCOSE,RANDOM 161 mg/dL (75-110); POTASSIUM 3.9 MMOL/L (3.6-5.0); SODIUM 138 mmol/l (132-148); TOTAL PROTEIN 6.5 G/DL (6.3-8.2)
[2016-11-20] MEDS: GlipiZIDE 2.5 mg SR Tab PO SCH (08:30)
[2016-11-20] MEDS ORDERED: Sodium Chloride 0.9% 500 ML IV ONE (08:39)
--- NOTE | 2016-11-20 09:24 | CP.PCM.HP ---
History of Present Illness - History of Present Illness History of Present Illness: pt admitted for rehab after cva, bp was low but correcteda after nss bolus by dr abreu. pt offers no comlpaints no garcia, cp. pt in afib-chronic. all ext 5/5 at [facility]. distal pms intact. Present on Admission - Present on Admission Any Indicators Present on Admission: Yes History of Uncontrolled Diabetes: Yes Review of Systems - Neurological Neurological: As Per HPI, Focal Weakness Past Patient History - Past Medical History & Family History Past Medical History?: Yes - Past Social History Smoking Status: Former Smoker - CARDIAC Hx Cardiac Disorders: Yes Hx Atrial Fibrillation: Yes (Previously on Xarelto) Hx Hypertension: Yes - PULMONARY Hx Respiratory Disorders: No - NEUROLOGICAL HX Cerebrovascular Accident: Yes (2006 & 2015) Hx Transient Ischemic Attacks (TIA): Yes - HEENT Hx Macular Degeneration: Yes (Right eye) Other/Comment: - 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 - RENAL Hx Chronic Kidney Disease: No - ENDOCRINE/METABOLIC Hx Diabetes Mellitus Type 2: Yes - HEMATOLOGICAL/ONCOLOGICAL Hx AIDS: No Hx Human Immunodeficiency Virus (HIV): No - INTEGUMENTARY Hx Dermatological Problems: No - MUSCULOSKELETAL/RHEUMATOLOGICAL Hx Falls: No - GASTROINTESTINAL Hx Gastrointestinal Disorders: No - GENITOURINARY/GYNECOLOGICAL Hx Genitourinary Disorders: No - PSYCHIATRIC Hx Substance Use: No - SURGICAL HISTORY Hx Cholecystectomy: Yes (July 2000) - ANESTHESIA Hx Anesthesia: Yes Hx Anesthesia Reactions: No Hx Malignant Hyperthermia: No Has any member of the family had a problem w/ anesthesia?: No Meds Allergies/Adverse Reactions: Allergies Allergy/AdvReac Type Severity Reaction Status Date / Time No Known Allergies Allergy Verified 11/19/16 20:44 Physical Exam - Constitutional Appears: Well, Non-toxic, No Acute Distress - Head Exam Head Exam: ATRAUMATIC, NORMAL INSPECTION, NORMOCEPHALIC - Eye Exam Eye Exam: EOMI, Normal appearance, PERRL Pupil Exam: NORMAL ACCOMODATION, PERRL - ENT Exam ENT Exam: Mucous Membranes Moist, Normal Exam - Neck Exam Neck exam: Positive for: Normal Inspection - Respiratory Exam Respiratory Exam: Clear to Auscultation Bilateral, NORMAL BREATHING PATTERN - Cardiovascular Exam Cardiovascular Exam: Irregular Rhythm, +S1, +S2 - GI/Abdominal Exam GI & Abdominal Exam: Normal Bowel Sounds, Soft. absent: Tenderness - Extremities Exam Extremities exam: Positive for: full ROM, normal capillary refill, normal inspection, pedal pulses present - Back Exam Back exam: NORMAL INSPECTION - Neurological Exam Neurological exam: Alert, CN II-XII Intact, Normal Gait, Oriented x3, Reflexes Normal - Psychiatric Exam Psychiatric exam: Normal Affect, Normal Mood - Skin Skin Exam: Dry, Intact, Normal Color, Warm Results - Vital Signs Recent Vital Signs: Last Vital Signs Temp 97.7 F 11/19/16 20:45 Pulse 90 11/19/16 23:00 Resp 20 11/19/16 23:00 BP 114/63 11/19/16 20:45 Pulse Ox 98 11/19/16 23:00 - Labs Result Diagrams: 11/20/16 06:00 11/20/16 06:00 Labs: Laboratory Results - last 24 hr 11/19/16 11/20/16 11/20/16 21:43 06:00 06:15 WBC 8.9 RBC 4.81 Hgb 14.8 Hct 44.3 MCV 92.1 MCH 30.8 MCHC 33.4 RDW 15.9 H Plt Count 220 MPV 9.2 Neut % (Auto) 63.9 Lymph % (Auto) 22.7 [place] % (Auto) 7.0 Eos % (Auto) 5.7 H Baso % (Auto) 0.7 Neut # 5.7 Lymph # 2.0 [place] # 0.6 Eos # 0.5 Baso # 0.1 Sodium 138 Potassium 3.9 Chloride 103 Carbon Dioxide 23 Anion Gap 16 BUN 13 Creatinine 0.8 Est GFR ( Amer) > 60 Est GFR (Non-Af Amer) > 60 POC Glucose (mg/dL) 88 144 H Random Glucose 161 H Calcium 9.4 Total Bilirubin 0.8 AST 41 ALT 45 Alkaline Phosphatase 78 Total Protein 6.5 Albumin 3.3 L Globulin 3.2 Albumin/Globulin Ratio 1.0 Assessment & Plan (1) CVA (cerebral vascular accident) Assessment and Plan: neuro st/pt/ot dr mendez asa x2 wks until back on eliquis per dr abreu Status: Acute Priority: High (2) Chronic atrial fibrillation Assessment and Plan: asa x 2 wk then eliquis rate control cardio Status: Acute (3) DVT prophylaxis Assessment and Plan: scd nad ae hose ambualtion eliquis in 2 wks Status: Acute (4) Diabetes type 2, uncontrolled Assessment and Plan: riss home meds, fsbg diet control Status: Acute (5) HTN (hypertension) Assessment and Plan: nacl lisinopril close monitor and tight control Status: Acute (6) Intracerebral hematoma Assessment and Plan: hold eliquis x 2wks Status: Acute Decision To Admit - Pt Status Changed To: Hospital Disposition Of: Inpatient - Admit Certification Admit to Inpatient:: After my assessment, the patient will require hospitalization for at least two midnights. This is because of the severity of symptoms shown, intensity of services needed, and/or the medical risk in this patient being treated as an outpatient. - . Bed Request Type: Acute Rehab Admitting Physician: Charity Bird
[2016-11-20] MEDS: Pantoprazole 20 mg EC Tab PO SCH (09:46)
--- NOTE | 2016-11-20 10:45 | CP.PCM.CON ---
History of Present Illness - History of Present Illness History of Present Illness: Dr Albert PMR consultation on Iván Kim, born 1930 who has been admitted to [facility] for acute inpatient rehabilitation following a right CVA with hemorrhagic extension with left HP. He has good initial return of strength. Review of Systems - Constitutional Constitutional: absent: Anorexia, Chills - EENT Eyes: absent: Discharge, Irritation, Itchy Eyes Nose/Mouth/Throat: absent: Nasal Congestion - Cardiovascular Cardiovascular: absent: Chest Pain - Respiratory Respiratory: absent: Dyspnea, Hemoptysis, Pain on Inspiration - Gastrointestinal Gastrointestinal: absent: Abdominal Pain, Constipation, Diarrhea, Dyspepsia - Musculoskeletal Musculoskeletal: absent: Arthralgias, Back Pain - Integumentary Integumentary: absent: Bleeding Lesions - Neurological Neurological: absent: Abnormal Movements, Dizziness - Psychiatric Psychiatric: absent: Anxiety Past Patient History - Past Medical History & Family History Past Medical History?: Yes - Past Social History Smoking Status: Former Smoker Chewing Tobacco Use: No Cigar Use: No Alcohol: None Drugs: Denies Home Situation {Lives}: With Family (4 steps) - CARDIAC Hx Cardiac Disorders: Yes Hx Atrial Fibrillation: Yes (Previously on Xarelto) Hx Hypertension: Yes - PULMONARY Hx Respiratory Disorders: No - NEUROLOGICAL HX Cerebrovascular Accident: Yes (2006 & 2015) Hx Transient Ischemic Attacks (TIA): Yes - HEENT Hx Macular Degeneration: Yes (Right eye) Other/Comment: - 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 - RENAL Hx Chronic Kidney Disease: No - ENDOCRINE/METABOLIC Hx Diabetes Mellitus Type 2: Yes - HEMATOLOGICAL/ONCOLOGICAL Hx AIDS: No Hx Human Immunodeficiency Virus (HIV): No - INTEGUMENTARY Hx Dermatological Problems: No - MUSCULOSKELETAL/RHEUMATOLOGICAL Hx Falls: No - GASTROINTESTINAL Hx Gastrointestinal Disorders: No - GENITOURINARY/GYNECOLOGICAL Hx Genitourinary Disorders: No - PSYCHIATRIC Hx Substance Use: No - SURGICAL HISTORY Hx Cholecystectomy: Yes (July 2000) - ANESTHESIA Hx Anesthesia: Yes Hx Anesthesia Reactions: No Hx Malignant Hyperthermia: No Has any member of the family had a problem w/ anesthesia?: No Meds Allergies/Adverse Reactions: Allergies Allergy/AdvReac Type Severity Reaction Status Date / Time No Known Allergies Allergy Verified 11/19/16 20:44 - Medications Medications: Current Medications Aspirin (Aspirin Chewable) 81 mg PO DAILY [facility] Bisoprolol Fumarate (Zebeta) 5 mg PO DAILY [facility] Last Admin: 11/20/16 09:47 Dose: Not Given Docusate Sodium (Colace) 100 mg PO BID [facility] Last Admin: 11/20/16 09:46 Dose: 100 mg Glipizide (Glucotrol Xl) 2.5 mg PO BRK [facility] Last Admin: 11/20/16 08:30 Dose: 2.5 mg Insulin Human Regular (Humulin R) 0 units SC ACHS [facility] PRN Reason: Protocol Last Admin: 11/20/16 06:30 Dose: Not Given Lisinopril (Zestril) 10 mg PO HS [facility] Nateglinide (Starlix) 120 mg PO BID [facility] Last Admin: 11/20/16 09:47 Dose: 120 mg Pantoprazole Sodium (Protonix Ec Tab) 20 mg PO DAILY [facility] Last Admin: 11/20/16 09:46 Dose: 20 mg Sodium Chloride (Sodium Chloride Tab) 1 gm PO DAILY [facility] Physical Exam - Constitutional Appears: Non-toxic, No Acute Distress - Head Exam Head Exam: ATRAUMATIC, NORMAL INSPECTION, NORMOCEPHALIC - Eye Exam Eye Exam: EOMI - ENT Exam ENT Exam: Mucous Membranes Moist - Respiratory Exam Respiratory Exam: NORMAL BREATHING PATTERN - Cardiovascular Exam Cardiovascular Exam: REGULAR RHYTHM - GI/Abdominal Exam GI & Abdominal Exam: Normal Bowel Sounds. absent: Distended - Extremities Exam Extremities exam: Negative for: calf tenderness, pedal edema, tenderness - Neurological Exam Neurological exam: Alert, CN II-XII Intact, Oriented x3 - Psychiatric Exam Psychiatric exam: Flat Affect - Skin Skin Exam: Dry Results - Vital Signs Recent Vital Signs: Last Vital Signs Temp 97.6 F 11/20/16 10:00 Pulse 75 11/20/16 10:00 Resp 20 11/20/16 10:00 BP 98/57 L 11/20/16 10:00 Pulse Ox 97 11/20/16 10:00 - Labs Result Diagrams: 11/20/16 06:00 11/20/16 06:00 Labs: Laboratory Results - last 24 hr 11/19/16 11/20/16 11/20/16 21:43 06:00 06:15 WBC 8.9 RBC 4.81 Hgb 14.8 Hct 44.3 MCV 92.1 MCH 30.8 MCHC 33.4 RDW 15.9 H Plt Count 220 MPV 9.2 Neut % (Auto) 63.9 Lymph % (Auto) 22.7 [place] % (Auto) 7.0 Eos % (Auto) 5.7 H Baso % (Auto) 0.7 Neut # 5.7 Lymph # 2.0 [place] # 0.6 Eos # 0.5 Baso # 0.1 Sodium 138 Potassium 3.9 Chloride 103 Carbon Dioxide 23 Anion Gap 16 BUN 13 Creatinine 0.8 Est GFR ( Amer) > 60 Est GFR (Non-Af Amer) > 60 POC Glucose (mg/dL) 88 144 H Random Glucose 161 H Calcium 9.4 Total Bilirubin 0.8 AST 41 ALT 45 Alkaline Phosphatase 78 Total Protein 6.5 Albumin 3.3 L Globulin 3.2 Albumin/Globulin Ratio 1.0 Assessment & Plan - Assessment and Plan (Free Text) Assessment: 86 year old right hand dominant male with right CVA with left HP 4/5 grossly in the left UE and LE no pain with ROM independent in care and function [employer] supportive family PT/OT to continue to help increase functional independence Team conference for d/c planning Pain: controlled Vascular: no evidence of DVT GI: No evidence of constipation or diarrhea Patient is an excellent acute rehabilitation candidate and will have focused PT , OT and recreational therapy to help facilitate a safe and appropriate d/c plan impairment code 01.1
--- NOTE | 2016-11-20 10:48 | CP.PCM.PN ---
Subjective - Date & Time of Evaluation Date of Evaluation: 11/20/16 Time of Evaluation: 10:47 - Subjective Subjective: right cva left HP Objective - Vital Signs/Intake and Output Vital Signs (last 24 hours): Temp Pulse Resp BP Pulse Ox 97.6 F 75 20 98/57 L 97 11/20/16 10:00 11/20/16 10:00 11/20/16 10:00 11/20/16 10:00 11/20/16 10:00 - Medications Medications: Current Medications Aspirin (Aspirin Chewable) 81 mg PO DAILY [facility] Bisoprolol Fumarate (Zebeta) 5 mg PO DAILY [facility] Last Admin: 11/20/16 09:47 Dose: Not Given Docusate Sodium (Colace) 100 mg PO BID [facility] Last Admin: 11/20/16 09:46 Dose: 100 mg Glipizide (Glucotrol Xl) 2.5 mg PO BRK [facility] Last Admin: 11/20/16 08:30 Dose: 2.5 mg Insulin Human Regular (Humulin R) 0 units SC ACHS [facility] PRN Reason: Protocol Last Admin: 11/20/16 06:30 Dose: Not Given Lisinopril (Zestril) 10 mg PO HS [facility] Nateglinide (Starlix) 120 mg PO BID [facility] Last Admin: 11/20/16 09:47 Dose: 120 mg Pantoprazole Sodium (Protonix Ec Tab) 20 mg PO DAILY [facility] Last Admin: 11/20/16 09:46 Dose: 20 mg Sodium Chloride (Sodium Chloride Tab) 1 gm PO DAILY [facility] - Labs Labs: 11/20/16 06:00 11/20/16 06:00 Physiatry Overall Plan of Care - Overall Plan of Care Estimated Length of Stay in Weeks: 3 Rehab Impairment: Mobility, Gait, Balance, Coordination Etiologic Diagnosis: Cerebrovascular Accident Rehab/Medical Prognosis: Good - Anticipated Interventions Physical Therapy:: Yes Occupational Therapy:: Yes Recreational Therapy:: Yes - Therapy Goals Bed Mobility: Supervision Ambulation: Supervision Functional Positional Changes:: Supervision - Discharge Plan Discharge Destination: Home
--- NOTE | 2016-11-20 11:11 | CP.PCM.CON ---
History of Present Illness - History of Present Illness History of Present Illness: Mr. Kim is an 86-year-old man with a past medical history of recent acute ischemic stroke with hemorrhagic transformation, chronic multifocal ischemic strokes, atrial fibrillation, hypertension and diabetes who was transferred to acute rehab for functional deficits. I had initially seen the patient when he presented with new left side weakness. The time of onset was uncertain and he had a previous ischemic stroke in the right MCA territory. He was improving from an NIHSS of 8 to NIHSSof 4. He was not a good candidate for IV tPA. He continued to show improvement and was started on Eliquis 5 mg BID about 48 hours after his initial presentation. He received one dose and had an MRI of the brain performed after as a routine scheduled test. The MRI showed hemorrhagic transformation of one segment of the acute to subacute infarct in the anterior right frontal lobe. There was no significant mass effect or midline shift at the time. Therefor the patient was not reversed and it was unlikely that the one dose of Eliquis he received resulted in the bleed. The patient did not have any clinical decline, and in fact he continued to improve, but he was placed in the ICU for close observation and frequent neurologic examinations. After several follow-up CT scans continued to show stability, he was transferred to acute rehab. Today, when I saw the patient, he did not have any complaints. He was eating without assistance and denied any headache, nausea, new weakness, new sensory changes or visual changes. He continues to require significant assistance with ambulation. When I was in the room, the patient's nurse checked the blood pressure and it was low in the 80's systolic range. I recommended a bolus of 500 NS since he has not had significant PO intake of fluids recently. Review of Systems - Review of Systems All systems: reviewed and no additional remarkable complaints except - Constitutional Constitutional: As Per HPI - EENT Eyes: As Per HPI - Cardiovascular Cardiovascular: As Per HPI - Respiratory Respiratory: As Per HPI - Gastrointestinal Gastrointestinal: As Per HPI - Musculoskeletal Musculoskeletal: As Per HPI. absent: Abnormal Gait, Arthralgias, Atrophy, Back Pain, Deformity, Joint Swelling, Limited Range of Motion, Loss of Height, Muscle Cramps, Muscle Weakness, Myalgias, Neck Pain, Numbness, Radiating Pain into Limb, Stiffness, Tingling, Other - Integumentary Integumentary: absent: As Per HPI, Acne, Alopecia, Bleeding Lesions, Change in Hair, Change in Nails, Change in Pigmentation, Changing Lesions, Dry Skin, Erythema, Furuncle, Hirsutism, Lesions, New Lesions, Non-Healing Lesions, Photosensitivity, Pruritus, Rash, Skin Pain, Skin Ulcer, Sores, Striae, Swelling , Unusual Bruising, Wounds, Jaundice, Other - Neurological Neurological: As Per HPI - Psychiatric Psychiatric: As Per HPI Past Patient History - Past Medical History & Family History Past Medical History?: Yes - Past Social History Smoking Status: Former Smoker Chewing Tobacco Use: No Cigar Use: No Alcohol: None Drugs: Denies Home Situation {Lives}: With Family (4 steps) - CARDIAC Hx Cardiac Disorders: Yes Hx Atrial Fibrillation: Yes (Previously on Xarelto) Hx Hypertension: Yes - PULMONARY Hx Respiratory Disorders: No - NEUROLOGICAL HX Cerebrovascular Accident: Yes (2006 & 2015) Hx Transient Ischemic Attacks (TIA): Yes - HEENT Hx Macular Degeneration: Yes (Right eye) Other/Comment: - 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 - RENAL Hx Chronic Kidney Disease: No - ENDOCRINE/METABOLIC Hx Diabetes Mellitus Type 2: Yes - HEMATOLOGICAL/ONCOLOGICAL Hx AIDS: No Hx Human Immunodeficiency Virus (HIV): No - INTEGUMENTARY Hx Dermatological Problems: No - MUSCULOSKELETAL/RHEUMATOLOGICAL Hx Falls: No - GASTROINTESTINAL Hx Gastrointestinal Disorders: No - GENITOURINARY/GYNECOLOGICAL Hx Genitourinary Disorders: No - PSYCHIATRIC Hx Substance Use: No - SURGICAL HISTORY Hx Cholecystectomy: Yes (July 2000) - ANESTHESIA Hx Anesthesia: Yes Hx Anesthesia Reactions: No Hx Malignant Hyperthermia: No Has any member of the family had a problem w/ anesthesia?: No Meds Allergies/Adverse Reactions: Allergies Allergy/AdvReac Type Severity Reaction Status Date / Time No Known Allergies Allergy Verified 11/19/16 20:44 - Medications Medications: Current Medications Aspirin (Aspirin Chewable) 81 mg PO DAILY [facility] Bisoprolol Fumarate (Zebeta) 5 mg PO DAILY [facility] Last Admin: 11/20/16 09:47 Dose: Not Given Docusate Sodium (Colace) 100 mg PO BID [facility] Last Admin: 11/20/16 09:46 Dose: 100 mg Glipizide (Glucotrol Xl) 2.5 mg PO BRK [facility] Last Admin: 11/20/16 08:30 Dose: 2.5 mg Insulin Human Regular (Humulin R) 0 units SC [facility] PRN Reason: Protocol Last Admin: 11/20/16 06:30 Dose: Not Given Lisinopril (Zestril) 10 mg PO HS [facility] Nateglinide (Starlix) 120 mg PO BID [facility] Last Admin: 11/20/16 09:47 Dose: 120 mg Pantoprazole Sodium (Protonix Ec Tab) 20 mg PO DAILY [facility] Last Admin: 11/20/16 09:46 Dose: 20 mg Sodium Chloride (Sodium Chloride Tab) 1 gm PO DAILY [facility] Physical Exam - Constitutional Appears: Well - Head Exam Head Exam: ATRAUMATIC, NORMAL INSPECTION, NORMOCEPHALIC - Eye Exam Eye Exam: EOMI, Normal appearance, PERRL - Neck Exam Neck exam: Positive for: Normal Inspection - Respiratory Exam Respiratory Exam: Clear to Auscultation Bilateral, NORMAL BREATHING PATTERN - Cardiovascular Exam Cardiovascular Exam: Irregular Rhythm, +S1, +S2 - Neurological Exam Neurological exam: Alert, CN II-XII Intact, Oriented x3 Additional comments: NIHSS = 3 - Expanded Neurological Exam Expanded Neurological exam: Inattentive Patient oriented to: person, place, time Speech: Slurred Speech Cranial nerves: Facial Palsey w/Forehead Movement: Abnormal Left, Facial Sensation: Abnormal Left, Gag Reflex: Normal, Tongue Deviation: Normal Cerebellar Function: Finger to Nose: Abnormal Left, Heel to Brock: Abnormal Left Upper motor neuron: Babinski Sign: Abnormal Left, Pronator Drift: Abnormal Left Sensory exam: Lower Extremity Light Touch: Normal, Lower Extremity Pin Prick: Normal Neuro motor strength exam: Left Upper Extremity: 4, Right Upper Extremity: 5, Left Lower Extremity: 4, Right Lower Extremity: 5 DTR: Achilles Tendon Left: 3+, Achilles Tendon Right: 2+, Bicep Left: 3+, Bicep Right: 2+, Patellar Left: 3+, Patellar Right: 2+, Tricep Left: 3+, Tricep Right : 2+ Results - Vital Signs Recent Vital Signs: Last Vital Signs Temp 97.6 F 11/20/16 10:00 Pulse 75 11/20/16 10:00 Resp 20 11/20/16 10:00 BP 98/57 L 11/20/16 10:00 Pulse Ox 97 11/20/16 10:00 - Labs Result Diagrams: 11/20/16 06:00 11/20/16 06:00 Labs: Laboratory Results - last 24 hr 11/19/16 11/20/16 11/20/16 21:43 06:00 06:15 WBC 8.9 RBC 4.81 Hgb 14.8 Hct 44.3 MCV 92.1 MCH 30.8 MCHC 33.4 RDW 15.9 H Plt Count 220 MPV 9.2 Neut % (Auto) 63.9 Lymph % (Auto) 22.7 Tama % (Auto) 7.0 Eos % (Auto) 5.7 H Baso % (Auto) 0.7 Neut # 5.7 Lymph # 2.0 Tama # 0.6 Eos # 0.5 Baso # 0.1 Sodium 138 Potassium 3.9 Chloride 103 Carbon Dioxide 23 Anion Gap 16 BUN 13 Creatinine 0.8 Est GFR ( Amer) > 60 Est GFR (Non-Af Amer) > 60 POC Glucose (mg/dL) 88 144 H Random Glucose 161 H Calcium 9.4 Total Bilirubin 0.8 AST 41 ALT 45 Alkaline Phosphatase 78 Total Protein 6.5 Albumin 3.3 L Globulin 3.2 Albumin/Globulin Ratio 1.0 Assessment & Plan (1) CVA (cerebral vascular accident) Assessment and Plan: Clinically improving after acute infarct with hemorrhagic transformation. Continue PO intake and supplement with IV fluids if needed. Calorie count and fluid intake should be measured. Continue monitoring and maintaining normoglycemia, normal sodium levels and normal blood pressure parameters. Hold antihypertensive agents for SBP <120/80 mmHg. Continue aspirin [address] repeat [address] head [address] head for follow-up. If the patient has change in mental status, complains of severe headache, or has changes in his pupils, a STAT CT scan of the head should be obtained and neurology should be called immediately. Thank you for this consultation. I will follow this patients progress along with the primary team. Status: Acute Priority: High
--- NOTE | 2016-11-20 11:12 | CP.PCM.CON ---
History of Present Illness - History of Present Illness History of Present Illness: I was asked to evaluate patient by Dr. Bird. Patient is a 86 year old male with a history of chronic atrial fibrillation who presents for rehab. The patient has admitted to initally with atrial fibrillation with RVR. He suffered a CVA. He was not on anticoagulation at the time. The patient was found to have CVA. There was a plan to start Eliquis however patient had evidence of intracranial hemorrhage. The patient is currently on the rehab floor. He is more awake and alert. Review of Systems - Constitutional Constitutional: absent: As Per HPI, Anorexia, Chills, Daytime Sleepiness, Excessive Sweating, Fatigue, Fever, Frequent Falls, Headache, Increased Appetite , Lethargy, Malaise, Night Sweats, Snoring, Sleep Apnea, Weight Gain, Weight Loss, Weakness, Other - EENT Eyes: absent: As Per HPI, Blind Spots, Blurred Vision, Change in Vision, Decreased Night Vision, Diplopia, Discharge, Dry Eye, Exophthalmos, Floaters, Irritation, Itchy Eyes, Loss of Peripheral Vision, Pain, Photophobia, Requires Corrective Lenses, Sees Flashes, Spots in Vision, Tunnel Vision, Other Visual Disturbances, Loss of Vision, Other Ears: absent: As Per HPI, Decreased Hearing, Ear Discharge, Ear Pain, Tinnitus, Abnormal Hearing, Disequilibrium, Dizziness, Other Nose/Mouth/Throat: absent: As Per HPI, Epistaxis, Nasal Congestion, Nasal Discharge, Nasal Obstruction, Nasal Trauma, Nose Pain, Post Nasal Drip, Sinus Pain, Sinus Pressure, Bleeding Gums, Change in Voice, Dental Pain, Dry Mouth, Dysphagia, Halitosis, Hoarsness, Lip Swelling, Mouth Lesions, Mouth Pain, Odynophagia, Sore Throat, Throat Swelling, Tongue Swelling, Facial Pain, Neck Pain, Neck Mass, Other - Cardiovascular Cardiovascular: absent: As Per HPI, Acrocyanosis, Chest Pain, Chest Pain at Rest , Chest Pain with Activity, Claudication, Diaphoresis, Dyspnea, Dyspnea on Exertion, Edema, Irregular Heart Rhythm, Pain Radiating to Arm/Neck/Jaw, Leg Edema, Leg Ulcers, Lightheadedness, Orthopnea, Palpitations, Paroxysmal Nocturnal Dyspnea, Pedal Edema, Radiating Pain, Rapid Heart Rate, Slow Heart Rate, Syncope, Other - Respiratory Respiratory: absent: As Per HPI, Cough, Dyspnea, Hemoptysis, Dyspnea on Exertion , Wheezing, Snoring, Stridor, Pain on Inspiration, Chest Congestion, Excessive Mucous Production, Change in Mucous Color, Pain with Coughing, Other - Genitourinary Genitourinary: absent: As Per HPI, Change in Urinary Stream, Difficulty Urinating, Dysuria, Flank Pain, Hematuria, Pyuria, Nocturia, Urinary Incontinence, Urinary Frequency, Urinary Hesitance, Urinary Urgency, Voiding Freq/Small Amts, Freq UTI, Hx Renal/Bladder Calculi, Hx /Renal Surgery, Bladder Distension, Other - Musculoskeletal Musculoskeletal: absent: As Per HPI, Abnormal Gait, Arthralgias, Atrophy, Back Pain, Deformity, Joint Swelling, Limited Range of Motion, Loss of Height, Muscle Cramps, Muscle Weakness, Myalgias, Neck Pain, Numbness, Radiating Pain into Limb, Stiffness, Tingling, Other - Integumentary Integumentary: absent: As Per HPI, Acne, Alopecia, Bleeding Lesions, Change in Hair, Change in Nails, Change in Pigmentation, Changing Lesions, Dry Skin, Erythema, Furuncle, Hirsutism, Lesions, New Lesions, Non-Healing Lesions, Photosensitivity, Pruritus, Rash, Skin Pain, Skin Ulcer, Sores, Striae, Swelling , Unusual Bruising, Wounds, Jaundice, Other - Neurological Neurological: absent: As Per HPI, Abnormal Gait, Abnormal Hearing, Abnormal Movements, Abnormal Speech, Behavioral Changes, Burning Sensations, Confusion, Convulsions, Disequilibrium, Dizziness, Numbness, Focal Weakness, Frequent Falls , Headaches, Lack of Coordination, Loss of Vision, Memory Loss, Paresthesias, Radicular Pain, Restless Legs, Sensory Deficit, Syncope, Tingling, Tremor, Vertigo, Weakness, Other Visual Disturbances, Other - Psychiatric Psychiatric: absent: As Per HPI, Abnormal Sleep Pattern, Anhedonia, Anxiety, Auditory Hallucinations, Behavioral Changes, Change in Appetite, Change in Libido, Confusion, Depression, Difficulty Concentrating, Hallucinations, Homicidal Ideation, Hopelessness, Irritability, Memory Loss, Mood Swings, Panic Attacks, Paranoia, Suicidal Ideation, Visual Hallucinations, Tactile Hallucinations, Other - Endocrine Endocrine: absent: As Per HPI, Change in Body Appearance, Change in Libido, Cold Intolorance, Deepening of Voice, Excessive Sweating, Fatigue, Flushing, Heat Intolorance, Increase in Ring/Shoe/Hat Size, Palpitations, Polydipsia, Polyphagia, Polyuria, Other - Hematologic/Lymphatic Hematologic: absent: As Per HPI, Easy Bleeding, Easy Bruising, Lymphadenopathy, Other Past Patient History - Past Medical History & Family History Past Medical History?: Yes - Past Social History Smoking Status: Former Smoker Chewing Tobacco Use: No Cigar Use: No Alcohol: None Drugs: Denies Home Situation {Lives}: With Family (4 steps) - CARDIAC Hx Cardiac Disorders: Yes Hx Atrial Fibrillation: Yes (Previously on Xarelto) Hx Hypertension: Yes - PULMONARY Hx Respiratory Disorders: No - NEUROLOGICAL HX Cerebrovascular Accident: Yes (2006 & 2015) Hx Transient Ischemic Attacks (TIA): Yes - HEENT Hx Macular Degeneration: Yes (Right eye) Other/Comment: - 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 - RENAL Hx Chronic Kidney Disease: No - ENDOCRINE/METABOLIC Hx Diabetes Mellitus Type 2: Yes - HEMATOLOGICAL/ONCOLOGICAL Hx AIDS: No Hx Human Immunodeficiency Virus (HIV): No - INTEGUMENTARY Hx Dermatological Problems: No - MUSCULOSKELETAL/RHEUMATOLOGICAL Hx Falls: No - GASTROINTESTINAL Hx Gastrointestinal Disorders: No - GENITOURINARY/GYNECOLOGICAL Hx Genitourinary Disorders: No - PSYCHIATRIC Hx Substance Use: No - SURGICAL HISTORY Hx Cholecystectomy: Yes (July 2000) - ANESTHESIA Hx Anesthesia: Yes Hx Anesthesia Reactions: No Hx Malignant Hyperthermia: No Has any member of the family had a problem w/ anesthesia?: No Meds Allergies/Adverse Reactions: Allergies Allergy/AdvReac Type Severity Reaction Status Date / Time No Known Allergies Allergy Verified 11/19/16 20:44 - Medications Medications: Current Medications Aspirin (Aspirin Chewable) 81 mg PO DAILY [facility] Bisoprolol Fumarate (Zebeta) 5 mg PO DAILY [facility] Last Admin: 11/20/16 09:47 Dose: Not Given Docusate Sodium (Colace) 100 mg PO BID [facility] Last Admin: 11/20/16 09:46 Dose: 100 mg Glipizide (Glucotrol Xl) 2.5 mg PO BRK [facility] Last Admin: 11/20/16 08:30 Dose: 2.5 mg Insulin Human Regular (Humulin R) 0 units SC ACHS [facility] PRN Reason: Protocol Last Admin: 11/20/16 06:30 Dose: Not Given Lisinopril (Zestril) 10 mg PO [facility] Nateglinide (Starlix) 120 mg PO BID [facility] Last Admin: 11/20/16 09:47 Dose: 120 mg Pantoprazole Sodium (Protonix Ec Tab) 20 mg PO DAILY [facility] Last Admin: 11/20/16 09:46 Dose: 20 mg Sodium Chloride (Sodium Chloride Tab) 1 gm PO DAILY [facility] Physical Exam - Constitutional Appears: Non-toxic - Head Exam Head Exam: NORMAL INSPECTION - Eye Exam Eye Exam: Normal appearance - ENT Exam ENT Exam: Mucous Membranes Moist - Neck Exam Neck exam: Positive for: Full Rom - Respiratory Exam Respiratory Exam: Decreased Breath Sounds - Cardiovascular Exam Cardiovascular Exam: Irregular Rhythm - GI/Abdominal Exam GI & Abdominal Exam: Normal Bowel Sounds - Rectal Exam Rectal Exam: Deferred - Extremities Exam Extremities exam: Negative for: pedal edema - Back Exam Back exam: NORMAL INSPECTION - Neurological Exam Neurological exam: Alert, Oriented x3 - Psychiatric Exam Psychiatric exam: Normal Affect - Skin Skin Exam: Normal Color Results - Vital Signs Recent Vital Signs: Last Vital Signs Temp 97.6 F 11/20/16 10:00 Pulse 75 11/20/16 10:00 Resp 20 11/20/16 10:00 BP 98/57 L 11/20/16 10:00 Pulse Ox 97 11/20/16 10:00 - Labs Result Diagrams: 11/20/16 06:00 11/20/16 06:00 Labs: Laboratory Results - last 24 hr 11/19/16 11/20/16 11/20/16 21:43 06:00 06:15 WBC 8.9 RBC 4.81 Hgb 14.8 Hct 44.3 MCV 92.1 MCH 30.8 MCHC 33.4 RDW 15.9 H Plt Count 220 MPV 9.2 Neut % (Auto) 63.9 Lymph % (Auto) 22.7 Norman % (Auto) 7.0 Eos % (Auto) 5.7 H Baso % (Auto) 0.7 Neut # 5.7 Lymph # 2.0 Norman # 0.6 Eos # 0.5 Baso # 0.1 Sodium 138 Potassium 3.9 Chloride 103 Carbon Dioxide 23 Anion Gap 16 BUN 13 Creatinine 0.8 Est GFR ( Amer) > 60 Est GFR (Non-Af Amer) > 60 POC Glucose (mg/dL) 88 144 H Random Glucose 161 H Calcium 9.4 Total Bilirubin 0.8 AST 41 ALT 45 Alkaline Phosphatase 78 Total Protein 6.5 Albumin 3.3 L Globulin 3.2 Albumin/Globulin Ratio 1.0 Assessment & Plan - Assessment and Plan (Free Text) Assessment: chronic atrial fibrillation will continue medical therapy. witholding anticaogulation due to intracranial hemorrhage. HTN on beta mona. blood pressure is controlled CVA neuro following Non insulin dependent diabetes mellitus blood sugar control
[2016-11-20] MEDS ORDERED: Artificial Tears Opht Soln OU PRN (13:27)
[2016-11-21] MEDS: Insulin Regular 100 units/ml SC SCH ×4 (08:10→21:09)
[2016-11-21] MEDS: GlipiZIDE 2.5 mg SR Tab PO SCH (08:26)
[2016-11-21] MEDS: Pantoprazole 20 mg EC Tab PO SCH (08:27)
[2016-11-21] MEDS ORDERED: Barium Sulfate Susp 0.1% w/v, 0.1% w/w 450 mL Bottle PO ONE (13:36)
--- NOTE | 2016-11-21 15:33 | RAD ---
PROCEDURE: Modified barium swallow study. HISTORY: dysphagia COMPARISON: None available. TECHNIQUE: Under fluoroscopic guidance, barium meals of various consistency were administered to the patient by the speech pathologist. FINDINGS: No penetration or aspiration was observed during this study. IMPRESSION: No penetration or aspiration observed. Please refer to the detailed report and recommendations of the speech pathologist.
--- NOTE | 2016-11-21 16:23 | CP.PCM.PN ---
Subjective - Date & Time of Evaluation Date of Evaluation: 11/21/16 Time of Evaluation: 08:00 - Subjective Subjective: Mr. Kim was seen and examined today at bedside in acute rehab. He was pleasant and conversant and denied headache, nausea, visual changes, new weakness or any new sensory changes. There were no acute events overnight. Objective - Vital Signs/Intake and Output Vital Signs (last 24 hours): Temp Pulse Resp BP Pulse Ox 97.5 F L 62 20 106/46 L 98 11/21/16 09:43 11/21/16 11:28 11/21/16 09:43 11/21/16 11:28 11/20/16 21:15 - Medications Medications: Current Medications Artificial Tears (Artificial Tears) 2 drop OU BID PRN PRN Reason: Dry eyes Last Admin: 11/20/16 14:07 Dose: 2 drop Aspirin (Aspirin Chewable) 81 mg PO DAILY [facility] Last Admin: 11/21/16 08:28 Dose: 81 mg Bisoprolol Fumarate (Zebeta) 5 mg PO DAILY [facility] Last Admin: 11/21/16 08:28 Dose: Not Given Docusate Sodium (Colace) 100 mg PO BID [facility] Last Admin: 11/21/16 08:26 Dose: 100 mg Glipizide (Glucotrol Xl) 2.5 mg PO BRK [facility] Last Admin: 11/21/16 08:26 Dose: 2.5 mg Home Med (Quinapril Hcl [Quinapril Hcl]) 10 mg PO HS [facility] Insulin Human Regular (Humulin R) 0 units SC ACHS [facility] PRN Reason: Protocol Last Admin: 11/21/16 12:25 Dose: 2 unit Nateglinide (Starlix) 120 mg PO BID [facility] Last Admin: 11/21/16 08:26 Dose: 120 mg Pantoprazole Sodium (Protonix Ec Tab) 20 mg PO DAILY [facility] Last Admin: 11/21/16 08:27 Dose: 20 mg Sodium Chloride (Sodium Chloride Tab) 1 gm PO DAILY [facility] Last Admin: 11/21/16 08:27 Dose: 1 gm - Labs Labs: 11/20/16 06:00 11/20/16 06:00 - Constitutional Appears: Well - Head Exam Head Exam: ATRAUMATIC, NORMAL INSPECTION, NORMOCEPHALIC - Eye Exam Eye Exam: EOMI, Normal appearance, PERRL - Cardiovascular Exam Cardiovascular Exam: REGULAR RHYTHM, +S1, +S2. absent: Murmur - Neurological Exam Neurological Exam: Alert, Awake, CN II-XII Intact, Normal Gait, Oriented x3 Neuro motor strength exam: Left Upper Extremity: 4, Right Upper Extremity: 5, Left Lower Extremity: 4, Right Lower Extremity: 5 Additional comments: NIHSS = 2 Assessment and Plan (1) CVA (cerebral vascular accident) Assessment & Plan: Continue acute rehab care and monitor glucose and vital signs closely. Continue current medications and management plan. CT head can be obtained one week after the last scan (11/26/2016), for follow-up. Status: Acute
[2016-11-21] MEDS ORDERED: QUINAPRIL HCL 10 MG PO SCH (22:00)
[2016-11-22] MEDS: Insulin Regular 100 units/ml SC SCH ×4 (06:34→21:39)
--- NOTE | 2016-11-22 07:38 | CP.PCM.PN ---
Subjective - Date & Time of Evaluation Date of Evaluation: 11/22/16 Time of Evaluation: 07:38 - Subjective Subjective: doign well, still w/ unsteady gait. imprivng strength to lue. still sleeping poorly and confused per granddaughter. participating in pt/ot/st. all consult notes appriciated. Objective - Vital Signs/Intake and Output Vital Signs (last 24 hours): Temp Pulse Resp BP Pulse Ox 97.3 F L 73 20 124/71 97 11/21/16 21:59 11/21/16 21:59 11/21/16 21:59 11/21/16 21:59 11/21/16 21:59 - Medications Medications: Current Medications Artificial Tears (Artificial Tears) 2 drop OU BID PRN PRN Reason: Dry eyes Last Admin: 11/20/16 14:07 Dose: 2 drop Aspirin (Aspirin Chewable) 81 mg PO DAILY [facility] Last Admin: 11/21/16 08:28 Dose: 81 mg Bisoprolol Fumarate (Zebeta) 5 mg PO DAILY [facility] Last Admin: 11/21/16 08:28 Dose: Not Given Docusate Sodium (Colace) 100 mg PO BID [facility] Last Admin: 11/21/16 17:03 Dose: 100 mg Glipizide (Glucotrol Xl) 2.5 mg PO BRK [facility] Last Admin: 11/21/16 08:26 Dose: 2.5 mg Home Med (Quinapril Hcl [Quinapril Hcl]) 10 mg PO HS [facility] Last Admin: 11/21/16 21:34 Dose: 10 mg Insulin Human Regular (Humulin R) 0 units SC [facility] PRN Reason: Protocol Last Admin: 11/22/16 06:34 Dose: 1 unit Nateglinide (Starlix) 120 mg PO BID [facility] Last Admin: 11/21/16 17:03 Dose: 120 mg Pantoprazole Sodium (Protonix Ec Tab) 20 mg PO DAILY [facility] Last Admin: 11/21/16 08:27 Dose: 20 mg Sodium Chloride (Sodium Chloride Tab) 1 gm PO DAILY [facility] Last Admin: 11/21/16 08:27 Dose: 1 gm - Labs Labs: 11/20/16 06:00 11/20/16 06:00 - Constitutional Appears: Well, Non-toxic, No Acute Distress - Head Exam Head Exam: ATRAUMATIC, NORMAL INSPECTION, NORMOCEPHALIC - Eye Exam Eye Exam: EOMI, Normal appearance, PERRL Pupil Exam: NORMAL ACCOMODATION, PERRL - ENT Exam ENT Exam: Mucous Membranes Moist, Normal Exam - Neck Exam Neck Exam: Full ROM, Normal Inspection. absent: Lymphadenopathy - Respiratory Exam Respiratory Exam: Clear to Ausculation Bilateral, NORMAL BREATHING PATTERN - Cardiovascular Exam Cardiovascular Exam: Irregular Rhythm, +S1, +S2. absent: Murmur - GI/Abdominal Exam GI & Abdominal Exam: Soft, Normal Bowel Sounds. absent: Tenderness - Extremities Exam Extremities Exam: Full ROM, Normal Capillary Refill, Normal Inspection. absent : Joint Swelling, Pedal Edema - Back Exam Back Exam: NORMAL INSPECTION - Neurological Exam Neurological Exam: Abnormal Gait, Alert, Awake, CN II-XII Intact Neuro motor strength exam: Left Upper Extremity: 4, Right Upper Extremity: 5, Left Lower Extremity: 5, Right Lower Extremity: 5 - Psychiatric Exam Psychiatric exam: Normal Affect, Normal Mood - Skin Skin Exam: Dry, Intact, Normal Color, Warm Assessment and Plan (1) CVA (cerebral vascular accident) Status: Acute (2) Chronic atrial fibrillation Status: Acute (3) DVT prophylaxis Status: Acute (4) Diabetes type 2, uncontrolled Status: Acute (5) HTN (hypertension) Status: Acute (6) Intracerebral hematoma Status: Acute - Assessment and Plan (Free Text) Assessment: (1) CVA (cerebral vascular accident) Assessment and Plan: neuro st/pt/ot dr mendez asa x2 wks until back on eliquis per dr abreu Status: Acute Priority: High (2) Chronic atrial fibrillation Assessment and Plan: asa x 2 wk then eliquis rate control cardio Status: Acute (3) DVT prophylaxis Assessment and Plan: scd nad ae hose ambualtion eliquis in 2 wks Status: Acute (4) Diabetes type 2, uncontrolled Assessment and Plan: riss home meds, fsbg diet control Status: Acute (5) HTN (hypertension) Assessment and Plan: nacl lisinopril close monitor and tight control Status: Acute (6) Intracerebral hematoma Assessment and Plan: hold eliquis x 2wks Status: Acute
[2016-11-22] MEDS: GlipiZIDE 2.5 mg SR Tab PO SCH (09:00)
[2016-11-22] MEDS: Pantoprazole 20 mg EC Tab PO SCH (09:08)
[2016-11-22] MEDS ORDERED: Sodium Chloride 0.9% 500 ML IV ONE (11:25)
--- NOTE | 2016-11-22 13:09 | PSY.TMCNF ---
Nursing - Vital Signs Vital Signs (Last 8 hours): Vital Signs 11/22/16 11/22/16 11/22/16 08:07 09:00 13:06 Temperature 97.1 F L 97.1 F L Pulse Rate 82 82 81 Respiratory 20 20 Rate Blood Pressure 92/57 L 92/57 L 101/63 O2 Sat by Pulse 98 Oximetry Pain: 0 - Precautions: Precautions: Fall Prevention, Aspiration - Medications/Other Issues Comment: -complains of insomnia. -(+) episode of hypotension. Bolus IV NSS given x1 - Consults Comment: Dr. Albert, Dr. Marie, Dr. Moore - Toileting Toileting: Maximal Assistance - Bladder Management Bladder Pattern: Normal, Incontinent (continent during the day) Voiding Method: Urinal Bladder Management: Dependent Frequency of Accidents: x3 - Bowel Management Bowel Pattern: Normal Bowel Management: Supervision Frequency of Accidents: 0 - Transfers Transfers: Moderate Assistance - ADL's ADL's: Maximal Assistance - Patient/Family Teaching Comments: Care post CVA and safety precautions - Goals/Time Frame Comments: Per multidisciplinary care plan and goals Physical Therapy - Bed Mobility Bed Mobility: Minimal Assistance - Transfers Wheelchair to Mat: Moderate Assistance Sit to Stand: Minimal Assistance - Ambulation Level of Assistance: Verbal Cues, Minimal Assistance Distance (ft.): 100 Assistive Devices: Rolling Walker Comment: -L sided inattention when ambulating, cueing to avoid obstacles on L and to maintain L hand on RW. -Decreased step height/step length LLE. - Forward flexed posture - Stair Negotiation Stairs: Level of Assistance: Minimal Assistance Number of Stairs: 4 Handrails: Bilateral - Standing Balance Static Stand: Contact Guard Assist Dynamic Stand: Minimal Assistance - Pain Pain (assessed during therapy session): 0 - Insight/Carryover Insight/Carryover: Good - Patient/Family Education Comment: Pt education provided for increased safety awareness and proper techniques during functional mobility training - Assessment/Plan Assessment: Pt displays noted deficits in LLE strength, standing balance, and endurance s/p CVA wit hemorrhagic conversion. Pt requires min A for bed mobility , min/mod A for transfers, and min A for ambulating 100 ft with RW. L sided inattention noted during functional mobility skills. Pt is highly motivated to participate in therapy. Pt is excellent rehab candidate and will benefit from skilled PT to address deficits and maximize independnece with functional mobility skills. - Goals Timeframe: 3 weeks Goals: Bed mobility independent. Transfers mod I with AD. Ambulation 500 ft with AD mod I. Ascend/descend flight of stairs with B handrails mod I - Provider Therapist: Brandy BAILEY RN CRRN Occupational Therapy - Arousal/Attention/Orientation Patient Orientation: Person, Place, Time, Appropriate to Age, Appropriate to Situation - ADL/IADL Self Feeding: Set-up Help, Minimal Assistance Grooming: Set-up Help, Minimal Assistance Dressing-Upper Extremity: Moderate Assistance Dressing-Lower Extremity: Maximum Assistance - Sitting Balance Static Sitting: Independent without upper extremity support Dynamic Sitting: Reaches across midline, Reaches within base of support, Requires supervision - Transfers Wheelchair to Bed Transfers: Minimal Assistance Toilet Transfers: Minimal Assistance Comment: Tub and shower transfers not assessed during the initial evaluation. Will assess in future occupational therapy session as appropriate. - Pain Pain (assessed during therapy session): 0 - Insight/Carryover Insight/Carryover: Good - Patient/Family Education Comment: Pt education provided for increased safety awareness and proper techniques during functional mobility training - Assessment/Plan Assessment: Pt displays noted deficits in LLE strength, standing balance, and endurance s/p CVA wit hemorrhagic conversion. Pt requires min A for bed mobility , min/mod A for transfers, and min A for ambulating 100 ft with RW. L sided inattention noted during functional mobility skills. Pt is highly motivated to participate in therapy. Pt is excellent rehab candidate and will benefit from skilled PT to address deficits and maximize independnece with functional mobility skills. - Goals Timeframe: 3 weeks Goals: Bed mobility independent. Transfers mod I with AD. Ambulation 500 ft with AD mod I. Ascend/descend flight of stairs with B handrails mod I - Provider Therapist: Farideh Robles MS,OTR/L Speech Therapy - Consult Information Patient on Program: Yes Medical Diagnosis: CVA Treatment Diagnosis: - mild cognitive linguistic deficits. - mild oropharyngeal dysphagia - Assessment Problem Solving Impairment: Mild Memory Impairment: Mild Dysphagia/Swallowing Impairment: Mild Comment: mechanical soft bite-sized solids/thin liquids - Plan Assessment: Pt displays noted deficits in LLE strength, standing balance, and endurance s/p CVA wit hemorrhagic conversion. Pt requires min A for bed mobility , min/mod A for transfers, and min A for ambulating 100 ft with RW. L sided inattention noted during functional mobility skills. Pt is highly motivated to participate in therapy. Pt is excellent rehab candidate and will benefit from skilled PT to address deficits and maximize independnece with functional mobility skills. - Provider Therapist: Carmela Gore License Number: [id number] Recreational Therapy - Participation Participation: Participates in Individual and/or Group Sessions - Attendance Attendance: Daily - Activities Leisure Activities: Television - Socialization Level of Socialization: Initiates/interacts freely with care givers and peer - Diversional Time Diversional Time: television - Assessment Assessment/Plan: Pt displays noted deficits in LLE strength, standing balance, and endurance s/p CVA wit hemorrhagic conversion. Pt requires min A for bed mobility, min/mod A for transfers, and min A for ambulating 100 ft with RW. L sided inattention noted during functional mobility skills. Pt is highly motivated to participate in therapy. Pt is excellent rehab candidate and will benefit from skilled PT to address deficits and maximize independnece with functional mobility skills. - Provider Therapist: Char Spencer, [employer] #[id number] Nutrition - Current Diet Current Diet/ Supplement/ Feedings: Mech altered(Finely chopped) [place] thick liquids Moderate consistent CHO heart healthy diet - Appetite Percent Meal Consumed: 75-100% - Comments Comments: Care post CVA and safety precautions - Assessment/Goals/Time Frame Assessment/Goals/Time Frame: -complains of insomnia. -(+) episode of hypotension. Bolus IV NSS given x1 - Provider Provider: Vane Menezes RD Case Management - Discharge Plan Discharge Plan: Home with significant other/family Rehabilitation Plan - Treatment Plan Treatment Plan: Physical Therapy, Occupational Therapy, Speech, Dietary, Patient /Family Education - Discharge Plan Estimated Date of Discharge: 12/10/16 Discharge to: Home
--- NOTE | 2016-11-22 18:52 | CP.PCM.PN ---
Subjective - Date & Time of Evaluation Date of Evaluation: 11/22/16 Time of Evaluation: 18:51 - Subjective Subjective: Patient seen in room denies sob/cp making gains, but limited by endurance at times supportive family but will have difficulty taking care of him continue current care Objective - Vital Signs/Intake and Output Vital Signs (last 24 hours): Temp Pulse Resp BP Pulse Ox 97.0 F L 98 H 20 111/71 98 11/22/16 15:38 11/22/16 15:38 11/22/16 15:38 11/22/16 15:38 11/22/16 15:38 - Medications Medications: Current Medications Artificial Tears (Artificial Tears) 2 drop OU BID PRN PRN Reason: Dry eyes Last Admin: 11/20/16 14:07 Dose: 2 drop Aspirin (Aspirin Chewable) 81 mg PO DAILY [facility] Last Admin: 11/22/16 09:08 Dose: 81 mg Bisoprolol Fumarate (Zebeta) 5 mg PO DAILY [facility] Last Admin: 11/22/16 09:10 Dose: Not Given Docusate Sodium (Colace) 100 mg PO BID [facility] Last Admin: 11/22/16 16:52 Dose: 100 mg Glipizide (Glucotrol Xl) 2.5 mg PO BRK [facility] Last Admin: 11/22/16 09:00 Dose: 2.5 mg Insulin Human Regular (Humulin R) 0 units SC ACHS [facility] PRN Reason: Protocol Last Admin: 11/22/16 16:54 Dose: Not Given Lisinopril (Zestril) 5 mg PO HS [facility] Nateglinide (Starlix) 120 mg PO BID [facility] Last Admin: 11/22/16 16:53 Dose: 120 mg Pantoprazole Sodium (Protonix Ec Tab) 20 mg PO DAILY [facility] Last Admin: 11/22/16 09:08 Dose: 20 mg Sodium Chloride (Sodium Chloride Tab) 1 gm PO DAILY [facility] Last Admin: 11/22/16 09:09 Dose: 1 gm - Labs Labs: 11/20/16 06:00 11/20/16 06:00
[2016-11-23] MEDS: Insulin Regular 100 units/ml SC SCH ×4 (06:34→22:31)
[2016-11-23] MEDS: Pantoprazole 20 mg EC Tab PO SCH (08:15)
[2016-11-23] MEDS: GlipiZIDE 2.5 mg SR Tab PO SCH (08:15)
--- NOTE | 2016-11-23 19:05 | CP.PCM.PN ---
Subjective - Date & Time of Evaluation Date of Evaluation: 11/23/16 Time of Evaluation: 18:05 - Subjective Subjective: patient has no new complaints. is at the bedside. Objective - Vital Signs/Intake and Output Vital Signs (last 24 hours): Temp Pulse Resp BP Pulse Ox 97.3 F L 100 H 20 108/67 100 11/23/16 16:15 11/23/16 16:15 11/23/16 16:15 11/23/16 16:15 11/23/16 16:15 - Medications Medications: Current Medications Artificial Tears (Artificial Tears) 2 drop OU BID PRN PRN Reason: Dry eyes Last Admin: 11/20/16 14:07 Dose: 2 drop Aspirin (Aspirin Chewable) 81 mg PO DAILY [facility] Last Admin: 11/23/16 08:15 Dose: 81 mg Bisoprolol Fumarate (Zebeta) 5 mg PO DAILY [facility] Last Admin: 11/23/16 08:17 Dose: Not Given Docusate Sodium (Colace) 100 mg PO BID [facility] Last Admin: 11/23/16 17:18 Dose: 100 mg Glipizide (Glucotrol Xl) 2.5 mg PO BRK [facility] Last Admin: 11/23/16 08:15 Dose: 2.5 mg Insulin Human Regular (Humulin R) 0 units SC ACHS [facility] PRN Reason: Protocol Last Admin: 11/23/16 17:19 Dose: 1 unit Lisinopril (Zestril) 5 mg PO HS [facility] Last Admin: 11/22/16 21:45 Dose: Not Given Nateglinide (Starlix) 120 mg PO BID [facility] Last Admin: 11/23/16 17:18 Dose: 120 mg Pantoprazole Sodium (Protonix Ec Tab) 20 mg PO DAILY [facility] Last Admin: 11/23/16 08:15 Dose: 20 mg Sodium Chloride (Sodium Chloride Tab) 1 gm PO DAILY [facility] Last Admin: 11/23/16 08:15 Dose: 1 gm - Labs Labs: 11/20/16 06:00 11/20/16 06:00 - Constitutional Appears: Non-toxic - Head Exam Head Exam: NORMAL INSPECTION - Eye Exam Eye Exam: Normal appearance - ENT Exam ENT Exam: Mucous Membranes Moist - Neck Exam Neck Exam: Full ROM - Respiratory Exam Respiratory Exam: Decreased Breath Sounds - Cardiovascular Exam Cardiovascular Exam: Irregular Rhythm - GI/Abdominal Exam GI & Abdominal Exam: Normal Bowel Sounds - Rectal Exam Rectal Exam: Deferred - Extremities Exam Extremities Exam: absent: Pedal Edema - Back Exam Back Exam: NORMAL INSPECTION - Neurological Exam Neurological Exam: Alert - Psychiatric Exam Psychiatric exam: Normal Affect - Skin Skin Exam: Normal Color Assessment and Plan (1) CVA (cerebral vascular accident) Assessment & Plan: neuro follow up Status: Acute (2) Chronic atrial fibrillation Assessment & Plan: rate controlled. anticoagulation when stable Status: Acute (3) Diabetes type 2, uncontrolled Status: Acute (4) HTN (hypertension) Status: Acute
[2016-11-24] MEDS: Insulin Regular 100 units/ml SC SCH ×4 (06:48→21:00)
--- NOTE | 2016-11-24 07:51 | CP.PCM.PN ---
Subjective - Date & Time of Evaluation Date of Evaluation: 11/24/16 Time of Evaluation: 07:50 - Subjective Subjective: no complaints/distress no f/,c n/v/d per doing well w/ pt/ot moving ext well Objective - Vital Signs/Intake and Output Vital Signs (last 24 hours): Temp Pulse Resp BP Pulse Ox 97.7 F 88 20 130/60 98 11/23/16 20:08 11/23/16 22:51 11/23/16 20:08 11/23/16 22:51 11/23/16 20:08 - Medications Medications: Current Medications Artificial Tears (Artificial Tears) 2 drop OU BID PRN PRN Reason: Dry eyes Last Admin: 11/20/16 14:07 Dose: 2 drop Aspirin (Aspirin Chewable) 81 mg PO DAILY [facility] Last Admin: 11/23/16 08:15 Dose: 81 mg Bisoprolol Fumarate (Zebeta) 5 mg PO DAILY [facility] Last Admin: 11/23/16 08:17 Dose: Not Given Docusate Sodium (Colace) 100 mg PO BID [facility] Last Admin: 11/23/16 17:18 Dose: 100 mg Glipizide (Glucotrol Xl) 2.5 mg PO BRK [facility] Last Admin: 11/23/16 08:15 Dose: 2.5 mg Insulin Human Regular (Humulin R) 0 units SC ACHS [facility] PRN Reason: Protocol Last Admin: 11/24/16 06:48 Dose: Not Given Lisinopril (Zestril) 5 mg PO HS [facility] Last Admin: 11/23/16 22:51 Dose: 5 mg Nateglinide (Starlix) 120 mg PO BID [facility] Last Admin: 11/23/16 17:18 Dose: 120 mg Pantoprazole Sodium (Protonix Ec Tab) 20 mg PO DAILY [facility] Last Admin: 11/23/16 08:15 Dose: 20 mg Sodium Chloride (Sodium Chloride Tab) 1 gm PO DAILY [facility] Last Admin: 11/23/16 08:15 Dose: 1 gm - Labs Labs: 11/20/16 06:00 11/20/16 06:00 - Constitutional Appears: Well, Non-toxic, No Acute Distress - Head Exam Head Exam: ATRAUMATIC, NORMAL INSPECTION, NORMOCEPHALIC - Eye Exam Eye Exam: EOMI, Normal appearance, PERRL Pupil Exam: NORMAL ACCOMODATION, PERRL - ENT Exam ENT Exam: Mucous Membranes Moist, Normal Exam - Neck Exam Neck Exam: Full ROM, Normal Inspection. absent: Lymphadenopathy - Respiratory Exam Respiratory Exam: Clear to Ausculation Bilateral, NORMAL BREATHING PATTERN - Cardiovascular Exam Cardiovascular Exam: Irregular Rhythm, +S1, +S2. absent: Murmur - GI/Abdominal Exam GI & Abdominal Exam: Soft, Normal Bowel Sounds. absent: Tenderness - Extremities Exam Extremities Exam: Full ROM, Normal Capillary Refill, Normal Inspection. absent : Joint Swelling, Pedal Edema - Back Exam Back Exam: NORMAL INSPECTION - Neurological Exam Neurological Exam: Abnormal Gait, Alert, Awake, CN II-XII Intact, Oriented x3 Neuro motor strength exam: Right Upper Extremity: 3 - Psychiatric Exam Psychiatric exam: Normal Affect, Normal Mood - Skin Skin Exam: Dry, Intact, Normal Color, Warm Assessment and Plan (1) CVA (cerebral vascular accident) Status: Acute (2) Chronic atrial fibrillation Status: Acute (3) DVT prophylaxis Status: Acute (4) Diabetes type 2, uncontrolled Status: Acute (5) HTN (hypertension) Status: Acute (6) Intracerebral hematoma Status: Acute - Assessment and Plan (Free Text) Assessment: (1) CVA (cerebral vascular accident) Assessment and Plan: neuro st/pt/ot dr mendez asa x2 wks until back on eliquis per dr abreu Status: Acute Priority: High (2) Chronic atrial fibrillation Assessment and Plan: asa x 2 wk then eliquis rate control cardio Status: Acute (3) DVT prophylaxis Assessment and Plan: scd nad ae hose ambualtion eliquis in 2 wks Status: Acute (4) Diabetes type 2, uncontrolled Assessment and Plan: riss home meds, fsbg diet control Status: Acute (5) HTN (hypertension) Assessment and Plan: nacl lisinopril close monitor and tight control Status: Acute (6) Intracerebral hematoma Assessment and Plan: hold eliquis x 2wks Status: Acute
[2016-11-24] MEDS: GlipiZIDE 2.5 mg SR Tab PO SCH (09:35)
[2016-11-24] MEDS: Pantoprazole 20 mg EC Tab PO SCH (09:35)
--- NOTE | 2016-11-24 19:21 | CP.PCM.PN ---
Subjective - Date & Time of Evaluation Date of Evaluation: 11/24/16 Time of Evaluation: 19:20 - Subjective Subjective: Patient seen in room and discussed with progress he was able to ambulate 140' today no pain issue no sob/cp continue current care Objective - Vital Signs/Intake and Output Vital Signs (last 24 hours): Temp Pulse Resp BP Pulse Ox 97.9 F 92 H 20 100/61 97 11/24/16 16:32 11/24/16 16:32 11/24/16 16:32 11/24/16 16:32 11/24/16 16:32 - Medications Medications: Current Medications Artificial Tears (Artificial Tears) 2 drop OU BID PRN PRN Reason: Dry eyes Last Admin: 11/20/16 14:07 Dose: 2 drop Aspirin (Aspirin Chewable) 81 mg PO DAILY [facility] Last Admin: 11/24/16 09:35 Dose: 81 mg Bisoprolol Fumarate (Zebeta) 5 mg PO DAILY [facility] Last Admin: 11/24/16 09:34 Dose: Not Given Docusate Sodium (Colace) 100 mg PO BID [facility] Last Admin: 11/24/16 17:25 Dose: 100 mg Glipizide (Glucotrol Xl) 2.5 mg PO BRK [facility] Last Admin: 11/24/16 09:35 Dose: 2.5 mg Insulin Human Regular (Humulin R) 0 units SC ACHS [facility] PRN Reason: Protocol Last Admin: 11/24/16 17:24 Dose: Not Given Lisinopril (Zestril) 5 mg PO HS [facility] Last Admin: 11/23/16 22:51 Dose: 5 mg Nateglinide (Starlix) 120 mg PO BID [facility] Last Admin: 11/24/16 17:25 Dose: 120 mg Pantoprazole Sodium (Protonix Ec Tab) 20 mg PO DAILY [facility] Last Admin: 11/24/16 09:35 Dose: 20 mg Sodium Chloride (Sodium Chloride Tab) 1 gm PO DAILY [facility] Last Admin: 11/24/16 09:35 Dose: 1 gm - Labs Labs: 11/20/16 06:00 11/20/16 06:00
[2016-11-25] MEDS: Insulin Regular 100 units/ml SC SCH ×4 (07:09→21:00)
[2016-11-25] MEDS: GlipiZIDE 2.5 mg SR Tab PO SCH (08:12)
[2016-11-25] MEDS: Pantoprazole 20 mg EC Tab PO SCH (08:12)
--- NOTE | 2016-11-25 13:33 | CP.PCM.PN ---
Subjective - Date & Time of Evaluation Date of Evaluation: 11/25/16 Time of Evaluation: 13:33 - Subjective Subjective: Patient seen in PT continues to work hard denies sob/cp making gains team conf 11/29/16 continue current care Objective - Vital Signs/Intake and Output Vital Signs (last 24 hours): Temp Pulse Resp BP Pulse Ox 97.2 F L 61 18 114/54 L 98 11/25/16 07:42 11/25/16 12:00 11/25/16 07:42 11/25/16 07:42 11/25/16 12:00 - Medications Medications: Current Medications Artificial Tears (Artificial Tears) 2 drop OU BID PRN PRN Reason: Dry eyes Last Admin: 11/20/16 14:07 Dose: 2 drop Aspirin (Aspirin Chewable) 81 mg PO DAILY [facility] Last Admin: 11/25/16 08:12 Dose: 81 mg Bisoprolol Fumarate (Zebeta) 5 mg PO DAILY [facility] Last Admin: 11/25/16 08:13 Dose: Not Given Docusate Sodium (Colace) 100 mg PO BID [facility] Last Admin: 11/25/16 08:12 Dose: 100 mg Glipizide (Glucotrol Xl) 2.5 mg PO BRK [facility] Last Admin: 11/25/16 08:12 Dose: 2.5 mg Insulin Human Regular (Humulin R) 0 units SC ACHS [facility] PRN Reason: Protocol Last Admin: 11/25/16 12:00 Dose: 2 unit Lisinopril (Zestril) 5 mg PO HS [facility] Last Admin: 11/24/16 21:33 Dose: Not Given Nateglinide (Starlix) 120 mg PO BID [facility] Last Admin: 11/25/16 08:12 Dose: 120 mg Pantoprazole Sodium (Protonix Ec Tab) 20 mg PO DAILY [facility] Last Admin: 11/25/16 08:12 Dose: 20 mg Sodium Chloride (Sodium Chloride Tab) 1 gm PO DAILY [facility] Last Admin: 11/25/16 08:12 Dose: 1 gm - Labs Labs: 11/20/16 06:00 11/20/16 06:00
[2016-11-26] MEDS: Insulin Regular 100 units/ml SC SCH ×4 (07:04→22:20)
[2016-11-26] MEDS: GlipiZIDE 2.5 mg SR Tab PO SCH (08:57)
[2016-11-26] MEDS: Pantoprazole 20 mg EC Tab PO SCH (08:57)
--- NOTE | 2016-11-26 10:00 | CP.PCM.PN ---
Subjective - Date & Time of Evaluation Date of Evaluation: 11/26/16 Time of Evaluation: 10:00 - Subjective Subjective: doing well in pt. lh still weaker than rh but improving, lue still weaker than rue but improving. gait is improving w/ pt/ot. no new complaints. consults appriciated Objective - Vital Signs/Intake and Output Vital Signs (last 24 hours): Temp Pulse Resp BP Pulse Ox 98.1 F 89 18 108/66 97 11/25/16 19:00 11/25/16 21:17 11/25/16 19:00 11/25/16 21:17 11/25/16 19:00 - Medications Medications: Current Medications Artificial Tears (Artificial Tears) 2 drop OU BID PRN PRN Reason: Dry eyes Last Admin: 11/20/16 14:07 Dose: 2 drop Aspirin (Aspirin Chewable) 81 mg PO DAILY [facility] Last Admin: 11/26/16 08:55 Dose: 81 mg Bisoprolol Fumarate (Zebeta) 5 mg PO DAILY [facility] Last Admin: 11/26/16 09:00 Dose: Not Given Docusate Sodium (Colace) 100 mg PO BID [facility] Last Admin: 11/26/16 08:56 Dose: 100 mg Glipizide (Glucotrol Xl) 2.5 mg PO BRK [facility] Last Admin: 11/26/16 08:57 Dose: 2.5 mg Insulin Human Regular (Humulin R) 0 units SC ACHS [facility] PRN Reason: Protocol Last Admin: 11/26/16 07:04 Dose: 1 unit Lisinopril (Zestril) 5 mg PO HS [facility] Last Admin: 11/25/16 21:17 Dose: Not Given Nateglinide (Starlix) 120 mg PO BID [facility] Last Admin: 11/26/16 08:58 Dose: 120 mg Pantoprazole Sodium (Protonix Ec Tab) 20 mg PO DAILY [facility] Last Admin: 11/26/16 08:57 Dose: 20 mg Sodium Chloride (Sodium Chloride Tab) 1 gm PO DAILY [facility] Last Admin: 11/26/16 08:58 Dose: 1 gm - Labs Labs: 11/20/16 06:00 11/20/16 06:00 - Constitutional Appears: Well, Non-toxic, No Acute Distress - Head Exam Head Exam: ATRAUMATIC, NORMAL INSPECTION, NORMOCEPHALIC - Eye Exam Eye Exam: EOMI, Normal appearance, PERRL Pupil Exam: NORMAL ACCOMODATION, PERRL - ENT Exam ENT Exam: Mucous Membranes Moist, Normal Exam - Neck Exam Neck Exam: Full ROM, Normal Inspection. absent: Lymphadenopathy - Respiratory Exam Respiratory Exam: Clear to Ausculation Bilateral, NORMAL BREATHING PATTERN - Cardiovascular Exam Cardiovascular Exam: Irregular Rhythm, +S1, +S2. absent: Murmur - GI/Abdominal Exam GI & Abdominal Exam: Soft, Normal Bowel Sounds. absent: Tenderness - Extremities Exam Extremities Exam: Full ROM, Normal Capillary Refill, Normal Inspection. absent : Joint Swelling, Pedal Edema - Back Exam Back Exam: NORMAL INSPECTION - Neurological Exam Neurological Exam: Abnormal Gait, Alert, Awake, CN II-XII Intact, Oriented x3 - Psychiatric Exam Psychiatric exam: Normal Affect, Normal Mood - Skin Skin Exam: Dry, Intact, Normal Color, Warm Assessment and Plan (1) CVA (cerebral vascular accident) Status: Acute (2) Chronic atrial fibrillation Status: Acute (3) DVT prophylaxis Status: Acute (4) Diabetes type 2, uncontrolled Status: Acute (5) HTN (hypertension) Status: Acute (6) Intracerebral hematoma Status: Acute - Assessment and Plan (Free Text) Assessment: (1) CVA (cerebral vascular accident) Assessment and Plan: neuro st/pt/ot dr mendez asa x2 wks until back on eliquis per dr abreu Status: Acute Priority: High (2) Chronic atrial fibrillation Assessment and Plan: asa x 2 wk then eliquis rate control cardio Status: Acute (3) DVT prophylaxis Assessment and Plan: scd nad ae hose ambualtion eliquis in 2 wks Status: Acute (4) Diabetes type 2, uncontrolled Assessment and Plan: riss home meds, fsbg diet control Status: Acute (5) HTN (hypertension) Assessment and Plan: nacl lisinopril close monitor and tight control Status: Acute (6) Intracerebral hematoma Assessment and Plan: hold eliquis x 2wks Status: Acute
[2016-11-27] MEDS: Insulin Regular 100 units/ml SC SCH ×4 (06:38→21:16)
[2016-11-27] MEDS: Pantoprazole 20 mg EC Tab PO SCH (09:05)
[2016-11-27] MEDS: GlipiZIDE 2.5 mg SR Tab PO SCH (09:05)
[2016-11-28] MEDS: Insulin Regular 100 units/ml SC SCH ×4 (06:46→21:30)
--- NOTE | 2016-11-28 07:30 | CP.PCM.PN ---
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 per rn pt still has period sof confusion and lh neglect. no f/c, n/v/d eliquis to start in am. Objective - Vital Signs/Intake and Output Vital Signs (last 24 hours): Temp Pulse Resp BP Pulse Ox 98.2 F 83 20 106/67 98 11/27/16 20:36 11/27/16 22:19 11/27/16 20:36 11/27/16 22:19 11/27/16 20:36 - Medications Medications: Current Medications Artificial Tears (Artificial Tears) 2 drop OU BID PRN PRN Reason: Dry eyes Last Admin: 11/20/16 14:07 Dose: 2 drop Aspirin (Aspirin Chewable) 81 mg PO DAILY [facility] Last Admin: 11/27/16 09:05 Dose: 81 mg Bisoprolol Fumarate (Zebeta) 5 mg PO DAILY [facility] Last Admin: 11/27/16 09:06 Dose: Not Given Docusate Sodium (Colace) 100 mg PO BID [facility] Last Admin: 11/27/16 17:05 Dose: 100 mg Glipizide (Glucotrol Xl) 2.5 mg PO BRK [facility] Last Admin: 11/27/16 09:05 Dose: 2.5 mg Insulin Human Regular (Humulin R) 0 units SC ACHS [facility] PRN Reason: Protocol Last Admin: 11/28/16 06:46 Dose: Not Given Lisinopril (Zestril) 5 mg PO HS [facility] Last Admin: 11/27/16 22:19 Dose: Not Given Nateglinide (Starlix) 120 mg PO BID [facility] Last Admin: 11/27/16 17:06 Dose: 120 mg Pantoprazole Sodium (Protonix Ec Tab) 20 mg PO DAILY [facility] Last Admin: 11/27/16 09:05 Dose: 20 mg Sodium Chloride (Sodium Chloride Tab) 1 gm PO DAILY [facility] Last Admin: 11/27/16 09:05 Dose: 1 gm - Labs Labs: 11/20/16 06:00 11/20/16 06:00 - Constitutional Appears: Well, Non-toxic, No Acute Distress - Head Exam Head Exam: ATRAUMATIC, NORMAL INSPECTION, NORMOCEPHALIC - Eye Exam Eye Exam: EOMI, Normal appearance, PERRL Pupil Exam: NORMAL ACCOMODATION, PERRL - ENT Exam ENT Exam: Mucous Membranes Moist, Normal Exam - Neck Exam Neck Exam: Full ROM, Normal Inspection. absent: Lymphadenopathy - Respiratory Exam Respiratory Exam: Clear to Ausculation Bilateral, NORMAL BREATHING PATTERN - Cardiovascular Exam Cardiovascular Exam: REGULAR RHYTHM, RRR, +S1, +S2. absent: Murmur - GI/Abdominal Exam GI & Abdominal Exam: Soft, Normal Bowel Sounds. absent: Tenderness - Extremities Exam Extremities Exam: Full ROM, Normal Capillary Refill, Normal Inspection. absent : Joint Swelling, Pedal Edema - Back Exam Back Exam: NORMAL INSPECTION - Neurological Exam Neurological Exam: Alert, Awake, CN II-XII Intact, Normal Gait, Oriented x3 - Psychiatric Exam Psychiatric exam: Normal Affect, Normal Mood - Skin Skin Exam: Dry, Intact, Normal Color, Warm Assessment and Plan (1) CVA (cerebral vascular accident) Status: Acute (2) Chronic atrial fibrillation Status: Acute (3) DVT prophylaxis Status: Acute (4) Diabetes type 2, uncontrolled Status: Acute (5) HTN (hypertension) Status: Acute (6) Intracerebral hematoma Status: Acute - Assessment and Plan (Free Text) Assessment: (1) CVA (cerebral vascular accident) Assessment and Plan: neuro st/pt/ot dr mendez asa x2 wks until back on eliquis per dr abreu -start in am Status: Acute Priority: High (2) Chronic atrial fibrillation Assessment and Plan: asa x 2 wk then eliquis rate control cardio Status: Acute (3) DVT prophylaxis Assessment and Plan: scd nad ae hose ambualtion eliquis in 2 wks Status: Acute (4) Diabetes type 2, uncontrolled Assessment and Plan: riss home meds, fsbg diet control Status: Acute (5) HTN (hypertension) Assessment and Plan: nacl lisinopril close monitor and tight control Status: Acute (6) Intracerebral hematoma Assessment and Plan: hold eliquis x 2wks Status: Acute
[2016-11-28] MEDS: GlipiZIDE 2.5 mg SR Tab PO SCH (08:48)
[2016-11-28] MEDS: Pantoprazole 20 mg EC Tab PO SCH (08:49)
[2016-11-29] MEDS: Insulin Regular 100 units/ml SC SCH ×4 (06:30→21:15)
[2016-11-29] MEDS: Pantoprazole 20 mg EC Tab PO SCH (09:00)
[2016-11-29] MEDS: GlipiZIDE 2.5 mg SR Tab PO SCH (09:00)
--- NOTE | 2016-11-29 13:21 | PSY.TMCNF ---
Nursing - Vital Signs Vital Signs (Last 8 hours): Vital Signs 11/29/16 11/29/16 11/29/16 08:38 09:00 09:22 Temperature 97.5 F L 97.5 F L Pulse Rate 90 84 84 Respiratory 19 19 Rate Blood Pressure 100/68 100/68 O2 Sat by Pulse 99 95 Oximetry Pain: 0 - Precautions: Precautions: Fall Prevention, Aspiration - Medications/Other Issues Comment: Pt at moderate nutritional risk. goals: 1. Pt will consume > 75% of his meals. 2. Pt will maintain a blood sugar level of 70-180 mg/dL. Follow-up due on 11/28/2016 - Consults Comment: Dr. Albert, Dr. Moore - Toileting Toileting: Minimal Assistance - Bladder Management Bladder Pattern: Normal Voiding Method: Toilet, Urinal - Bowel Management Bowel Pattern: Normal Bowel Management: Supervision Frequency of Accidents: 0 - Transfers Transfers: Minimal Assistance - ADL's ADL's: Moderate Assistance - Pain Management Comments: Denies pain - Patient/Family Teaching Comments: Post CVA care, safety - Goals/Time Frame Comments: Per IPOC Physical Therapy - Bed Mobility Bed Mobility: Supervision - Transfers Sit to Stand: Supervision, Verbal Cues, Contact Guard - Ambulation Level of Assistance: Supervision, Contact Guard Distance (ft.): 200 Assistive Devices: Single point cane, Rolling Walker - Stair Negotiation Stairs: Level of Assistance: Contact Guard Number of Stairs: 12 Stairs: Assistive Devices: Right Handrail - Standing Balance Static Stand: Modified Ralls with assistive device Dynamic Stand: Contact Guard Assist - Pain Pain (assessed during therapy session): 0 - Insight/Carryover Insight/Carryover: Fair - Patient/Family Education Comment: Pt and family education for increased safety awareness and proper techniques during functional mobility tasks. Educated pts dtr to encourage pt to utilize LUE/LLE while in room. - Assessment/Plan Assessment: Iván Kim presents with 1.) mild cognitive-linguistic deficits characterized by impaired short-term recall, thought organization, safety/ insight, and complex problem solving/reasoning; and 2.) mild oropharyngeal dysphagia (per MBS completed 11/21/16) characterized by prolonged A-P transit time , prolonged mastication time for regular solids, and mildly reduced BOT propulsion with mild stasis in valleculae; pt's diet was advanced to mechanical soft bite-sized solids and thin liquids, which he has been tolerating without overt s/s aspiration when utilizing safe swallow strategies. Pt has demonstrated good participation in ST, though cognition, hearing, visual deficits, and lethargy are barriers to learning. He would benefit from continued speech and dysphagia tx 3-5x/week to improve cognition and swallow function. - Goals Timeframe: 2 weeks Goals: Sit < > supine mod I. Sit < > stand mod I. Pt will ambulate 500 ft on even/uneven surfaces with supervision with AD. Pt will ascend/descend flight of stairs with handrail and supervision - Provider Therapist: Lu De Jesus PT, DPT License Number: [id number] Occupational Therapy - Arousal/Attention/Orientation Patient Orientation: Person, Place, Time, Appropriate to Age, Appropriate to Situation - ADL/IADL Self Feeding: Verbal Cues, Set-up Help, Contact Guard Grooming: Supervision, Verbal Cues, Set-up Help Bathing-Upper Extremity: Verbal Cues, Set-up Help, Contact Guard Bathing-Lower Extremity: Verbal Cues, Set-up Help, Contact Guard Dressing-Upper Extremity: Supervision, Verbal Cues, Set-up Help, Contact Guard Dressing-Lower Extremity: Verbal Cues, Set-up Help, Contact Guard, Minimal Assistance - Sitting Balance Static Sitting: Independent without upper extremity support Dynamic Sitting: Reaches across midline, Reaches within base of support, Requires supervision - Transfers Wheelchair to Bed Transfers: Verbal Cues, Set-up Help, Contact Guard Toilet Transfers: Verbal Cues, Set-up Help, Contact Guard Tub Transfers: Verbal Cues, Set-up Help, Minimal Assistance Comment: Pt has a tub-shower at home with curtain. Discussed both tub-bench and shower chair with Pt and family. Recommend tub-bench at this time. Pt and fmaily in agreement. - Upper Extremity Status Right Upper Extremity Comment: ROM WFL Left Upper Extremity Comment: ROM WFL - Pain Pain (assessed during therapy session): 0 - Insight/Carryover Insight/Carryover: Fair - Patient/Family Education Comment: Pt and family education for increased safety awareness and proper techniques during functional mobility tasks. Educated pts dtr to encourage pt to utilize LUE/LLE while in room. - Assessment/Plan Assessment: Iván Kim presents with 1.) mild cognitive-linguistic deficits characterized by impaired short-term recall, thought organization, safety/ insight, and complex problem solving/reasoning; and 2.) mild oropharyngeal dysphagia (per MBS completed 11/21/16) characterized by prolonged A-P transit time , prolonged mastication time for regular solids, and mildly reduced BOT propulsion with mild stasis in valleculae; pt's diet was advanced to mechanical soft bite-sized solids and thin liquids, which he has been tolerating without overt s/s aspiration when utilizing safe swallow strategies. Pt has demonstrated good participation in ST, though cognition, hearing, visual deficits, and lethargy are barriers to learning. He would benefit from continued speech and dysphagia tx 3-5x/week to improve cognition and swallow function. - Goals Timeframe: 2 weeks Goals: Sit < > supine mod I. Sit < > stand mod I. Pt will ambulate 500 ft on even/uneven surfaces with supervision with AD. Pt will ascend/descend flight of stairs with handrail and supervision - Provider Therapist: Janel chávez License Number: [id number] Speech Therapy - Consult Information Patient on Program: Yes Medical Diagnosis: CVA Treatment Diagnosis: - mild cognitive linguistic deficits. - mild oropharyngeal dysphagia - Assessment Problem Solving Impairment: Mild Memory Impairment: Mild Dysphagia/Swallowing Impairment: Mild - Plan Assessment: Iván Kim presents with 1.) mild cognitive-linguistic deficits characterized by impaired short-term recall, thought organization, safety/ insight, and complex problem solving/reasoning; and 2.) mild oropharyngeal dysphagia (per MBS completed 11/21/16) characterized by prolonged A-P transit time , prolonged mastication time for regular solids, and mildly reduced BOT propulsion with mild stasis in valleculae; pt's diet was advanced to mechanical soft bite-sized solids and thin liquids, which he has been tolerating without overt s/s aspiration when utilizing safe swallow strategies. Pt has demonstrated good participation in ST, though cognition, hearing, visual deficits, and lethargy are barriers to learning. He would benefit from continued speech and dysphagia tx 3-5x/week to improve cognition and swallow function. Plan: Continue Dysphagia Therapy - Provider Therapist: Carmela Gore License Number: [id number] Recreational Therapy - Participation Participation: Participates in Individual and/or Group Sessions - Attendance Attendance: 3-5 times per week - Activities Leisure Activities: Cards and Games - Socialization Level of Socialization: Initiates/interacts freely with care givers and peer - Diversional Time Diversional Time: television - Assessment Assessment/Plan: Iván Kim presents with 1.) mild cognitive-linguistic deficits characterized by impaired short-term recall, thought organization, safety/insight, and complex problem solving/reasoning; and 2.) mild oropharyngeal dysphagia (per MBS completed 11/21/16) characterized by prolonged A- P transit time, prolonged mastication time for regular solids, and mildly reduced BOT propulsion with mild stasis in valleculae; pt's diet was advanced to mechanical soft bite-sized solids and thin liquids, which he has been tolerating without overt s/s aspiration when utilizing safe swallow strategies. Pt has demonstrated good participation in ST, though cognition, hearing, visual deficits, and lethargy are barriers to learning. He would benefit from continued speech and dysphagia tx 3-5x/week to improve cognition and swallow function. - Provider Therapist: Char Spencer, [id number] Nutrition - Current Diet Current Diet/ Supplement/ Feedings: advanced bite size thin liquids Moderate consistent CHO Heart healthy - Appetite Percent Meal Consumed: 50-74% - Comments Comments: Post CVA care, safety - Assessment/Goals/Time Frame Assessment/Goals/Time Frame: Pt at moderate nutritional risk. goals: 1. Pt will consume > 75% of his meals. 2. Pt will maintain a blood sugar level of 70- 180 mg/dL. Follow-up due on 11/28/2016 - Provider Provider: Vane Menezes RD Case Management - Psychosocial Assessment Support Systems: Patient lives with daughter and spouse. Delores Kim ( daughter)- [phone] Psychological Interventions/Needs: Patient is alert and oriented and able to verbalize needs. Patient very motivated for therapy Discharge Concerns: Patient continues to require [facility]-Luanne for bed mobility, transfers, and ambulation. Patient/Family Meeting: CM met with patient/family and rehab team. 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 1. Goal: Intermittent supervision overall. 2. Plan: Home with home visiting nurse services. 3. DME needs. 4. f/u appts. 5. continued emotional support. 6. caregiver training? 7. Tentative discharge date: 12/10/2016 - Discharge Plan Discharge Plan: Home with services Home Services: [facility] - Provider Provider: LIZBETH Thorne, DATABASE TECHNICIAN License Number: [id number] Rehabilitation Plan - Treatment Plan Treatment Plan: Physical Therapy, Occupational Therapy, Speech, Dietary, Patient /Family Education - Recommendation Recommendation: Physical Therapy, Occupational Therapy, Speech, Dietary, Patient /Family Education - Discharge Plan Discharge to: Home ( d/c )
--- NOTE | 2016-11-29 15:07 | CP.PCM.PN ---
Subjective - Date & Time of Evaluation Date of Evaluation: 11/29/16 Time of Evaluation: 10:00 - Subjective Subjective: patient with generalized weakness no acute complaints Objective - Vital Signs/Intake and Output Vital Signs (last 24 hours): Temp Pulse Resp BP Pulse Ox 97.5 F L 84 19 100/68 95 11/29/16 09:00 11/29/16 09:22 11/29/16 09:00 11/29/16 09:00 11/29/16 09:22 - Medications Medications: Current Medications Artificial Tears (Artificial Tears) 2 drop OU BID PRN PRN Reason: Dry eyes Last Admin: 11/20/16 14:07 Dose: 2 drop Aspirin (Aspirin Chewable) 81 mg PO DAILY [facility] Last Admin: 11/29/16 09:00 Dose: 81 mg Bisoprolol Fumarate (Zebeta) 5 mg PO DAILY [facility] Last Admin: 11/29/16 09:01 Dose: Not Given Docusate Sodium (Colace) 100 mg PO BID [facility] Last Admin: 11/29/16 09:00 Dose: 100 mg Glipizide (Glucotrol Xl) 2.5 mg PO BRK [facility] Last Admin: 11/29/16 09:00 Dose: 2.5 mg Insulin Human Regular (Humulin R) 0 units SC ACHS [facility] PRN Reason: Protocol Last Admin: 11/29/16 12:18 Dose: 1 unit Lisinopril (Zestril) 5 mg PO HS [facility] Last Admin: 11/28/16 21:37 Dose: 5 mg Nateglinide (Starlix) 120 mg PO BID [facility] Last Admin: 11/29/16 09:00 Dose: 120 mg Pantoprazole Sodium (Protonix Ec Tab) 20 mg PO DAILY [facility] Last Admin: 11/29/16 09:00 Dose: 20 mg Sodium Chloride (Sodium Chloride Tab) 1 gm PO DAILY [facility] Last Admin: 11/29/16 09:00 Dose: 1 gm - Labs Labs: 11/20/16 06:00 11/20/16 06:00 - Head Exam Head Exam: ATRAUMATIC, NORMAL INSPECTION, NORMOCEPHALIC - Eye Exam Eye Exam: EOMI, Normal appearance, PERRL Pupil Exam: NORMAL ACCOMODATION - ENT Exam ENT Exam: Mucous Membranes Moist, Normal Exam - Neck Exam Neck Exam: Normal Inspection - Respiratory Exam Respiratory Exam: NORMAL BREATHING PATTERN - Cardiovascular Exam Cardiovascular Exam: REGULAR RHYTHM - GI/Abdominal Exam GI & Abdominal Exam: Normal Bowel Sounds - Rectal Exam Rectal Exam: NORMAL INSPECTION - Exam External exam: NORMAL EXTERNAL EXAM - Extremities Exam Extremities Exam: Normal Capillary Refill, Normal Inspection - Back Exam Back Exam: NORMAL INSPECTION - Neurological Exam Neurological Exam: Alert, Awake Neuro motor strength exam: Left Upper Extremity: 3, Right Upper Extremity: 3, Left Lower Extremity: 3, Right Lower Extremity: 3 - Psychiatric Exam Psychiatric exam: Normal Affect, Normal Mood - Skin Skin Exam: Dry, Intact Assessment and Plan (1) CVA (cerebral vascular accident) Assessment & Plan: physical, occupational, rec therapy status post team covering for Dr mendez Status: Acute (2) Chronic atrial fibrillation Status: Acute (3) DVT prophylaxis Status: Acute (4) Diabetes type 2, uncontrolled Status: Acute (5) HTN (hypertension) Status: Acute (6) Intracerebral hematoma Status: Acute
--- NOTE | 2016-11-29 15:40 | CP.PCM.PN ---
Subjective - Date & Time of Evaluation Date of Evaluation: 11/29/16 Time of Evaluation: 13:00 - Subjective Subjective: Mr. Kim was seen and examined today at bedside. He was found in NAD and was sleeping with his present, sitting next to him. He woke up and was pleasant and conversant. He had no complaints. Objective - Vital Signs/Intake and Output Vital Signs (last 24 hours): Temp Pulse Resp BP Pulse Ox 97.5 F L 84 19 100/68 95 11/29/16 09:00 11/29/16 09:22 11/29/16 09:00 11/29/16 09:00 11/29/16 09:22 - Medications Medications: Current Medications Artificial Tears (Artificial Tears) 2 drop OU BID PRN PRN Reason: Dry eyes Last Admin: 11/20/16 14:07 Dose: 2 drop Aspirin (Aspirin Chewable) 81 mg PO DAILY [facility] Last Admin: 11/29/16 09:00 Dose: 81 mg Bisoprolol Fumarate (Zebeta) 5 mg PO DAILY [facility] Last Admin: 11/29/16 09:01 Dose: Not Given Docusate Sodium (Colace) 100 mg PO BID [facility] Last Admin: 11/29/16 09:00 Dose: 100 mg Glipizide (Glucotrol Xl) 2.5 mg PO BRK [facility] Last Admin: 11/29/16 09:00 Dose: 2.5 mg Insulin Human Regular (Humulin R) 0 units SC ACHS [facility] PRN Reason: Protocol Last Admin: 11/29/16 12:18 Dose: 1 unit Lisinopril (Zestril) 5 mg PO HS [facility] Last Admin: 11/28/16 21:37 Dose: 5 mg Nateglinide (Starlix) 120 mg PO BID [facility] Last Admin: 11/29/16 09:00 Dose: 120 mg Pantoprazole Sodium (Protonix Ec Tab) 20 mg PO DAILY [facility] Last Admin: 11/29/16 09:00 Dose: 20 mg Sodium Chloride (Sodium Chloride Tab) 1 gm PO DAILY [facility] Last Admin: 11/29/16 09:00 Dose: 1 gm - Labs Labs: 11/20/16 06:00 11/20/16 06:00 - Head Exam Head Exam: ATRAUMATIC, NORMAL INSPECTION, NORMOCEPHALIC - Eye Exam Eye Exam: EOMI, Normal appearance, PERRL - Neck Exam Neck Exam: Full ROM, Normal Inspection. absent: Lymphadenopathy - Neurological Exam Neurological Exam: Abnormal Gait, Alert, Awake, CN II-XII Intact, Normal Gait, Oriented x3 Neuro motor strength exam: Left Upper Extremity: 4, Right Upper Extremity: 5, Left Lower Extremity: 4, Right Lower Extremity: 5 Assessment and Plan (1) CVA (cerebral vascular accident) Assessment & Plan: Will obtain a follow-up CT of the head to evaluate progression and resolution of hemorrhagic conversion. If there is good resolution, we will consider starting Eliquis at 2.5 mg BID and stopping aspirin for secondary stroke prevention in the setting of atrial fibrillation. His CADS-VASC score for ischemic stroke is 7, which confers to an 11.2-15.7% per year risk of stroke. His HAS-BLED score is 5, which equates to a 9.1% or 12.5 bleeds per 100 patient-years with anticoagulation. Although it is a difficult decision to start anticoagulation, especially since he had hemorrhagic conversion before, his risk of ischemic stroke is higher than his risk for major bleeding. This will be discussed with the patient and his family and the decision will be left up to them. Status: Acute
--- NOTE | 2016-11-29 17:25 | CT ---
PROCEDURE: CT HEAD WITHOUT CONTRAST. HISTORY: Repeat CT COMPARISON: 11/19/2016. TECHNIQUE: Axial computed tomography images were obtained through the head/brain without intravenous contrast. Coronal and sagittal reconstructed images. Radiation dose: Total exam DLP = 1275.25 mGy-cm. This CT exam was performed using one or more of the following dose reduction techniques: Automated exposure control, adjustment of the mA and/or kV according to patient size, and/or use of iterative reconstruction technique. FINDINGS: HEMORRHAGE: Interval improvement in right frontal parietal hematoma. Extensive acute hemorrhage within posterior right parietal region at the site of previously identified right MCA infarct. Additional hemorrhagic foci identified and high right parietal region. These are more pronounced than seen previously. BRAIN: No mass effect or edema. No atrophy or chronic microvascular ischemic changes. VENTRICLES: Unremarkable. No hydrocephalus. CALVARIUM: Unremarkable. PARANASAL SINUSES: Unremarkable as visualized. No significant inflammatory changes. MASTOID AIR CELLS: Unremarkable as visualized. No inflammatory changes. OTHER FINDINGS: None. IMPRESSION: Multiple foci of acute hemorrhage in the right parietal region. This includes Previously identified large bland infarct posterior right parietal region now contains a hemorrhagic component. There is no appreciable midline shift although there is cortical, vasogenic edema. Interval improvement in previously identified parenchymal hemorrhage right frontal parietal region. Critical results protocol: Study completed 17:54. I discussed findings with the nurse involved in the care and management this individual (GILSON Nava) at the time of this interpretation 17:17 November 29, 2016.
[2016-11-30] MEDS: Insulin Regular 100 units/ml SC SCH ×4 (06:40→22:14)
--- NOTE | 2016-11-30 08:20 | CP.PCM.PN ---
Subjective - Date & Time of Evaluation Date of Evaluation: 11/30/16 Time of Evaluation: 08:16 - Subjective Subjective: improving, stilll w/ left sided neglect. no f/c, n/v/d for possible dc 12/09/16 ct yesterday w some bleeding noted, eliquis dc and asa to cont by neuro dr harry Objective - Vital Signs/Intake and Output Vital Signs (last 24 hours): Temp Pulse Resp BP Pulse Ox 98.2 F 86 20 121/77 96 11/29/16 20:07 11/29/16 21:52 11/29/16 20:07 11/29/16 21:52 11/29/16 20:07 - Medications Medications: Current Medications Artificial Tears (Artificial Tears) 2 drop OU BID PRN PRN Reason: Dry eyes Last Admin: 11/20/16 14:07 Dose: 2 drop Aspirin (Aspirin Chewable) 81 mg PO DAILY [facility] Last Admin: 11/29/16 09:00 Dose: 81 mg Bisoprolol Fumarate (Zebeta) 5 mg PO DAILY [facility] Last Admin: 11/29/16 09:01 Dose: Not Given Docusate Sodium (Colace) 100 mg PO BID [facility] Last Admin: 11/29/16 17:26 Dose: 100 mg Glipizide (Glucotrol Xl) 2.5 mg PO BRK [facility] Last Admin: 11/29/16 09:00 Dose: 2.5 mg Insulin Human Regular (Humulin R) 0 units SC ACHS [facility] PRN Reason: Protocol Last Admin: 11/30/16 06:40 Dose: Not Given Lisinopril (Zestril) 5 mg PO HS [facility] Last Admin: 11/29/16 21:52 Dose: 5 mg Nateglinide (Starlix) 120 mg PO BID [facility] Last Admin: 11/29/16 17:26 Dose: 120 mg Pantoprazole Sodium (Protonix Ec Tab) 20 mg PO DAILY [facility] Last Admin: 11/29/16 09:00 Dose: 20 mg Sodium Chloride (Sodium Chloride Tab) 1 gm PO DAILY [facility] Last Admin: 11/29/16 09:00 Dose: 1 gm - Labs Labs: 11/20/16 06:00 11/20/16 06:00 - Constitutional Appears: Well, Non-toxic, No Acute Distress - Head Exam Head Exam: ATRAUMATIC, NORMAL INSPECTION, NORMOCEPHALIC - Eye Exam Eye Exam: EOMI, Normal appearance, PERRL Pupil Exam: NORMAL ACCOMODATION, PERRL - ENT Exam ENT Exam: Mucous Membranes Moist, Normal Exam - Neck Exam Neck Exam: Full ROM, Normal Inspection. absent: Lymphadenopathy - Respiratory Exam Respiratory Exam: Clear to Ausculation Bilateral, NORMAL BREATHING PATTERN - Cardiovascular Exam Cardiovascular Exam: REGULAR RHYTHM, RRR, +S1, +S2. absent: Murmur - GI/Abdominal Exam GI & Abdominal Exam: Soft, Normal Bowel Sounds. absent: Tenderness - Extremities Exam Extremities Exam: Full ROM, Normal Capillary Refill, Normal Inspection. 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), Right Upper Extremity: 5, Left Lower Extremity: 5, Right Lower Extremity: 5 - Psychiatric Exam Psychiatric exam: Normal Affect, Normal Mood - Skin Skin Exam: Dry, Intact, Normal Color, Warm Assessment and Plan (1) CVA (cerebral vascular accident) Status: Acute (2) Chronic atrial fibrillation Status: Acute (3) DVT prophylaxis Status: Acute (4) Diabetes type 2, uncontrolled Status: Acute (5) HTN (hypertension) Status: Acute (6) Intracerebral hematoma Status: Acute - Assessment and Plan (Free Text) Assessment: (1) CVA (cerebral vascular accident) Assessment and Plan: neuro st/pt/ot dr mendez asa x2 wks until back on eliquis per dr abreu -start in am Status: Acute Priority: High (2) Chronic atrial fibrillation Assessment and Plan: asa x 2 wk then eliquis rate control cardio Status: Acute (3) DVT prophylaxis Assessment and Plan: scd nad ae hose ambualtion eliquis in 2 wks Status: Acute (4) Diabetes type 2, uncontrolled Assessment and Plan: riss home meds, fsbg diet control Status: Acute (5) HTN (hypertension) Assessment and Plan: nacl lisinopril close monitor and tight control Status: Acute (6) Intracerebral hematoma Assessment and Plan: hold eliquis x 2wks Status: Acute
[2016-11-30] MEDS: Pantoprazole 20 mg EC Tab PO SCH (08:45)
[2016-11-30] MEDS: GlipiZIDE 2.5 mg SR Tab PO SCH (08:45)
--- NOTE | 2016-11-30 16:17 | CP.PCM.PN ---
Subjective - Date & Time of Evaluation Date of Evaluation: 11/30/16 Time of Evaluation: 16:16 - Subjective Subjective: Patient seen in room with present able to ambulate 150' with SC and continues to make progress denies sob/cp making good gains continue current care Objective - Vital Signs/Intake and Output Vital Signs (last 24 hours): Temp Pulse Resp BP Pulse Ox 97.0 F L 68 20 102/60 95 11/30/16 09:06 11/30/16 14:59 11/30/16 09:06 11/30/16 09:06 11/30/16 14:59 - Medications Medications: Current Medications Artificial Tears (Artificial Tears) 2 drop OU BID PRN PRN Reason: Dry eyes Last Admin: 11/20/16 14:07 Dose: 2 drop Aspirin (Aspirin Chewable) 81 mg PO DAILY [facility] Last Admin: 11/30/16 08:45 Dose: 81 mg Bisoprolol Fumarate (Zebeta) 5 mg PO DAILY [facility] Last Admin: 11/30/16 08:46 Dose: Not Given Docusate Sodium (Colace) 100 mg PO BID [facility] Last Admin: 11/30/16 08:46 Dose: 100 mg Glipizide (Glucotrol Xl) 2.5 mg PO BRK [facility] Last Admin: 11/30/16 08:45 Dose: 2.5 mg Insulin Human Regular (Humulin R) 0 units SC ACHS [facility] PRN Reason: Protocol Last Admin: 11/30/16 12:24 Dose: 2 unit Lisinopril (Zestril) 5 mg PO HS [facility] Last Admin: 11/29/16 21:52 Dose: 5 mg Nateglinide (Starlix) 120 mg PO BID [facility] Last Admin: 11/30/16 08:45 Dose: 120 mg Pantoprazole Sodium (Protonix Ec Tab) 20 mg PO DAILY [facility] Last Admin: 11/30/16 08:45 Dose: 20 mg Sodium Chloride (Sodium Chloride Tab) 1 gm PO DAILY [facility] Last Admin: 11/30/16 08:45 Dose: 1 gm - Labs Labs: 11/20/16 06:00 11/20/16 06:00
[2016-12-01] MEDS: Insulin Regular 100 units/ml SC SCH ×4 (06:41→21:00)
[2016-12-01 07:57] LABS: BASO # 0.1 K/uL (0.0-0.2); BASO % 0.7 % (0.0-2.0); EOS # 0.4 K/uL (0.0-0.7); HEMATOCRIT 41.6 % (35.0-51.0); LYMPH # 2.2 K/uL (1.0-4.3); LYMPH % 28.2 % (20.0-40.0); MEAN CELL VOLUME 94.2 fl (80.0-94.0); MEAN CORPUSCULAR HEMOGLOBIN 31.4 pg (27.0-31.0); MEAN CORPUSCULAR HGB CONC 33.4 g/dL (33.0-37.0); MONO # 0.5 K/uL (0.0-0.8); MONO % 6.3 % (0.0-10.0); NEUT # 4.7 K/uL (1.8-7.0); NEUT % 59.8 % (50.0-75.0); RED CELL DISTRIBUTION WIDTH 15.5 % (11.5-14.5); WHITE BLOOD COUNT 7.9 K/uL (4.8-10.8)
[2016-12-01 08:20] LABS: ALKALINE PHOSPHATASE 67 U/L (38-126); ALT/SGPT 24 U/L (21-72); AST/SGOT 38 U/L (17-59); BILIRUBIN,TOTAL 0.5 mg/dl (0.2-1.3); BLOOD UREA NITROGEN 23 mg/dl (9-20); CALCIUM 9.3 mg/dL (8.4-10.2); CARBON DIOXIDE 28 mmol/L (22-30); CHLORIDE 104 mmol/L (98-107); GFR AFRICAN-AMERICAN > 60; GLUCOSE,RANDOM 112 mg/dL (75-110); POTASSIUM 3.8 MMOL/L (3.6-5.0); SODIUM 141 mmol/l (132-148); TOTAL PROTEIN 6.5 G/DL (6.3-8.2)
[2016-12-01] MEDS: Pantoprazole 20 mg EC Tab PO SCH (08:38)
[2016-12-01] MEDS: GlipiZIDE 2.5 mg SR Tab PO SCH (08:38)
[2016-12-01 08:47] LABS: PARTIAL THROMBOPLASTIN TIME 26.6 SECONDS (23.3-32.5)
--- NOTE | 2016-12-01 16:09 | CP.PCM.DIS ---
Provider - Provider Date of Admission: 11/19/16 20:44 Attending physician: Charity Bird MD Time Spent in preparation of Discharge (in minutes): 45 Diagnosis - Discharge Diagnosis (1) CVA (cerebral vascular accident) Status: Acute Priority: High Hospital Course - Lab Results Lab Results: Most Recent Lab Values WBC 7.9 K/uL (4.8-10.8) 12/01/16 07:00 RBC 4.41 Mil/uL (4.40-5.90) 12/01/16 07:00 Hgb 13.9 g/dL (12.0-18.0) 12/01/16 07:00 Hct 41.6 % (35.0-51.0) 12/01/16 07:00 MCV 94.2 fl (80.0-94.0) H D 12/01/16 07:00 MCH 31.4 pg (27.0-31.0) H 12/01/16 07:00 MCHC 33.4 g/dL (33.0-37.0) 12/01/16 07:00 RDW 15.5 % (11.5-14.5) H 12/01/16 07:00 Plt Count 316 K/uL (130-400) 12/01/16 07:00 MPV 9.0 fl (7.2-11.7) 12/01/16 07:00 Neut % (Auto) 59.8 % (50.0-75.0) 12/01/16 07:00 Lymph % (Auto) 28.2 % (20.0-40.0) 12/01/16 07:00 [place] % (Auto) 6.3 % (0.0-10.0) 12/01/16 07:00 Eos % (Auto) 5.0 % (0.0-4.0) H 12/01/16 07:00 Baso % (Auto) 0.7 % (0.0-2.0) 12/01/16 07:00 Neut # 4.7 K/uL (1.8-7.0) 12/01/16 07:00 Lymph # 2.2 K/uL (1.0-4.3) 12/01/16 07:00 [place] # 0.5 K/uL (0.0-0.8) 12/01/16 07:00 Eos # 0.4 K/uL (0.0-0.7) 12/01/16 07:00 Baso # 0.1 K/uL (0.0-0.2) 12/01/16 07:00 PT 10.8 SECONDS (9.6-11.2) 12/01/16 07:00 INR 1.04 (0.92-1.08) 12/01/16 07:00 APTT 26.6 SECONDS (23.3-32.5) 12/01/16 07:00 Sodium 141 mmol/l (132-148) 12/01/16 07:00 Potassium 3.8 MMOL/L (3.6-5.0) 12/01/16 07:00 Chloride 104 mmol/L (98-107) 12/01/16 07:00 Carbon Dioxide 28 mmol/L (22-30) 12/01/16 07:00 Anion Gap 14 (10-20) 12/01/16 07:00 BUN 23 mg/dl (9-20) H 12/01/16 07:00 Creatinine 0.9 mg/dL (0.8-1.5) 12/01/16 07:00 Est GFR ( Amer) > 60 12/01/16 07:00 Est GFR (Non-Af Amer) > 60 12/01/16 07:00 POC Glucose (mg/dL) 157 mg/dL (65-110) H 12/01/16 15:44 Random Glucose 112 mg/dL (75-110) H 12/01/16 07:00 Calcium 9.3 mg/dL (8.4-10.2) 12/01/16 07:00 Total Bilirubin 0.5 mg/dl (0.2-1.3) 12/01/16 07:00 AST 38 U/L (17-59) 12/01/16 07:00 ALT 24 U/L (21-72) 12/01/16 07:00 Alkaline Phosphatase 67 U/L (38-126) 12/01/16 07:00 Total Protein 6.5 G/DL (6.3-8.2) 12/01/16 07:00 Albumin 3.3 g/dL (3.5-5.0) L 12/01/16 07:00 Globulin 3.2 gm/dL (2.2-3.9) 12/01/16 07:00 Albumin/Globulin Ratio 1.0 (1.0-2.1) 12/01/16 07:00 Discharge Exam - Head Exam Head Exam: ATRAUMATIC, NORMAL INSPECTION, NORMOCEPHALIC Discharge Plan - Discharge Medications Prescriptions: Aspirin [Aspirin Chewable] 81 mg PO QOTHERDAY #30 chew Docusate [Colace] 100 mg PO BID #20 cap Sodium Chloride [Sodium Chloride Tab] 1 gm PO DAILY #14 tab - Follow Up Plan Condition: GOOD Disposition: HOME/ ROUTINE Instructions: Lisinopril (By mouth), Glipizide (By mouth), Bisoprolol (By mouth ), Pantoprazole (By mouth), Nateglinide (By mouth), Sodium Chloride (By mouth), Hemorrhagic Stroke (DC) Additional Instructions: Please consult with Dr. Marie first before re-starting Eliquis. asa qod. doing well. moving all ext. no numbnes/tingling weakness. all instructions provided to . f/u pmd. cardio, neuor 1 wk. rted prn, mm final dx-cva w/ hemorrhagic conversion, repeat ct 2 wks. movinga ll ext 5/ Clinical Quality Measures - CQM - Stroke Antithrombotic Prescribed: Yes Anticoagulation Prescribed for Atrial Flutter, Atrial Fibrillation and History of:: Medical Contraindication Present Contranindication/Reason for not providing: Risk for Bleeding Statin prescribed: Medical Contraindication Present Contraindication/Reason for not providing: Other If Other selected, reason for not providing: Intracerebral hemorrhage
[2016-12-02] MEDS: Insulin Regular 100 units/ml SC SCH ×4 (06:30→22:00)
[2016-12-02] MEDS: GlipiZIDE 2.5 mg SR Tab PO SCH (08:36)
[2016-12-02] MEDS: Pantoprazole 20 mg EC Tab PO SCH (08:36)
--- NOTE | 2016-12-02 14:28 | CP.PCM.PN ---
Subjective - Date & Time of Evaluation Date of Evaluation: 12/02/16 Time of Evaluation: 14:26 - Subjective Subjective: pt doing well, sitting in wh. no f/c, n/v/d. moving all ext well, 5/5. girps strong b/l Objective - Vital Signs/Intake and Output Vital Signs (last 24 hours): Temp Pulse Resp BP Pulse Ox 97.3 F L 99 H 20 111/57 L 97 12/02/16 08:10 12/02/16 08:10 12/02/16 08:10 12/02/16 08:10 12/02/16 08:10 - Medications Medications: Current Medications Acetaminophen (Tylenol 325mg Tab) 650 mg PO Q4 PRN PRN Reason: .for pain scale (4-10) Last Admin: 12/01/16 19:57 Dose: 650 mg Artificial Tears (Artificial Tears) 2 drop OU BID PRN PRN Reason: Dry eyes Last Admin: 11/20/16 14:07 Dose: 2 drop Aspirin (Aspirin Chewable) 81 mg PO DAILY [facility] Last Admin: 12/02/16 08:36 Dose: 81 mg Bisoprolol Fumarate (Zebeta) 5 mg PO DAILY [facility] Last Admin: 12/02/16 08:36 Dose: Not Given Docusate Sodium (Colace) 100 mg PO BID [facility] Last Admin: 12/02/16 08:36 Dose: 100 mg Glipizide (Glucotrol Xl) 2.5 mg PO BRK [facility] Last Admin: 12/02/16 08:36 Dose: 2.5 mg Insulin Human Regular (Humulin R) 0 units SC ACHS [facility] PRN Reason: Protocol Last Admin: 12/02/16 12:22 Dose: 2 unit Lisinopril (Zestril) 5 mg PO HS [facility] Last Admin: 12/01/16 22:04 Dose: Not Given Nateglinide (Starlix) 120 mg PO BID [facility] Last Admin: 12/02/16 08:35 Dose: 120 mg Pantoprazole Sodium (Protonix Ec Tab) 20 mg PO DAILY [facility] Last Admin: 12/02/16 08:36 Dose: 20 mg Sodium Chloride (Sodium Chloride Tab) 1 gm PO DAILY [facility] Last Admin: 12/02/16 08:35 Dose: 1 gm - Labs Labs: 12/01/16 07:00 12/01/16 07:00 PT 10.8 SECONDS (9.6-11.2) 12/01/16 07:00 INR 1.04 (0.92-1.08) 12/01/16 07:00 APTT 26.6 SECONDS (23.3-32.5) 12/01/16 07:00 - Constitutional Appears: Well, Non-toxic, No Acute Distress - Head Exam Head Exam: ATRAUMATIC, NORMAL INSPECTION, NORMOCEPHALIC - Eye Exam Eye Exam: EOMI, Normal appearance, PERRL Pupil Exam: NORMAL ACCOMODATION, PERRL - ENT Exam ENT Exam: Mucous Membranes Moist, Normal Exam - Neck Exam Neck Exam: Full ROM, Normal Inspection. absent: Lymphadenopathy - Respiratory Exam Respiratory Exam: Clear to Ausculation Bilateral, NORMAL BREATHING PATTERN - Cardiovascular Exam Cardiovascular Exam: REGULAR RHYTHM, RRR, +S1, +S2. absent: Murmur - GI/Abdominal Exam GI & Abdominal Exam: Soft, Normal Bowel Sounds. absent: Tenderness - Extremities Exam Extremities Exam: Full ROM, Normal Capillary Refill, Normal Inspection. absent : Joint Swelling, Pedal Edema - Back Exam Back Exam: NORMAL INSPECTION - Neurological Exam Neurological Exam: Alert, Awake, CN II-XII Intact, Normal Gait, Oriented x3 - Psychiatric Exam Psychiatric exam: Normal Affect, Normal Mood - Skin Skin Exam: Dry, Intact, Normal Color, Warm Assessment and Plan (1) CVA (cerebral vascular accident) Status: Acute (2) Chronic atrial fibrillation Status: Acute (3) DVT prophylaxis Status: Acute (4) Diabetes type 2, uncontrolled Status: Acute (5) HTN (hypertension) Status: Acute (6) Intracerebral hematoma Status: Acute - Assessment and Plan (Free Text) Assessment: (1) CVA (cerebral vascular accident) Assessment and Plan: neuro st/pt/ot dr mendez asa x2 wks until back on eliquis for 2 more weeks per neuro Status: Acute Priority: High (2) Chronic atrial fibrillation Assessment and Plan: asa x 2 wk then eliquis rate control cardio Status: Acute (3) DVT prophylaxis Assessment and Plan: scd nad ae hose ambualtion eliquis in 2 wks Status: Acute (4) Diabetes type 2, uncontrolled Assessment and Plan: riss home meds, fsbg diet control Status: Acute (5) HTN (hypertension) Assessment and Plan: nacl lisinopril close monitor and tight control Status: Acute (6) Intracerebral hematoma Assessment and Plan: hold eliquis x 2more wks Status: Acute
--- NOTE | 2016-12-02 15:31 | CP.PCM.PN ---
Subjective - Date & Time of Evaluation Date of Evaluation: 12/02/16 Time of Evaluation: 15:31 - Subjective Subjective: patient seen in room doing well able to ambulate now 200' with RW and supervision continue current care Objective - Vital Signs/Intake and Output Vital Signs (last 24 hours): Temp Pulse Resp BP Pulse Ox 97.3 F L 70 20 111/57 L 97 12/02/16 08:10 12/02/16 14:38 12/02/16 08:10 12/02/16 08:10 12/02/16 14:38 - Medications Medications: Current Medications Acetaminophen (Tylenol 325mg Tab) 650 mg PO Q4 PRN PRN Reason: .for pain scale (4-10) Last Admin: 12/01/16 19:57 Dose: 650 mg Artificial Tears (Artificial Tears) 2 drop OU BID PRN PRN Reason: Dry eyes Last Admin: 11/20/16 14:07 Dose: 2 drop Aspirin (Aspirin Chewable) 81 mg PO DAILY [facility] Last Admin: 12/02/16 08:36 Dose: 81 mg Bisoprolol Fumarate (Zebeta) 5 mg PO DAILY [facility] Last Admin: 12/02/16 08:36 Dose: Not Given Docusate Sodium (Colace) 100 mg PO BID [facility] Last Admin: 12/02/16 08:36 Dose: 100 mg Glipizide (Glucotrol Xl) 2.5 mg PO BRK [facility] Last Admin: 12/02/16 08:36 Dose: 2.5 mg Insulin Human Regular (Humulin R) 0 units SC ACHS [facility] PRN Reason: Protocol Last Admin: 12/02/16 12:22 Dose: 2 unit Lisinopril (Zestril) 5 mg PO HS [facility] Last Admin: 12/01/16 22:04 Dose: Not Given Nateglinide (Starlix) 120 mg PO BID [facility] Last Admin: 12/02/16 08:35 Dose: 120 mg Pantoprazole Sodium (Protonix Ec Tab) 20 mg PO DAILY [facility] Last Admin: 12/02/16 08:36 Dose: 20 mg Sodium Chloride (Sodium Chloride Tab) 1 gm PO DAILY [facility] Last Admin: 12/02/16 08:35 Dose: 1 gm - Labs Labs: 12/01/16 07:00 12/01/16 07:00 PT 10.8 SECONDS (9.6-11.2) 12/01/16 07:00 INR 1.04 (0.92-1.08) 12/01/16 07:00 APTT 26.6 SECONDS (23.3-32.5) 12/01/16 07:00
--- NOTE | 2016-12-02 15:58 | CP.PCM.PN ---
Subjective - Date & Time of Evaluation Date of Evaluation: 12/02/16 Time of Evaluation: 15:56 - Subjective Subjective: Mr. Kim was seen and examined today at bedside. He was found in NAD. He denied headache, visual changes, nausea, chest pain, shortness of breath, new weakness or any new sensory changes. Objective - Vital Signs/Intake and Output Vital Signs (last 24 hours): Temp Pulse Resp BP Pulse Ox 97.3 F L 70 20 111/57 L 97 12/02/16 08:10 12/02/16 14:38 12/02/16 08:10 12/02/16 08:10 12/02/16 14:38 - Medications Medications: Current Medications Acetaminophen (Tylenol 325mg Tab) 650 mg PO Q4 PRN PRN Reason: .for pain scale (4-10) Last Admin: 12/01/16 19:57 Dose: 650 mg Artificial Tears (Artificial Tears) 2 drop OU BID PRN PRN Reason: Dry eyes Last Admin: 11/20/16 14:07 Dose: 2 drop Aspirin (Aspirin Chewable) 81 mg PO DAILY [facility] Last Admin: 12/02/16 08:36 Dose: 81 mg Bisoprolol Fumarate (Zebeta) 5 mg PO DAILY [facility] Last Admin: 12/02/16 08:36 Dose: Not Given Docusate Sodium (Colace) 100 mg PO BID [facility] Last Admin: 12/02/16 08:36 Dose: 100 mg Glipizide (Glucotrol Xl) 2.5 mg PO BRK [facility] Last Admin: 12/02/16 08:36 Dose: 2.5 mg Insulin Human Regular (Humulin R) 0 units SC ACHS [facility] PRN Reason: Protocol Last Admin: 12/02/16 12:22 Dose: 2 unit Lisinopril (Zestril) 5 mg PO HS [facility] Last Admin: 12/01/16 22:04 Dose: Not Given Nateglinide (Starlix) 120 mg PO BID [facility] Last Admin: 12/02/16 08:35 Dose: 120 mg Pantoprazole Sodium (Protonix Ec Tab) 20 mg PO DAILY [facility] Last Admin: 12/02/16 08:36 Dose: 20 mg Sodium Chloride (Sodium Chloride Tab) 1 gm PO DAILY [facility] Last Admin: 12/02/16 08:35 Dose: 1 gm - Labs Labs: 12/01/16 07:00 12/01/16 07:00 PT 10.8 SECONDS (9.6-11.2) 12/01/16 07:00 INR 1.04 (0.92-1.08) 12/01/16 07:00 APTT 26.6 SECONDS (23.3-32.5) 12/01/16 07:00 - Constitutional Appears: Well - Head Exam Head Exam: ATRAUMATIC, NORMAL INSPECTION, NORMOCEPHALIC - Eye Exam Eye Exam: EOMI, Normal appearance, PERRL - ENT Exam ENT Exam: Mucous Membranes Moist, Normal Exam - Neck Exam Neck Exam: Full ROM, Normal Inspection. absent: Lymphadenopathy - Respiratory Exam Respiratory Exam: Clear to Ausculation Bilateral, NORMAL BREATHING PATTERN - Cardiovascular Exam Cardiovascular Exam: REGULAR RHYTHM, +S1, +S2. absent: Murmur - Neurological Exam Neurological Exam: Alert, Awake, CN II-XII Intact, Normal Gait, Oriented x3 Neuro motor strength exam: Left Upper Extremity: 4, Right Upper Extremity: 5, Left Lower Extremity: 4, Right Lower Extremity: 5 - Psychiatric Exam Psychiatric exam: Normal Affect, Normal Mood - Skin Skin Exam: Dry, Intact, Normal Color, Warm Assessment and Plan (1) CVA (cerebral vascular accident) Assessment & Plan: Continue current management and medications along with acute PT/OT. I recommend obtaining a new CT head on Monday the . Status: Acute
[2016-12-03] MEDS: Insulin Regular 100 units/ml SC SCH ×5 (06:42→21:28)
[2016-12-03] MEDS: Pantoprazole 20 mg EC Tab PO SCH (08:28)
[2016-12-03] MEDS: GlipiZIDE 2.5 mg SR Tab PO SCH (08:29)
[2016-12-04] MEDS: Insulin Regular 100 units/ml SC SCH ×4 (06:30→21:00)
--- NOTE | 2016-12-04 08:26 | CP.PCM.PN ---
Subjective - Date & Time of Evaluation Date of Evaluation: 12/04/16 Time of Evaluation: 08:26 - Subjective Subjective: doing well no complaints. moving all ext. per daughter pt using left hand more. 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 no f/c, nv//d for dc 1 wk Objective - Vital Signs/Intake and Output Vital Signs (last 24 hours): Temp Pulse Resp BP Pulse Ox 97.7 F 91 H 18 93/52 L 97 12/04/16 07:42 12/04/16 07:42 12/04/16 07:42 12/04/16 07:42 12/04/16 07:42 - Medications Medications: Current Medications Acetaminophen (Tylenol 325mg Tab) 650 mg PO Q4 PRN PRN Reason: .for pain scale (4-10) Last Admin: 12/01/16 19:57 Dose: 650 mg Artificial Tears (Artificial Tears) 2 drop OU BID PRN PRN Reason: Dry eyes Last Admin: 11/20/16 14:07 Dose: 2 drop Aspirin (Aspirin Chewable) 81 mg PO DAILY [facility] Last Admin: 12/03/16 08:28 Dose: 81 mg Bisoprolol Fumarate (Zebeta) 5 mg PO DAILY [facility] Last Admin: 12/03/16 08:29 Dose: Not Given Docusate Sodium (Colace) 100 mg PO BID [facility] Last Admin: 12/03/16 16:52 Dose: 100 mg Glipizide (Glucotrol Xl) 2.5 mg PO BRK [facility] Last Admin: 12/03/16 08:29 Dose: 2.5 mg Insulin Human Regular (Humulin R) 0 units SC ACHS [facility] PRN Reason: Protocol Last Admin: 12/04/16 06:30 Dose: Not Given Lisinopril (Zestril) 5 mg PO HS [facility] Last Admin: 12/03/16 21:09 Dose: Not Given Nateglinide (Starlix) 120 mg PO BID [facility] Last Admin: 12/03/16 16:52 Dose: 120 mg Pantoprazole Sodium (Protonix Ec Tab) 20 mg PO DAILY [facility] Last Admin: 12/03/16 08:28 Dose: 20 mg Sodium Chloride (Sodium Chloride Tab) 1 gm PO DAILY [facility] Last Admin: 12/03/16 08:28 Dose: 1 gm - Labs Labs: 12/01/16 07:00 12/01/16 07:00 PT 10.8 SECONDS (9.6-11.2) 12/01/16 07:00 INR 1.04 (0.92-1.08) 12/01/16 07:00 APTT 26.6 SECONDS (23.3-32.5) 12/01/16 07:00 - Constitutional Appears: Well, Non-toxic, No Acute Distress - Head Exam Head Exam: ATRAUMATIC, NORMAL INSPECTION, NORMOCEPHALIC - Eye Exam Eye Exam: EOMI, Normal appearance, PERRL Pupil Exam: NORMAL ACCOMODATION, PERRL - ENT Exam ENT Exam: Mucous Membranes Moist, Normal Exam - Neck Exam Neck Exam: Full ROM, Normal Inspection. absent: Lymphadenopathy - Respiratory Exam Respiratory Exam: Clear to Ausculation Bilateral, NORMAL BREATHING PATTERN - Cardiovascular Exam Cardiovascular Exam: Irregular Rhythm, +S1, +S2. absent: Murmur - GI/Abdominal Exam GI & Abdominal Exam: Soft, Normal Bowel Sounds. absent: Tenderness - Extremities Exam Extremities Exam: Full ROM, Normal Capillary Refill, Normal Inspection. absent : Joint Swelling, Pedal Edema - Back Exam Back Exam: NORMAL INSPECTION - Neurological Exam Neurological Exam: Abnormal Gait, Alert, Awake, CN II-XII Intact, Oriented x3 Neuro motor strength exam: Left Upper Extremity: 4 (4-5), Right Upper Extremity : 5, Left Lower Extremity: 5, Right Lower Extremity: 5 - Psychiatric Exam Psychiatric exam: Normal Affect, Normal Mood - Skin Skin Exam: Dry, Intact, Normal Color, Warm Assessment and Plan (1) CVA (cerebral vascular accident) Status: Acute (2) Chronic atrial fibrillation Status: Acute (3) DVT prophylaxis Status: Acute (4) Diabetes type 2, uncontrolled Status: Acute (5) HTN (hypertension) Status: Acute (6) Intracerebral hematoma Status: Acute - Assessment and Plan (Free Text) Assessment: (1) CVA (cerebral vascular accident) Assessment and Plan: neuro st/pt/ot dr mendez asa x2 wks until back on eliquis for 2 more weeks per neuro Status: Acute Priority: High (2) Chronic atrial fibrillation Assessment and Plan: asa x 2 wk then eliquis rate control cardio Status: Acute (3) DVT prophylaxis Assessment and Plan: scd nad ae hose ambualtion eliquis in 2 wks Status: Acute (4) Diabetes type 2, uncontrolled Assessment and Plan: riss home meds, fsbg diet control Status: Acute (5) HTN (hypertension) Assessment and Plan: nacl lisinopril close monitor and tight control Status: Acute (6) Intracerebral hematoma Assessment and Plan: hold eliquis x 2more wks Status: Acute
[2016-12-04] MEDS: Pantoprazole 20 mg EC Tab PO SCH (08:51)
[2016-12-04] MEDS: GlipiZIDE 2.5 mg SR Tab PO SCH (08:54)
[2016-12-05] MEDS: Insulin Regular 100 units/ml SC SCH ×4 (06:30→21:02)
[2016-12-05] MEDS: GlipiZIDE 2.5 mg SR Tab PO SCH (08:49)
[2016-12-05] MEDS: Pantoprazole 20 mg EC Tab PO SCH (08:49)
--- NOTE | 2016-12-05 15:31 | CP.PCM.PN ---
Subjective - Date & Time of Evaluation Date of Evaluation: 12/05/16 Time of Evaluation: 15:28 - Subjective Subjective: Patient seen in room denies sob noted some chest pain in PT during the UE erg but now feeling ok no dizziness ambulating much better 200' with RW and supervision team conf tomorrow for d/c planning Objective - Vital Signs/Intake and Output Vital Signs (last 24 hours): Temp Pulse Resp BP Pulse Ox 97.2 F L 62 19 123/71 96 12/05/16 08:49 12/05/16 11:54 12/05/16 08:49 12/05/16 08:49 12/05/16 11:54 - Medications Medications: Current Medications Acetaminophen (Tylenol 325mg Tab) 650 mg PO Q4 PRN PRN Reason: .for pain scale (4-10) Last Admin: 12/01/16 19:57 Dose: 650 mg Artificial Tears (Artificial Tears) 2 drop OU BID PRN PRN Reason: Dry eyes Last Admin: 11/20/16 14:07 Dose: 2 drop Aspirin (Aspirin Chewable) 81 mg PO DAILY [facility] Last Admin: 12/05/16 08:49 Dose: 81 mg Bisoprolol Fumarate (Zebeta) 5 mg PO DAILY [facility] Last Admin: 12/05/16 08:49 Dose: 5 mg Docusate Sodium (Colace) 100 mg PO BID [facility] Last Admin: 12/05/16 08:49 Dose: 100 mg Glipizide (Glucotrol Xl) 2.5 mg PO BRK [facility] Last Admin: 12/05/16 08:49 Dose: 2.5 mg Insulin Human Regular (Humulin R) 0 units SC ACHS [facility] PRN Reason: Protocol Last Admin: 12/05/16 12:29 Dose: 2 unit Lisinopril (Zestril) 5 mg PO HS [facility] Last Admin: 12/04/16 22:16 Dose: 5 mg Nateglinide (Starlix) 120 mg PO BID [facility] Last Admin: 12/05/16 08:48 Dose: 120 mg Pantoprazole Sodium (Protonix Ec Tab) 20 mg PO DAILY [facility] Last Admin: 12/05/16 08:49 Dose: 20 mg Sodium Chloride (Sodium Chloride Tab) 1 gm PO DAILY [facility] Last Admin: 12/05/16 08:49 Dose: 1 gm - Labs Labs: 12/01/16 07:00 12/01/16 07:00 PT 10.8 SECONDS (9.6-11.2) 12/01/16 07:00 INR 1.04 (0.92-1.08) 12/01/16 07:00 APTT 26.6 SECONDS (23.3-32.5) 12/01/16 07:00
[2016-12-06] MEDS: Insulin Regular 100 units/ml SC SCH ×4 (07:33→22:00)
--- NOTE | 2016-12-06 07:38 | CP.PCM.PN ---
Subjective - Date & Time of Evaluation Date of Evaluation: 12/06/16 Time of Evaluation: 07:38 - Subjective Subjective: improving well, lue improving and cover stripper stronger. no f/c, n/v/d. for dc end of week. Objective - Vital Signs/Intake and Output Vital Signs (last 24 hours): Temp Pulse Resp BP Pulse Ox 97.9 F 87 20 128/71 95 12/06/16 07:19 12/06/16 07:19 12/06/16 07:19 12/06/16 07:19 12/05/16 19:48 - Medications Medications: Current Medications Acetaminophen (Tylenol 325mg Tab) 650 mg PO Q4 PRN PRN Reason: .for pain scale (4-10) Last Admin: 12/01/16 19:57 Dose: 650 mg Artificial Tears (Artificial Tears) 2 drop OU BID PRN PRN Reason: Dry eyes Last Admin: 11/20/16 14:07 Dose: 2 drop Aspirin (Aspirin Chewable) 81 mg PO DAILY [facility] Last Admin: 12/05/16 08:49 Dose: 81 mg Bisoprolol Fumarate (Zebeta) 5 mg PO DAILY [facility] Last Admin: 12/05/16 08:49 Dose: 5 mg Docusate Sodium (Colace) 100 mg PO BID [facility] Last Admin: 12/05/16 17:02 Dose: 100 mg Glipizide (Glucotrol Xl) 2.5 mg PO BRK [facility] Last Admin: 12/05/16 08:49 Dose: 2.5 mg Insulin Human Regular (Humulin R) 0 units SC ACHS [facility] PRN Reason: Protocol Last Admin: 12/06/16 07:33 Dose: Not Given Lisinopril (Zestril) 5 mg PO HS [facility] Last Admin: 12/05/16 21:01 Dose: 5 mg Nateglinide (Starlix) 120 mg PO BID [facility] Last Admin: 12/05/16 17:03 Dose: 120 mg Pantoprazole Sodium (Protonix Ec Tab) 20 mg PO DAILY [facility] Last Admin: 12/05/16 08:49 Dose: 20 mg Sodium Chloride (Sodium Chloride Tab) 1 gm PO DAILY [facility] Last Admin: 12/05/16 08:49 Dose: 1 gm - Labs Labs: 12/01/16 07:00 12/01/16 07:00 PT 10.8 SECONDS (9.6-11.2) 12/01/16 07:00 INR 1.04 (0.92-1.08) 12/01/16 07:00 APTT 26.6 SECONDS (23.3-32.5) 12/01/16 07:00 - Constitutional Appears: Well, Non-toxic, No Acute Distress - Head Exam Head Exam: ATRAUMATIC, NORMAL INSPECTION, NORMOCEPHALIC - Eye Exam Eye Exam: EOMI, Normal appearance, PERRL Pupil Exam: NORMAL ACCOMODATION, PERRL - ENT Exam ENT Exam: Mucous Membranes Moist, Normal Exam - Neck Exam Neck Exam: Full ROM, Normal Inspection. absent: Lymphadenopathy - Respiratory Exam Respiratory Exam: Clear to Ausculation Bilateral, NORMAL BREATHING PATTERN - Cardiovascular Exam Cardiovascular Exam: REGULAR RHYTHM, RRR, +S1, +S2. absent: Murmur - GI/Abdominal Exam GI & Abdominal Exam: Soft, Normal Bowel Sounds. absent: Tenderness - Extremities Exam Extremities Exam: Full ROM, Normal Capillary Refill, Normal Inspection. absent : Joint Swelling, Pedal Edema - Back Exam Back Exam: NORMAL INSPECTION - Neurological Exam Neurological Exam: Alert, Awake, CN II-XII Intact, Normal Gait, Oriented x3 Neuro motor strength exam: Left Upper Extremity: 5 (4-5), Right Upper Extremity : 5, Left Lower Extremity: 5, Right Lower Extremity: 5 - Psychiatric Exam Psychiatric exam: Normal Affect, Normal Mood - Skin Skin Exam: Dry, Intact, Normal Color, Warm Assessment and Plan (1) CVA (cerebral vascular accident) Status: Acute (2) Chronic atrial fibrillation Status: Acute (3) DVT prophylaxis Status: Acute (4) Diabetes type 2, uncontrolled Status: Acute (5) HTN (hypertension) Status: Acute (6) Intracerebral hematoma Status: Acute - Assessment and Plan (Free Text) Assessment: (1) CVA (cerebral vascular accident) Assessment and Plan: neuro st/pt/ot dr mendez asa x2 wks until back on eliquis for 2 more weeks per neuro Status: Acute Priority: High (2) Chronic atrial fibrillation Assessment and Plan: asa x 2 wk then eliquis rate control cardio Status: Acute (3) DVT prophylaxis Assessment and Plan: scd nad ae hose ambualtion eliquis in 2 wks Status: Acute (4) Diabetes type 2, uncontrolled Assessment and Plan: riss home meds, fsbg diet control Status: Acute (5) HTN (hypertension) Assessment and Plan: nacl lisinopril close monitor and tight control Status: Acute (6) Intracerebral hematoma Assessment and Plan: hold eliquis x 2more wks Status: Acute
[2016-12-06] MEDS: Pantoprazole 20 mg EC Tab PO SCH (08:54)
[2016-12-06] MEDS: GlipiZIDE 2.5 mg SR Tab PO SCH (08:54)
--- NOTE | 2016-12-06 13:11 | PSY.TMCNF ---
Nursing - Vital Signs Vital Signs (Last 8 hours): Vital Signs 12/06/16 12/06/16 07:19 09:06 Temperature 97.9 F 97.2 F L Pulse Rate 87 84 Respiratory 20 20 Rate Blood Pressure 128/71 124/58 L O2 Sat by Pulse 97 Oximetry Pain: 0 - Precautions: Precautions: Fall Prevention, Aspiration - Medications/Other Issues Comment: Safety Precautions - Consults Comment: Dr. Albert, Dr. Moore - Toileting Toileting: Minimal Assistance - Bladder Management Bladder Pattern: Normal Voiding Method: Urinal - Bowel Management Bowel Pattern: Normal Bowel Management: Supervision Frequency of Accidents: 0 - Transfers Transfers: Minimal Assistance - ADL's ADL's: Moderate Assistance - Pain Management Comments: Denies pain - Patient/Family Teaching Comments: CARE POST CVA AND SAFETY PRECAUTIONS - Goals/Time Frame Comments: PER MULTIDISCIPLINARY CARE PLAN GOALS Physical Therapy - Bed Mobility Bed Mobility: Supervision - Transfers Wheelchair to Mat: Verbal Cues, Contact Guard Sit to Stand: Supervision, Verbal Cues - Ambulation Level of Assistance: Supervision, Verbal Cues, Contact Guard Distance (ft.): 200 Assistive Devices: N/A, Rolling Walker Comment: -CGA without device; close S with RW. -practiced community mobility with RW and close S/CGA - Stair Negotiation Stairs: Level of Assistance: Supervision, Verbal Cues Number of Stairs: 12 Handrails: Bilateral Stairs: Assistive Devices: Left Handrail, Right Handrail - Standing Balance Static Stand: Supervision Dynamic Stand: Contact Guard Assist, Minimal Assistance - Pain Pain (assessed during therapy session): 0 - Insight/Carryover Insight/Carryover: Fair - Patient/Family Education Comment: Pt and family education on proper techniques and increase safety during functional mobility trainng - Assessment/Plan Assessment: Pt participates in recreation therapy sessions when agreeable. Pt's participation is limited by fatigue and decrease arousal level. When pt is awake , he will continue to close his eyes and requires verbal cues for attention to task. Pt presents with decrease carryover of task rules and requires extended time to visually scan at objects or items. - Goals Timeframe: 1 week Goals: All functional transfers mod I. Bed mobility independent. Pt will ambulate 500 ft on even/uneven surfaces with RW and S. Pt will ascend/descend flight of stairs with B handrails and supervision - Provider Therapist: Ashlee Logan, PT, DPT License Number: [id number] Occupational Therapy - Arousal/Attention/Orientation Patient Orientation: Person, Place, Time, Appropriate to Age, Appropriate to Situation - ADL/IADL Self Feeding: Supervision, Verbal Cues, Set-up Help Grooming: Supervision, Verbal Cues Bathing-Upper Extremity: Verbal Cues, Set-up Help, Contact Guard Bathing-Lower Extremity: Verbal Cues, Set-up Help, Contact Guard Dressing-Upper Extremity: Supervision, Verbal Cues, Set-up Help Dressing-Lower Extremity: Verbal Cues, Set-up Help, Contact Guard - Sitting Balance Static Sitting: Independent without upper extremity support Dynamic Sitting: Reaches across midline, Reaches within base of support, Requires supervision - Transfers Wheelchair to Bed Transfers: Supervision, Verbal Cues, Set-up Help Toilet Transfers: Supervision, Verbal Cues, Set-up Help Tub Transfers: Verbal Cues, Set-up Help, Contact Guard Comment: Pt has a tub-shower at home with curtain. Discussed both tub-bench and shower chair with Pt and family. Recommend tub-bench at this time. Pt and fmaily in agreement. - Upper Extremity Status Right Upper Extremity Comment: ROM WFL Left Upper Extremity Comment: ROM WFL - Pain Pain (assessed during therapy session): 0 - Insight/Carryover Insight/Carryover: Fair - Patient/Family Education Comment: Pt and family education on proper techniques and increase safety during functional mobility trainng - Assessment/Plan Assessment: Pt participates in recreation therapy sessions when agreeable. Pt's participation is limited by fatigue and decrease arousal level. When pt is awake , he will continue to close his eyes and requires verbal cues for attention to task. Pt presents with decrease carryover of task rules and requires extended time to visually scan at objects or items. - Goals Timeframe: 1 week Goals: All functional transfers mod I. Bed mobility independent. Pt will ambulate 500 ft on even/uneven surfaces with RW and S. Pt will ascend/descend flight of stairs with B handrails and supervision - Provider Therapist: Janel MOCTEZUMA License Number: [id number] Speech Therapy - Consult Information Patient on Program: Yes Medical Diagnosis: CVA Treatment Diagnosis: - mild cognitive linguistic deficits - Assessment Problem Solving Impairment: Mild Comment: mildly impaired problem solving/reasoning for high level tasks Memory Impairment: Mild - Plan Assessment: Pt participates in recreation therapy sessions when agreeable. Pt's participation is limited by fatigue and decrease arousal level. When pt is awake , he will continue to close his eyes and requires verbal cues for attention to task. Pt presents with decrease carryover of task rules and requires extended time to visually scan at objects or items. - Provider Therapist: Carmela Gore License Number: [id number] Recreational Therapy - Participation Participation: Participates in Individual and/or Group Sessions - Attendance Attendance: 3-5 times per week - Activities Leisure Activities: Cards and Games - Socialization Level of Socialization: Initiates/interacts freely with care givers and peer - Diversional Time Diversional Time: television - Assessment Assessment/Plan: Pt participates in recreation therapy sessions when agreeable. Pt's participation is limited by fatigue and decrease arousal level. When pt is awake, he will continue to close his eyes and requires verbal cues for attention to task. Pt presents with decrease carryover of task rules and requires extended time to visually scan at objects or items. Problems Currently Limiting Participation: visual inattention to L side, decrease direction following, decrease attention to task, decrease leisure awareness level Goals and Time Frame: Pt will be encouraged to participate in 1:1 and group recreation therapy sessions 3-5x week to improve visual scanning on L side, recalling facts on demand, attention to task, and direction following. - Provider Therapist: Char Spencer, [employer] #[id number] Nutrition - Current Diet Current Diet/ Supplement/ Feedings: Heart healthy Moderate consistent CHO soft Glucerna shake 1 per day. (220 kcal and 10 grams of protein) - Appetite Percent Meal Consumed: 50-74% - Comments Comments: CARE POST CVA AND SAFETY PRECAUTIONS - Assessment/Goals/Time Frame Assessment/Goals/Time Frame: Safety Precautions - Provider Provider: Vane Menezes RD Case Management - Psychosocial Assessment Support Systems: Patient lives with daughter and spouse. Delores Kim ( daughter)- [phone] Psychological Interventions/Needs: Patient is alert and oriented and able to verbalize needs. Patient very motivated for therapy Discharge Concerns: Patient continues to require CG-Luanne for bed mobility, transfers, and ambulation. Patient/Family Meeting: CM met with patient/family and rehab team. Intervention/Goal/Outcome:: Patient primarily Pashto speaking dealership manager Violetta Dudley. 1. Goal: Intermittent supervision overall. 2. Plan: Home with home visiting nurse services. 3. DME needs. 4. f/u appts. 5. continued emotional support. 6. caregiver training? 7. Tentative discharge date: 12/10/2016 - Discharge Plan Discharge Plan: Home with services - Provider Provider: LIZBETH Thorne LSW License Number: [id number] Rehabilitation Plan - Treatment Plan Treatment Plan: Physical Therapy, Occupational Therapy, Speech, Patient/Family Education - Discharge Plan Discharge to: Home
--- NOTE | 2016-12-06 17:30 | CP.PCM.PN ---
Subjective - Date & Time of Evaluation Date of Evaluation: 12/06/16 Time of Evaluation: 17:29 - Subjective Subjective: Patient seen in room denies sob/cp in good spirits continues to improve in therapies and is essentially supervision except in lower extremity dressing which his is able to perform and help with him d/c is set for 12/10/16 continue current care Objective - Vital Signs/Intake and Output Vital Signs (last 24 hours): Temp Pulse Resp BP Pulse Ox 96.9 F L 70 19 100/52 L 97 12/06/16 15:59 12/06/16 15:59 12/06/16 15:59 12/06/16 15:59 12/06/16 15:59 - Medications Medications: Current Medications Acetaminophen (Tylenol 325mg Tab) 650 mg PO Q4 PRN PRN Reason: .for pain scale (4-10) Last Admin: 12/01/16 19:57 Dose: 650 mg Artificial Tears (Artificial Tears) 2 drop OU BID PRN PRN Reason: Dry eyes Last Admin: 11/20/16 14:07 Dose: 2 drop Aspirin (Aspirin Chewable) 81 mg PO DAILY [facility] Last Admin: 12/06/16 08:54 Dose: 81 mg Bisoprolol Fumarate (Zebeta) 5 mg PO DAILY [facility] Last Admin: 12/06/16 08:53 Dose: 5 mg Docusate Sodium (Colace) 100 mg PO BID [facility] Last Admin: 12/06/16 17:23 Dose: 100 mg Glipizide (Glucotrol Xl) 2.5 mg PO BRK [facility] Last Admin: 12/06/16 08:54 Dose: 2.5 mg Insulin Human Regular (Humulin R) 0 units SC ACHS [facility] PRN Reason: Protocol Last Admin: 12/06/16 17:23 Dose: Not Given Lisinopril (Zestril) 5 mg PO HS [facility] Last Admin: 12/05/16 21:01 Dose: 5 mg Nateglinide (Starlix) 120 mg PO BID [facility] Last Admin: 12/06/16 17:23 Dose: 120 mg Pantoprazole Sodium (Protonix Ec Tab) 20 mg PO DAILY [facility] Last Admin: 12/06/16 08:54 Dose: 20 mg Sodium Chloride (Sodium Chloride Tab) 1 gm PO DAILY [facility] Last Admin: 12/06/16 08:53 Dose: 1 gm - Labs Labs: 12/01/16 07:00 12/01/16 07:00 PT 10.8 SECONDS (9.6-11.2) 12/01/16 07:00 INR 1.04 (0.92-1.08) 12/01/16 07:00 APTT 26.6 SECONDS (23.3-32.5) 12/01/16 07:00
[2016-12-07] MEDS: Insulin Regular 100 units/ml SC SCH ×4 (06:32→21:05)
[2016-12-07] MEDS: Pantoprazole 20 mg EC Tab PO SCH (08:24)
[2016-12-07] MEDS: GlipiZIDE 2.5 mg SR Tab PO SCH (08:24)
[2016-12-08] MEDS: Insulin Regular 100 units/ml SC SCH ×4 (06:43→21:20)
--- NOTE | 2016-12-08 07:18 | CP.PCM.PN ---
Subjective - Date & Time of Evaluation Date of Evaluation: 12/08/16 Time of Evaluation: 07:17 - Subjective Subjective: no compaints/distress moving all ext 5/5,personal service representative equal w/ barely noticable decr strength l hand. no f/c , n/v/d for ct in am. dc sat 12/10/16 Objective - Vital Signs/Intake and Output Vital Signs (last 24 hours): Temp Pulse Resp BP Pulse Ox 98.1 F 85 20 104/60 100 12/07/16 20:01 12/08/16 06:00 12/07/16 20:01 12/08/16 06:00 12/07/16 20:01 - Medications Medications: Current Medications Acetaminophen (Tylenol 325mg Tab) 650 mg PO Q4 PRN PRN Reason: .for pain scale (4-10) Last Admin: 12/01/16 19:57 Dose: 650 mg Artificial Tears (Artificial Tears) 2 drop OU BID PRN PRN Reason: Dry eyes Last Admin: 11/20/16 14:07 Dose: 2 drop Aspirin (Aspirin Chewable) 81 mg PO DAILY [facility] Last Admin: 12/07/16 08:23 Dose: 81 mg Bisoprolol Fumarate (Zebeta) 5 mg PO DAILY [facility] Last Admin: 12/07/16 08:30 Dose: Not Given Docusate Sodium (Colace) 100 mg PO BID [facility] Last Admin: 12/07/16 17:01 Dose: 100 mg Glipizide (Glucotrol Xl) 2.5 mg PO BRK [facility] Last Admin: 12/07/16 08:24 Dose: 2.5 mg Insulin Human Regular (Humulin R) 0 units SC ACHS [facility] PRN Reason: Protocol Last Admin: 12/08/16 06:43 Dose: Not Given Lisinopril (Zestril) 5 mg PO HS [facility] Last Admin: 12/07/16 21:17 Dose: Not Given Nateglinide (Starlix) 120 mg PO BID [facility] Last Admin: 12/07/16 17:01 Dose: 120 mg Pantoprazole Sodium (Protonix Ec Tab) 20 mg PO DAILY [facility] Last Admin: 12/07/16 08:24 Dose: 20 mg Sodium Chloride (Sodium Chloride Tab) 1 gm PO DAILY [facility] Last Admin: 12/07/16 08:23 Dose: 1 gm - Labs Labs: 12/01/16 07:00 12/01/16 07:00 PT 10.8 SECONDS (9.6-11.2) 12/01/16 07:00 INR 1.04 (0.92-1.08) 12/01/16 07:00 APTT 26.6 SECONDS (23.3-32.5) 12/01/16 07:00 - Constitutional Appears: Well, Non-toxic, No Acute Distress - Head Exam Head Exam: ATRAUMATIC, NORMAL INSPECTION, NORMOCEPHALIC - Eye Exam Eye Exam: EOMI, Normal appearance, PERRL Pupil Exam: NORMAL ACCOMODATION, PERRL - ENT Exam ENT Exam: Mucous Membranes Moist, Normal Exam - Neck Exam Neck Exam: Full ROM, Normal Inspection. absent: Lymphadenopathy - Respiratory Exam Respiratory Exam: Clear to Ausculation Bilateral, NORMAL BREATHING PATTERN - Cardiovascular Exam Cardiovascular Exam: Irregular Rhythm, +S1, +S2. absent: Murmur - GI/Abdominal Exam GI & Abdominal Exam: Soft, Normal Bowel Sounds. absent: Tenderness - Extremities Exam Extremities Exam: Full ROM, Normal Capillary Refill, Normal Inspection. absent : Joint Swelling, Pedal Edema - Back Exam Back Exam: NORMAL INSPECTION - Neurological Exam Neurological Exam: Alert, Awake, CN II-XII Intact, Normal Gait, Oriented x3 Neuro motor strength exam: Left Upper Extremity: 5 (barely noticable decr strength ), Right Upper Extremity: 5, Left Lower Extremity: 5, Right Lower Extremity: 5 - Psychiatric Exam Psychiatric exam: Normal Affect, Normal Mood - Skin Skin Exam: Dry, Intact, Normal Color, Warm Assessment and Plan (1) CVA (cerebral vascular accident) Status: Acute (2) Chronic atrial fibrillation Status: Acute (3) DVT prophylaxis Status: Acute (4) Diabetes type 2, uncontrolled Status: Acute (5) HTN (hypertension) Status: Acute (6) Intracerebral hematoma Status: Acute - Assessment and Plan (Free Text) Assessment: (1) CVA (cerebral vascular accident) Assessment and Plan: neuro st/pt/ot dr mendez asa x2 wks until back on eliquis for 2 more weeks per neuro Status: Acute Priority: High (2) Chronic atrial fibrillation Assessment and Plan: asa x 2 wk then eliquis rate control cardio Status: Acute (3) DVT prophylaxis Assessment and Plan: scd nad ae hose ambualtion eliquis in 2 wks Status: Acute (4) Diabetes type 2, uncontrolled Assessment and Plan: riss home meds, fsbg diet control Status: Acute (5) HTN (hypertension) Assessment and Plan: nacl lisinopril close monitor and tight control Status: Acute (6) Intracerebral hematoma Assessment and Plan: hold eliquis x 2more wks Status: Acute
[2016-12-08] MEDS: Pantoprazole 20 mg EC Tab PO SCH (08:28)
[2016-12-08] MEDS: GlipiZIDE 2.5 mg SR Tab PO SCH (08:42)
[2016-12-09] MEDS: Insulin Regular 100 units/ml SC SCH ×4 (07:04→21:36)
[2016-12-09] MEDS: GlipiZIDE 2.5 mg SR Tab PO SCH (08:20)
[2016-12-09] MEDS: Pantoprazole 20 mg EC Tab PO SCH (08:20)
--- NOTE | 2016-12-09 14:44 | CT ---
PROCEDURE: CT HEAD WITHOUT CONTRAST. HISTORY: please re-evaluate bleed. COMPARISON: 11/29/2016 TECHNIQUE: Axial computed tomography images were obtained through the head/brain without intravenous contrast. Radiation dose: Total exam DLP = 1251.27 mGy-cm. This CT exam was performed using one or more of the following dose reduction techniques: Automated exposure control, adjustment of the mA and/or kV according to patient size, and/or use of iterative reconstruction technique. FINDINGS: BRAIN: There is redemonstration of a large right MCA territory infarction involving the frontal, parietal and temporal lobes with hemorrhagic conversion. There is interval increase in the amount of hemorrhage in the frontal, parietal and temporal lobes, worse in the temporal lobe. There is local regional mass effect, effacement of the ipsilateral sulci an approximately 7 mm midline shift from right to left. There is no evidence of uncal herniation. There are coarse atherosclerotic calcifications in the cavernous carotid and vertebral arteries. VENTRICLES: There is moderate age-related global parenchymal volume loss and proportionate enlargement of the ventricles and cortical sulci. CALVARIUM: The skull base and calvarium are normal. PARANASAL SINUSES: Predominantly clear. MASTOID AIR CELLS: The mastoid air cells are underdeveloped. OTHER FINDINGS: None. IMPRESSION: Interval increase in amount of hemorrhage in the known large right MCA territory and infarction involving the frontal, parietal and temporal lobe with local regional mass effect, effacement of the ipsilateral sulci and approximately 7 mm midline shift from right to left. The amount of hemorrhage is significantly more in the temporal lobe. No evidence of uncal herniation.
--- NOTE | 2016-12-09 18:28 | CP.PCM.PN ---
Subjective - Date & Time of Evaluation Date of Evaluation: 12/09/16 Time of Evaluation: 18:26 - Subjective Subjective: Patient seen had some extension of bleed seen on CT Neuro was not available and we got a "coverage" quick evaluation that felt that needed to stop ASA and start on keppra this was done but the team did not feel comfortable sending him home tomorrow so he will be here over weekend to get further therapy and observe that there is no worsening of his neurological status continue current care Objective - Vital Signs/Intake and Output Vital Signs (last 24 hours): Temp Pulse Resp BP Pulse Ox 98.1 F 70 20 110/73 95 12/09/16 08:28 12/09/16 08:28 12/09/16 08:28 12/09/16 08:28 12/09/16 08:28 - Medications Medications: Current Medications Acetaminophen (Tylenol 325mg Tab) 650 mg PO Q4 PRN PRN Reason: .for pain scale (4-10) Last Admin: 12/09/16 11:00 Dose: 650 mg Artificial Tears (Artificial Tears) 2 drop OU BID PRN PRN Reason: Dry eyes Last Admin: 11/20/16 14:07 Dose: 2 drop Bisoprolol Fumarate (Zebeta) 5 mg PO DAILY [facility] Last Admin: 12/09/16 08:21 Dose: Not Given Docusate Sodium (Colace) 100 mg PO BID [facility] Last Admin: 12/09/16 17:36 Dose: 100 mg Glipizide (Glucotrol Xl) 2.5 mg PO BRK [facility] Last Admin: 12/09/16 08:20 Dose: 2.5 mg Insulin Human Regular (Humulin R) 0 units SC ACHS [facility] PRN Reason: Protocol Last Admin: 12/09/16 16:55 Dose: Not Given Levetiracetam (Keppra) 500 mg PO BID [facility] Lisinopril (Zestril) 5 mg PO HS [facility] Last Admin: 12/08/16 21:19 Dose: Not Given Nateglinide (Starlix) 120 mg PO BID [facility] Last Admin: 12/09/16 17:36 Dose: 120 mg Pantoprazole Sodium (Protonix Ec Tab) 20 mg PO DAILY [facility] Last Admin: 12/09/16 08:20 Dose: 20 mg Sodium Chloride (Sodium Chloride Tab) 1 gm PO DAILY [facility] Last Admin: 12/09/16 08:20 Dose: 1 gm - Labs Labs: 12/01/16 07:00 12/01/16 07:00 PT 10.8 SECONDS (9.6-11.2) 12/01/16 07:00 INR 1.04 (0.92-1.08) 12/01/16 07:00 APTT 26.6 SECONDS (23.3-32.5) 12/01/16 07:00
[2016-12-10] MEDS: Insulin Regular 100 units/ml SC SCH ×4 (06:41→22:32)
[2016-12-10] MEDS: GlipiZIDE 2.5 mg SR Tab PO SCH (08:56)
[2016-12-10] MEDS: Pantoprazole 20 mg EC Tab PO SCH (08:56)
--- NOTE | 2016-12-10 08:59 | CP.PCM.PN ---
Subjective - Date & Time of Evaluation Date of Evaluation: 12/10/16 Time of Evaluation: 08:59 - Subjective Subjective: pt doing well in bed, no neuro deficits. no f/c, n/v/d family at bedside. pts ct head yesterday demonstrated incr bleeding w/ possible midlight shift. 2x neuro reviewed and deemed that no intervention besided monitoring neeeded to be compelted. asa to be QOD.keppra initially ordered but nto be held as per dr abreu. all ext 5/5, no facial asymetry Objective - Vital Signs/Intake and Output Vital Signs (last 24 hours): Temp Pulse Resp BP Pulse Ox 97.7 F 94 H 18 107/66 98 12/10/16 07:36 12/10/16 07:36 12/10/16 07:36 12/10/16 07:36 12/10/16 07:36 - Medications Medications: Current Medications Acetaminophen (Tylenol 325mg Tab) 650 mg PO Q4 PRN PRN Reason: .for pain scale (4-10) Last Admin: 12/09/16 11:00 Dose: 650 mg Artificial Tears (Artificial Tears) 2 drop OU BID PRN PRN Reason: Dry eyes Last Admin: 11/20/16 14:07 Dose: 2 drop Bisoprolol Fumarate (Zebeta) 5 mg PO DAILY [facility] Last Admin: 12/09/16 08:21 Dose: Not Given Docusate Sodium (Colace) 100 mg PO BID [facility] Last Admin: 12/10/16 08:56 Dose: 100 mg Glipizide (Glucotrol Xl) 2.5 mg PO BRK [facility] Last Admin: 12/10/16 08:56 Dose: 2.5 mg Insulin Human Regular (Humulin R) 0 units SC ACHS [facility] PRN Reason: Protocol Last Admin: 12/10/16 06:41 Dose: Not Given Levetiracetam (Keppra) 500 mg PO BID [facility] Last Admin: 12/10/16 08:56 Dose: 500 mg Lisinopril (Zestril) 5 mg PO HS [facility] Last Admin: 12/09/16 21:36 Dose: Not Given Nateglinide (Starlix) 120 mg PO BID [facility] Last Admin: 12/10/16 08:57 Dose: 120 mg Pantoprazole Sodium (Protonix Ec Tab) 20 mg PO DAILY [facility] Last Admin: 12/10/16 08:56 Dose: 20 mg Sodium Chloride (Sodium Chloride Tab) 1 gm PO DAILY [facility] Last Admin: 12/10/16 08:56 Dose: 1 gm - Labs Labs: 12/01/16 07:00 12/01/16 07:00 PT 10.8 SECONDS (9.6-11.2) 12/01/16 07:00 INR 1.04 (0.92-1.08) 12/01/16 07:00 APTT 26.6 SECONDS (23.3-32.5) 12/01/16 07:00 - Constitutional Appears: Well, Non-toxic, No Acute Distress - Head Exam Head Exam: ATRAUMATIC, NORMAL INSPECTION, NORMOCEPHALIC - Eye Exam Eye Exam: EOMI, Normal appearance, PERRL Pupil Exam: NORMAL ACCOMODATION, PERRL - ENT Exam ENT Exam: Mucous Membranes Moist, Normal Exam - Neck Exam Neck Exam: Full ROM, Normal Inspection. absent: Lymphadenopathy - Respiratory Exam Respiratory Exam: Clear to Ausculation Bilateral, NORMAL BREATHING PATTERN - Cardiovascular Exam Cardiovascular Exam: REGULAR RHYTHM, RRR, +S1, +S2. absent: Murmur - GI/Abdominal Exam GI & Abdominal Exam: Soft, Normal Bowel Sounds. absent: Tenderness - Extremities Exam Extremities Exam: Full ROM, Normal Capillary Refill, Normal Inspection. absent : Joint Swelling, Pedal Edema - Back Exam Back Exam: NORMAL INSPECTION - Neurological Exam Neurological Exam: Alert, Awake, CN II-XII Intact, Normal Gait, Oriented x3 Neuro motor strength exam: Left Upper Extremity: 5, Right Upper Extremity: 5, Left Lower Extremity: 5, Right Lower Extremity: 5 - Psychiatric Exam Psychiatric exam: Normal Affect, Normal Mood - Skin Skin Exam: Dry, Intact, Normal Color, Warm Assessment and Plan (1) CVA (cerebral vascular accident) Status: Acute (2) Chronic atrial fibrillation Status: Acute (3) DVT prophylaxis Status: Acute (4) Diabetes type 2, uncontrolled Status: Acute (5) HTN (hypertension) Status: Acute (6) Intracerebral hematoma Status: Acute - Assessment and Plan (Free Text) Assessment: (1) CVA (cerebral vascular accident) Assessment and Plan: neuro st/pt/ot dr mendez asa x2 wks until back on eliquis for 2 more weeks per neuro asa QOD ct 2 wks hold keppra Status: Acute Priority: High (2) Chronic atrial fibrillation Assessment and Plan: asa x 2 wk then eliquis rate control cardio Status: Acute (3) DVT prophylaxis Assessment and Plan: scd nad ae hose ambualtion eliquis in 2 wks Status: Acute (4) Diabetes type 2, uncontrolled Assessment and Plan: riss home meds, fsbg diet control Status: Acute (5) HTN (hypertension) Assessment and Plan: nacl lisinopril close monitor and tight control Status: Acute (6) Intracerebral hematoma Assessment and Plan: hold eliquis x 2more wks Status: Acute hold dc until monday12/12/16
[2016-12-11] MEDS: Insulin Regular 100 units/ml SC SCH ×4 (07:38→21:48)
[2016-12-11] MEDS: GlipiZIDE 2.5 mg SR Tab PO SCH (08:36)
[2016-12-11] MEDS: Pantoprazole 20 mg EC Tab PO SCH (08:36)
[2016-12-12 01:08] VITALS: PULSE 79; O2SAT 99
[2016-12-12] MEDS: Insulin Regular 100 units/ml SC SCH (07:00)
--- NOTE | 2016-12-12 07:22 | CP.PCM.DIS ---
Provider - Provider Date of Admission: 11/19/16 20:44 Attending physician: Charity Bird MD Time Spent in preparation of Discharge (in minutes): 20 Diagnosis - Discharge Diagnosis (1) CVA (cerebral vascular accident) Status: Acute Priority: High (2) Chronic atrial fibrillation Status: Acute (3) DVT prophylaxis Status: Acute (4) Diabetes type 2, uncontrolled Status: Acute (5) HTN (hypertension) Status: Acute (6) Intracerebral hematoma Status: Acute Hospital Course - Lab Results Lab Results: Most Recent Lab Values WBC 7.9 K/uL (4.8-10.8) 12/01/16 07:00 RBC 4.41 Mil/uL (4.40-5.90) 12/01/16 07:00 Hgb 13.9 g/dL (12.0-18.0) 12/01/16 07:00 Hct 41.6 % (35.0-51.0) 12/01/16 07:00 MCV 94.2 fl (80.0-94.0) H D 12/01/16 07:00 MCH 31.4 pg (27.0-31.0) H 12/01/16 07:00 MCHC 33.4 g/dL (33.0-37.0) 12/01/16 07:00 RDW 15.5 % (11.5-14.5) H 12/01/16 07:00 Plt Count 316 K/uL (130-400) 12/01/16 07:00 MPV 9.0 fl (7.2-11.7) 12/01/16 07:00 Neut % (Auto) 59.8 % (50.0-75.0) 12/01/16 07:00 Lymph % (Auto) 28.2 % (20.0-40.0) 12/01/16 07:00 [place] % (Auto) 6.3 % (0.0-10.0) 12/01/16 07:00 Eos % (Auto) 5.0 % (0.0-4.0) H 12/01/16 07:00 Baso % (Auto) 0.7 % (0.0-2.0) 12/01/16 07:00 Neut # 4.7 K/uL (1.8-7.0) 12/01/16 07:00 Lymph # 2.2 K/uL (1.0-4.3) 12/01/16 07:00 [place] # 0.5 K/uL (0.0-0.8) 12/01/16 07:00 Eos # 0.4 K/uL (0.0-0.7) 12/01/16 07:00 Baso # 0.1 K/uL (0.0-0.2) 12/01/16 07:00 PT 10.8 SECONDS (9.6-11.2) 12/01/16 07:00 INR 1.04 (0.92-1.08) 12/01/16 07:00 APTT 26.6 SECONDS (23.3-32.5) 12/01/16 07:00 Sodium 141 mmol/l (132-148) 12/01/16 07:00 Potassium 3.8 MMOL/L (3.6-5.0) 12/01/16 07:00 Chloride 104 mmol/L (98-107) 12/01/16 07:00 Carbon Dioxide 28 mmol/L (22-30) 12/01/16 07:00 Anion Gap 14 (10-20) 12/01/16 07:00 BUN 23 mg/dl (9-20) H 12/01/16 07:00 Creatinine 0.9 mg/dL (0.8-1.5) 12/01/16 07:00 Est GFR ( Amer) > 60 12/01/16 07:00 Est GFR (Non-Af Amer) > 60 12/01/16 07:00 POC Glucose (mg/dL) 201 mg/dL (65-110) H 12/11/16 20:46 Random Glucose 112 mg/dL (75-110) H 12/01/16 07:00 Calcium 9.3 mg/dL (8.4-10.2) 12/01/16 07:00 Total Bilirubin 0.5 mg/dl (0.2-1.3) 12/01/16 07:00 AST 38 U/L (17-59) 12/01/16 07:00 ALT 24 U/L (21-72) 12/01/16 07:00 Alkaline Phosphatase 67 U/L (38-126) 12/01/16 07:00 Total Protein 6.5 G/DL (6.3-8.2) 12/01/16 07:00 Albumin 3.3 g/dL (3.5-5.0) L 12/01/16 07:00 Globulin 3.2 gm/dL (2.2-3.9) 12/01/16 07:00 Albumin/Globulin Ratio 1.0 (1.0-2.1) 12/01/16 07:00 Discharge Exam - Head Exam Head Exam: ATRAUMATIC, NORMAL INSPECTION, NORMOCEPHALIC - Eye Exam Eye Exam: EOMI, Normal appearance, PERRL Pupil Exam: NORMAL ACCOMODATION, PERRL - Respiratory Exam Respiratory Exam: Clear to PA & Lateral, NORMAL BREATHING PATTERN - Cardiovascular Exam Cardiovascular Exam: Irregular Rhythm, +S1, +S2 - GI/Abdominal Exam GI & Abdominal Exam: Normal Bowel Sounds - Extremities Exam Extremities exam: full ROM, normal capillary refill, normal inspection, pedal pulses present - Back Exam Back exam: FULL ROM - Neurological Exam Neurological exam: Alert, CN II-XII Intact, Normal Gait, Oriented x3, Reflexes Normal - Psychiatric Exam Psychiatric exam: Normal Affect, Normal Mood - Skin Skin Exam: Dry, Intact, Normal Color, Warm Discharge Plan - Discharge Medications Prescriptions: Aspirin [Aspirin Chewable] 81 mg PO QOTHERDAY #30 chew Docusate [Colace] 100 mg PO BID #20 cap Sodium Chloride [Sodium Chloride Tab] 1 gm PO DAILY #14 tab - Follow Up Plan Condition: GOOD Disposition: HOME/ ROUTINE Instructions: Lisinopril (By mouth), Glipizide (By mouth), Bisoprolol (By mouth ), Pantoprazole (By mouth), Nateglinide (By mouth), Sodium Chloride (By mouth), Hemorrhagic Stroke (DC) Additional Instructions: Please consult with Dr. Marie first before re-starting Eliquis. asa qod. doing well. moving all ext. no numbnes/tingling weakness. all instructions provided to . f/u pmd. cardio, neuor 1 wk. rted prn, mm final dx-cva w/ hemorrhagic conversion, repeat ct 2 wks. movinga ll ext 5/5
[2016-12-12 07:24] VITALS: BP 120/78; RESP 18; TEMP 97.3
[2016-12-12] MEDS: Pantoprazole 20 mg EC Tab PO SCH (08:23)
[2016-12-12] MEDS: GlipiZIDE 2.5 mg SR Tab PO SCH (08:23)
--- NOTE | 2016-12-20 14:30 | CP.PCM.DIS ---
Provider - Provider Date of Admission: 11/19/16 20:44 Attending physician: Charity Bird MD Time Spent in preparation of Discharge (in minutes): 5 [employer] Discharge Summary Discharge date: 12/16/16 - Review of Plan of Care Physical Therapy: Good Occupational Therapy: Good Recreational Therapy: Good - Goal Attainment Status on discharge: Greater than 200 Feet Assistive device: Rolling Walker Level of assistance: Supervision ADL: Good Level of assistance: Contact Guard Transfer: Good Level of assistance: Supervision Speech Comprehension: Mild Impairment Expression: Mild Impairment - Plan for patients rehabilitation in the Home: Physical Therapy Discharge instructions provided to patient and family: Instructions with medications, Follow up with PMD and/or surgeon Hospital Course - Lab Results Lab Results: Most Recent Lab Values WBC 7.9 K/uL (4.8-10.8) 12/01/16 07:00 RBC 4.41 Mil/uL (4.40-5.90) 12/01/16 07:00 Hgb 13.9 g/dL (12.0-18.0) 12/01/16 07:00 Hct 41.6 % (35.0-51.0) 12/01/16 07:00 MCV 94.2 fl (80.0-94.0) H D 12/01/16 07:00 MCH 31.4 pg (27.0-31.0) H 12/01/16 07:00 MCHC 33.4 g/dL (33.0-37.0) 12/01/16 07:00 RDW 15.5 % (11.5-14.5) H 12/01/16 07:00 Plt Count 316 K/uL (130-400) 12/01/16 07:00 MPV 9.0 fl (7.2-11.7) 12/01/16 07:00 Neut % (Auto) 59.8 % (50.0-75.0) 12/01/16 07:00 Lymph % (Auto) 28.2 % (20.0-40.0) 12/01/16 07:00 [place] % (Auto) 6.3 % (0.0-10.0) 12/01/16 07:00 Eos % (Auto) 5.0 % (0.0-4.0) H 12/01/16 07:00 Baso % (Auto) 0.7 % (0.0-2.0) 12/01/16 07:00 Neut # 4.7 K/uL (1.8-7.0) 12/01/16 07:00 Lymph # 2.2 K/uL (1.0-4.3) 12/01/16 07:00 [place] # 0.5 K/uL (0.0-0.8) 12/01/16 07:00 Eos # 0.4 K/uL (0.0-0.7) 12/01/16 07:00 Baso # 0.1 K/uL (0.0-0.2) 12/01/16 07:00 PT 10.8 SECONDS (9.6-11.2) 12/01/16 07:00 INR 1.04 (0.92-1.08) 12/01/16 07:00 APTT 26.6 SECONDS (23.3-32.5) 12/01/16 07:00 Sodium 141 mmol/l (132-148) 12/01/16 07:00 Potassium 3.8 MMOL/L (3.6-5.0) 12/01/16 07:00 Chloride 104 mmol/L (98-107) 12/01/16 07:00 Carbon Dioxide 28 mmol/L (22-30) 12/01/16 07:00 Anion Gap 14 (10-20) 12/01/16 07:00 BUN 23 mg/dl (9-20) H 12/01/16 07:00 Creatinine 0.9 mg/dL (0.8-1.5) 12/01/16 07:00 Est GFR ( Amer) > 60 12/01/16 07:00 Est GFR (Non-Af Amer) > 60 12/01/16 07:00 POC Glucose (mg/dL) 139 mg/dL (65-110) H 12/12/16 06:03 Random Glucose 112 mg/dL (75-110) H 12/01/16 07:00 Calcium 9.3 mg/dL (8.4-10.2) 12/01/16 07:00 Total Bilirubin 0.5 mg/dl (0.2-1.3) 12/01/16 07:00 AST 38 U/L (17-59) 12/01/16 07:00 ALT 24 U/L (21-72) 12/01/16 07:00 Alkaline Phosphatase 67 U/L (38-126) 12/01/16 07:00 Total Protein 6.5 G/DL (6.3-8.2) 12/01/16 07:00 Albumin 3.3 g/dL (3.5-5.0) L 12/01/16 07:00 Globulin 3.2 gm/dL (2.2-3.9) 12/01/16 07:00 Albumin/Globulin Ratio 1.0 (1.0-2.1) 12/01/16 07:00 Discharge Exam - Head Exam Head Exam: ATRAUMATIC, NORMAL INSPECTION, NORMOCEPHALIC Discharge Plan - Discharge Medications Prescriptions: Aspirin [Aspirin Chewable] 81 mg PO QOTHERDAY #30 chew Docusate [Colace] 100 mg PO BID #20 cap Sodium Chloride [Sodium Chloride Tab] 1 gm PO DAILY #14 tab - Follow Up Plan Condition: GOOD Disposition: HOME/ ROUTINE Instructions: Lisinopril (By mouth), Glipizide (By mouth), Bisoprolol (By mouth ), Pantoprazole (By mouth), Nateglinide (By mouth), Sodium Chloride (By mouth), Hemorrhagic Stroke (DC) Additional Instructions: Please consult with Dr. Marie first before re-starting Eliquis. asa qod. doing well. moving all ext. no numbnes/tingling weakness. all instructions provided to . f/u pmd. cardio, neuor 1 wk. rted prn, mm final dx-cva w/ hemorrhagic conversion, repeat ct 2 wks. movinga ll ext 12/23
== END 2016-12-12 10:00 | disposition home or self-care (01) | DRG 57 ==
PROVIDERS: ADMIT Family Medicine; ATTEND Family Medicine
PROC: F07L6ZZ Therapeutic Exercise Treatment of Musculoskeletal System - Lower Back / Lower Extremity (ICD-10-PCS; principal; 2016-11-21)
PROC: F07Z9FZ Gait Training/Functional Ambulation Treatment using Assistive, Adaptive, Supportive or Protective Equipment (ICD-10-PCS; 2016-11-21)
PROC: F08Z4FZ Home Management Treatment using Assistive, Adaptive, Supportive or Protective Equipment (ICD-10-PCS; 2016-11-21)
DX: I69.354 Hemiplegia and hemiparesis following cerebral infarction affecting left non-dominant side (principal); E11.65 Type 2 diabetes mellitus with hyperglycemia; I48.2 Chronic atrial fibrillation; Z87.891 Personal history of nicotine dependence; I10 Essential (primary) hypertension; Z90.49 Acquired absence of other specified parts of digestive tract; H35.30 Unspecified macular degeneration; Z79.82 Long term (current) use of aspirin; Z79.01 Long term (current) use of anticoagulants; Z79.84 Long term (current) use of oral hypoglycemic drugs

== ENCOUNTER 2017-02-20 23:54 | Inpatient (IN) | payer MEDICARE ==
--- NOTE | 2017-02-21 00:28 | ED PDOC ---
HPI: Chest Pain Time Seen by Provider: 02/20/17 23:58 Chief Complaint (Nursing): Chest Pain Chief Complaint (Provider): Chest Pain History Per: Patient History/Exam Limitations: no limitations Onset/Duration Of Symptoms: Mins (x20) Current Symptoms Are (Timing): Still Present Associated Symptoms: denies: Dyspnea Additional Complaint(s): 86 year old male presents to ED with complaints of left sided chest pain x20 minutes and has an extensive past medical history including but not limited to AFIB, CVA, CHF, HTN, and DM. States that the pain is non-radiating and non- exertional. (-) SOB. Notes that he takes ASA every other day and that his last usage was yesterday. PCP: Gely Cloud Past Medical History Reviewed: Historical Data, Nursing Documentation, Vital Signs Vital Signs: Last Vital Signs Temp 97.6 F 02/21/17 02:23 Pulse 89 02/21/17 02:27 Resp 18 02/21/17 02:27 BP 111/72 02/21/17 02:23 Pulse Ox 96 02/21/17 02:27 - Medical History PMH: Atrial Fibrillation (Previously on Xarelto), Cardia Arrhythmia, CHF, Diabetes, HTN, TIA Denies: HIV, Chronic Kidney Disease - Surgical History Surgical History: Cholecystectomy (July 2000) - Family History Family History: States: No Known Family Hx - Home Medications Home Medications: Ambulatory Orders Medication Instructions Recorded Nateglinide 120 mg PO BID 11/16/16 Aspirin [Aspirin Chewable] 81 mg PO QOTHERDAY #30 chew 12/11/16 Docusate [Colace] 100 mg PO BID #20 cap 12/11/16 ALPRAZolam [Xanax] 0.25 mg PO DAILY 02/21/17 Bisoprolol [Zebeta] 10 mg PO DAILY 02/21/17 OLANZapine [Zyprexa] 2.5 mg PO DAILY 02/21/17 Pantoprazole [Protonix EC Tab] 40 mg PO DAILY 02/21/17 traZODone [Desyrel] 100 mg PO DAILY 02/21/17 - Allergies Allergies/Adverse Reactions: Allergies Allergy/AdvReac Type Severity Reaction Status Date / Time No Known Allergies Allergy Verified 11/19/16 20:44 SHAYNE Risk Score for UA/NSTEMI - SHAYNE Risk Score Age > 64: YES 3 or more CAD Risk Factors: YES Aspirin use in past 7 days: YES SHAYNE Score: 3 Risk %: 13% Curb-65 Severity Score - CURB-65 Severity Score Confusion: No Respiratory Rate greater than/equal to 30: No Systolic BP <90 or Diastolic BP less than/equal 60mmHg: No Age >64: Yes Curb-65 Score: 1 Percentage 30-day mortality: 2.7% Wells Criteria for PE - Wells Criteria for Pulmonary Embolism Clinical Signs and Symptoms of DVT: No P.E is #1 Diagnosis, or Equally Likely: No Heart Rate >100: No Immobilization at least 3 days;Surgery previous 4 weeks: No Previous, objectively diagnosed PE or DVT: No Hemoptysis: No Malignancy w/treatment within 6 months, or palliative: No Total Score: 0 Review of Systems ROS Statement: Except As Marked, All Systems Reviewed And Found Negative Cardiovascular: Positive for: Chest Pain Respiratory: Negative for: Shortness of Breath Physical Exam - Reviewed Nursing Documentation Reviewed: Yes Vital Signs Reviewed: Yes - Physical Exam Appears: Positive for: Non-toxic, Uncomfortable Skin: Positive for: Normal Color, Warm, Dry Eye Exam: Positive for: Normal appearance, EOMI, PERRL ENT: Positive for: Normal ENT Inspection Neck: Positive for: Normal Cardiovascular/Chest: Positive for: Regular Rate, Rhythm. Negative for: Murmur Respiratory: Positive for: Normal Breath Sounds. Negative for: Respiratory Distress Gastrointestinal/Abdominal: Positive for: Normal Exam, Soft. Negative for: Tenderness Back: Positive for: Normal Inspection Extremity: Positive for: Normal ROM. Negative for: Deformity Neurologic/Psych: Positive for: Alert, Oriented. Negative for: Motor/Sensory Deficits - Laboratory Results Result Diagrams: 02/21/17 00:16 02/21/17 00:16 - ECG O2 Sat by Pulse Oximetry: 99 (RA) Pulse Ox Interpretation: Normal Medical Decision Making Medical Decision Makin Initial impression: nonspecific chest pain Initial plan: * EKG * Labs * Trop I * PTT/PT * CXR * Toradol 15mg IVP * Re-eval 130am given age and risk factors, will admit for continuous cardiac monitoring. Yan Puente aware. Scribe Attestation: Documented by Nadine High acting as a scribe for Iain Mccabe MD. Scribe Attestation: All medical record entries made by the Scribe were at my direction and personally dictated by me. I have reviewed the chart and agree that the record accurately reflects my personal performance of the history, physical exam, medical decision making, and the department course for this patient. I have also personally directed, reviewed, and agree with the discharge instructions and disposition. Disposition - Clinical Impression Clinical Impression: Chest pain - Disposition Disposition Time: 01:30 Condition: STABLE
[2017-02-21 00:43] LABS: BASO # 0.1 K/uL (0.0-0.2); BASO % 1.2 % (0.0-2.0); EOS # 0.5 K/uL (0.0-0.7); EOS % 5.1 % (0.0-4.0); HEMOGLOBIN 13.7 g/dL (12.0-18.0); LYMPH # 3.4 K/uL (1.0-4.3); LYMPH % 37.8 % (20.0-40.0); MEAN CELL VOLUME 96.2 fl (80.0-94.0); MEAN CORPUSCULAR HGB CONC 33.3 g/dL (33.0-37.0); MEAN PLATELET VOLUME 8.7 fl (7.2-11.7); MONO # 0.7 K/uL (0.0-0.8); MONO % 7.2 % (0.0-10.0); NEUT # 4.4 K/uL (1.8-7.0); NEUT % 48.7 % (50.0-75.0); RBC 4.27 Mil/uL (4.40-5.90); RED CELL DISTRIBUTION WIDTH 14.2 % (11.5-14.5); WHITE BLOOD COUNT 9.1 K/uL (4.8-10.8)
[2017-02-21 00:57] LABS: BLOOD UREA NITROGEN 24 mg/dl (9-20); CALCIUM 9.6 mg/dL (8.4-10.2); GFR AFRICAN-AMERICAN > 60; GFR NON-AFRICAN AMERICAN 57
[2017-02-21 00:58] LABS: PARTIAL THROMBOPLASTIN TIME 28.6 Seconds (25.6-37.1)
[2017-02-21 06:06] LABS: HEMOGLOBIN 13.7 g/dL (12.0-18.0); MEAN CELL VOLUME 95.9 fl (80.0-94.0); MEAN CORPUSCULAR HEMOGLOBIN 32.1 pg (27.0-31.0); MEAN CORPUSCULAR HGB CONC 33.5 g/dL (33.0-37.0); RBC 4.26 Mil/uL (4.40-5.90); RED CELL DISTRIBUTION WIDTH 14.1 % (11.5-14.5); WHITE BLOOD COUNT 10.7 K/uL (4.8-10.8)
[2017-02-21 06:26] LABS: ALB/GLOB RATIO 1.2 (1.0-2.1); ALBUMIN 3.7 g/dL (3.5-5.0); ALT/SGPT 49 U/L (21-72); AST/SGOT 67 U/L (17-59); BLOOD UREA NITROGEN 20 mg/dl (9-20); CALCIUM 9.6 mg/dL (8.4-10.2); GFR AFRICAN-AMERICAN > 60; GFR NON-AFRICAN AMERICAN > 60
[2017-02-21] MEDS: Pantoprazole 40 mg EC Tab PO SCH (08:42)
--- NOTE | 2017-02-21 08:55 | CP.PCM.CON ---
History of Present Illness - History of Present Illness History of Present Illness: discussed consult with Yan Puente APN. troponin noted. recommend chech serial cardiac enzymes. will add Plavix. 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 - RENAL Hx Chronic Kidney Disease: No - ENDOCRINE/METABOLIC Hx Endocrine Disorders: Yes Hx Diabetes Mellitus Type 2: Yes - HEMATOLOGICAL/ONCOLOGICAL Hx Human Immunodeficiency Virus (HIV): No - INTEGUMENTARY Hx Dermatological Problems: No - MUSCULOSKELETAL/RHEUMATOLOGICAL Hx Musculoskeletal Disorders: No Hx Falls: No - GASTROINTESTINAL Hx Gastrointestinal Disorders: No - GENITOURINARY/GYNECOLOGICAL Hx Genitourinary Disorders: No - PSYCHIATRIC Hx Psychophysiologic Disorder: No Hx Substance Use: No - SURGICAL HISTORY Hx Cholecystectomy: Yes (July 2000) - ANESTHESIA Hx Anesthesia: Yes Hx Anesthesia Reactions: No Hx Malignant Hyperthermia: No Meds Allergies/Adverse Reactions: Allergies Allergy/AdvReac Type Severity Reaction Status Date / Time No Known Allergies Allergy Verified 11/19/16 20:44 - Medications Medications: Current Medications Acetaminophen (Tylenol 325mg Tab) 325 mg PO Q4 PRN PRN Reason: Headache Alprazolam (Xanax) 0.25 mg PO DAILY PRN PRN Reason: Anxiety Stop: 02/28/17 09:01 Last Admin: 02/21/17 05:33 Dose: 0.25 mg Aspirin (Aspirin Chewable) 81 mg PO DAILY [facility] Last Admin: 02/21/17 08:42 Dose: 81 mg Bisoprolol Fumarate (Zebeta) 10 mg PO DAILY [facility] Last Admin: 02/21/17 08:43 Dose: 10 mg Docusate Sodium (Colace) 100 mg PO BID [facility] Last Admin: 02/21/17 08:42 Dose: 100 mg Nateglinide (Starlix) 120 mg PO BID [facility] Last Admin: 02/21/17 08:42 Dose: 120 mg Nitroglycerin (Nitrostat Sl Tab) 0.4 mg SL Q5M PRN PRN Reason: chest pain Olanzapine (Zyprexa) 2.5 mg PO DAILY [facility] Last Admin: 02/21/17 08:43 Dose: 2.5 mg Pantoprazole Sodium (Protonix Ec Tab) 40 mg PO DAILY [facility] Last Admin: 02/21/17 08:42 Dose: 40 mg Trazodone HCl (Desyrel) 100 mg PO DAILY [facility] Last Admin: 02/21/17 08:42 Dose: 100 mg Results - Vital Signs Recent Vital Signs: Last Vital Signs Temp 97.7 F 02/21/17 08:12 Pulse 71 02/21/17 08:12 Resp 18 02/21/17 08:12 BP 104/70 02/21/17 08:12 Pulse Ox 97 02/21/17 08:12 - Labs Result Diagrams: 02/21/17 05:00 02/21/17 05:00 Labs: Laboratory Results - last 24 hr 02/21/17 02/21/17 02/21/17 05:00 05:00 05:12 WBC 10.7 RBC 4.26 L Hgb 13.7 Hct 40.9 MCV 95.9 H MCH 32.1 H MCHC 33.5 RDW 14.1 Plt Count 302 Sodium 137 Potassium 4.2 Chloride 105 Carbon Dioxide 25 Anion Gap 12 BUN 20 Creatinine 1.0 Est GFR ( Amer) > 60 Est GFR (Non-Af Amer) > 60 POC Glucose (mg/dL) 188 H Random Glucose 177 H Calcium 9.6 Total Bilirubin 0.4 AST 67 H D ALT 49 Alkaline Phosphatase 75 Troponin I 4.6000 H* Total Protein 6.9 Albumin 3.7 Globulin 3.2 Albumin/Globulin Ratio 1.2
--- NOTE | 2017-02-21 09:52 | CP.PCM.HP ---
History of Present Illness - History of Present Illness History of Present Illness: pt brought in for cp. note din afib w/ pvc rate 80s. at present w/o cp, no f/c , n/v/d. 1st trop 0.012, 2nd [address] plascencia aware. plavix ordered. neuro consult pendign for ?? anticoagulation. repeat ekg ordered. Present on Admission - Present on Admission Any Indicators Present on Admission: Yes History of Uncontrolled Diabetes: Yes Review of Systems - Cardiovascular Cardiovascular: As Per HPI, Chest Pain Past Patient History - Past Medical History & Family History Past Medical History?: Yes - Past Social History Smoking Status: Former Smoker - CARDIAC Hx Atrial Fibrillation: Yes (Previously on Xarelto) Hx Cardia Arrhythmia: Yes Hx Congestive Heart Failure: Yes Hx Hypertension: Yes - PULMONARY Hx Respiratory Disorders: No - NEUROLOGICAL Hx Transient Ischemic Attacks (TIA): Yes - HEENT Hx HEENT Problems: Yes Hx Macular Degeneration: Yes (Right eye) Other/Comment: - 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 - RENAL Hx Chronic Kidney Disease: No - ENDOCRINE/METABOLIC Hx Endocrine Disorders: Yes Hx Diabetes Mellitus Type 2: Yes - HEMATOLOGICAL/ONCOLOGICAL Hx Human Immunodeficiency Virus (HIV): No - INTEGUMENTARY Hx Dermatological Problems: No - MUSCULOSKELETAL/RHEUMATOLOGICAL Hx Musculoskeletal Disorders: No Hx Falls: No - GASTROINTESTINAL Hx Gastrointestinal Disorders: No - GENITOURINARY/GYNECOLOGICAL Hx Genitourinary Disorders: No - PSYCHIATRIC Hx Psychophysiologic Disorder: No Hx Substance Use: No - SURGICAL HISTORY Hx Cholecystectomy: Yes (July 2000) - ANESTHESIA Hx Anesthesia: Yes Hx Anesthesia Reactions: No Hx Malignant Hyperthermia: No Meds Allergies/Adverse Reactions: Allergies Allergy/AdvReac Type Severity Reaction Status Date / Time No Known Allergies Allergy Verified 11/19/16 20:44 Physical Exam - Constitutional Appears: Well, Non-toxic, No Acute Distress - Head Exam Head Exam: ATRAUMATIC, NORMAL INSPECTION, NORMOCEPHALIC - Eye Exam Eye Exam: EOMI, Normal appearance, PERRL Pupil Exam: NORMAL ACCOMODATION, PERRL - ENT Exam ENT Exam: Mucous Membranes Moist, Normal Exam - Neck Exam Neck exam: Positive for: Normal Inspection - Respiratory Exam Respiratory Exam: Clear to Auscultation Bilateral, NORMAL BREATHING PATTERN - Cardiovascular Exam Cardiovascular Exam: REGULAR RHYTHM, RRR, +S1, +S2 - GI/Abdominal Exam GI & Abdominal Exam: Normal Bowel Sounds, Soft. absent: Tenderness - Extremities Exam Extremities exam: Positive for: full ROM, normal capillary refill, normal inspection, pedal pulses present - Back Exam Back exam: NORMAL INSPECTION - Neurological Exam Neurological exam: Alert, CN II-XII Intact, Normal Gait, Oriented x3, Reflexes Normal - Psychiatric Exam Psychiatric exam: Normal Affect, Normal Mood - Skin Skin Exam: Dry, Intact, Normal Color, Warm Results - Vital Signs Recent Vital Signs: Last Vital Signs Temp 97.7 F 02/21/17 08:12 Pulse 71 02/21/17 09:00 Resp 18 02/21/17 08:12 BP 104/70 02/21/17 08:12 Pulse Ox 97 02/21/17 08:12 - Labs Result Diagrams: 02/21/17 05:00 02/21/17 05:00 Labs: Laboratory Results - last 24 hr 02/21/17 02/21/17 02/21/17 05:00 05:00 05:12 WBC 10.7 RBC 4.26 L Hgb 13.7 Hct 40.9 MCV 95.9 H MCH 32.1 H MCHC 33.5 RDW 14.1 Plt Count 302 Sodium 137 Potassium 4.2 Chloride 105 Carbon Dioxide 25 Anion Gap 12 BUN 20 Creatinine 1.0 Est GFR ( Amer) > 60 Est GFR (Non-Af Amer) > 60 POC Glucose (mg/dL) 188 H Random Glucose 177 H Calcium 9.6 Total Bilirubin 0.4 AST 67 H D ALT 49 Alkaline Phosphatase 75 Troponin I 4.6000 H* Total Protein 6.9 Albumin 3.7 Globulin 3.2 Albumin/Globulin Ratio 1.2 02/21/17 08:15 WBC RBC Hgb Hct MCV MCH MCHC RDW Plt Count Sodium Potassium Chloride Carbon Dioxide Anion Gap BUN Creatinine Est GFR ( Amer) Est GFR (Non-Af Amer) POC Glucose (mg/dL) Random Glucose Calcium Total Bilirubin AST ALT Alkaline Phosphatase Troponin I 10.6000 H* Total Protein Albumin Globulin Albumin/Globulin Ratio Assessment & Plan (1) NSTEMI (non-ST elevated myocardial infarction) Assessment and Plan: asa, plavix loading dose trop noted cardio consult Status: Acute (2) H/O: CVA (cerebrovascular accident) Assessment and Plan: neuro eval bleeding cautions Status: Acute (3) DVT prophylaxis Assessment and Plan: sc dnad ae hose hold further anti coag for now r/t old cva w/ hemorrhagic conversion Status: Acute (4) Diabetes type 2, uncontrolled Assessment and Plan: fsbg, homd meds,riss Status: Acute Decision To Admit - Pt Status Changed To: Hospital Disposition Of: Inpatient - Admit Certification Admit to Inpatient:: After my assessment, the patient will require hospitalization for at least two midnights. This is because of the severity of symptoms shown, intensity of services needed, and/or the medical risk in this patient being treated as an outpatient. - . Bed Request Type: Telemetry Admitting Physician: Charity Bird
--- NOTE | 2017-02-21 09:55 | CARD ---
APPROVED REPORT EKG Measurement Heart [id number] <Conclusion> Atrial fibrillation with premature ventricular or aberrantly conducted complexes Abnormal ECG
[2017-02-21] MEDS ORDERED: Promethazine 6.25 MG/5 ML CUP PO PRN (09:57)
--- NOTE | 2017-02-21 09:58 | RAD ---
PROCEDURE: CHEST RADIOGRAPH, 1 VIEW HISTORY: chest pain COMPARISON: 11/18/2016 FINDINGS: LUNGS: Hazy opacity at the lung bases. Nonspecific elevation of the left hemidiaphragm. PLEURA: No pneumothorax or pleural fluid seen.Biapical pleural parenchymal thickening noted. CARDIOVASCULAR: Normal. OSSEOUS STRUCTURES: The osseous structures demonstrate degenerative changes. VISUALIZED UPPER ABDOMEN: Upper abdomen is suboptimally evaluated. OTHER FINDINGS: None. IMPRESSION: Hazy opacity in the lung bases. Nonspecific elevation of the left hemidiaphragm. Biapical pleural parenchymal thickening noted. If indicated, PA lateral chest radiographs recommended with optimal inspiration effort.
--- NOTE | 2017-02-21 12:10 | CT ---
PROCEDURE: CT HEAD WITHOUT CONTRAST. HISTORY: old cva w/ hemorhagic conversion COMPARISON: CT from 12/09/2016 and MRI from 02/16/2017. TECHNIQUE: Axial computed tomography images were obtained through the head/brain without intravenous contrast. Radiation dose: Total exam DLP = 1504.66 mGy-cm. This CT exam was performed using one or more of the following dose reduction techniques: Automated exposure control, adjustment of the mA and/or kV according to patient size, and/or use of iterative reconstruction technique. FINDINGS: HEMORRHAGE: No evidence of current acute intracranial hemorrhage. BRAIN: Patchy hypodensities (representing gliosis/ encephalomalacia) in the right cerebral hemisphere is likely sequela of the prior large multifocal hemorrhage. (This was seen in the prior CT from 12/09/2016). No current significant mass effect noted. Age related volume loss. Patchy and confluent hypodensities throughout the bilateral cerebral hemispheric white matter are most likely from chronic small vessel ischemic changes. VENTRICLES: Unremarkable. No hydrocephalus. CALVARIUM: Unremarkable. PARANASAL SINUSES: Unremarkable as visualized. No significant inflammatory changes. MASTOID AIR CELLS: Unremarkable as visualized. No inflammatory changes. OTHER FINDINGS: None. IMPRESSION: No evidence of current acute intracranial hemorrhage. Multiple hypodensities, representing gliosis/ encephalomalacia in the right cerebral hemisphere is likely sequela from prior large multifocal hemorrhage. Patchy and confluent hypodensities throughout the bilateral cerebral hemispheric white matter are most likely from chronic small vessel ischemic changes. Followup evaluation recommended. Discussed with ALETHA Puente at approximately 11:45 p.m. on 02/21/2017.
[2017-02-21] MEDS: Insulin Regular 100 units/ml SC SCH ×3 (12:19→22:27)
--- NOTE | 2017-02-21 12:51 | CARD ---
APPROVED REPORT EKG Measurement Heart [id number] <Conclusion> Atrial fibrillation with premature ventricular or aberrantly conducted complexes Septal infarct, age undetermined Cannot rule out Inferior infarct, age undetermined Abnormal ECG
--- NOTE | 2017-02-21 13:22 | CP.PCM.CON ---
History of Present Illness - History of Present Illness History of Present Illness: Mr. Kim is an 86-year-old man with a past medical history of atrial fibrillation, previous ischemic stroke with secondary hemorrhagic conversion, hypertension, diabetes, who I was seeing during his previous hospitalization for his right MCA territory ischemic stroke. The patient is currently admitted for treatment of myocardial infarction with troponins trending up to 10.6 (most recently). The patient has improved significantly with regard to his neurological function, but now has cognitive impairments and difficulty with sleep, according to the family. Neurology was consulted this time to assist with the management and care considering the previous hemorrhagic conversion and the possible need for anticoagulation or stronger antiplatelet agents. Review of Systems - Review of Systems Systems not reviewed;Unavailable: Altered Mental Status All systems: reviewed and no additional remarkable complaints except Past Patient History - Past Medical History & Family History Past Medical History?: Yes - Past Social History Smoking Status: Former Smoker - CARDIAC Hx Atrial Fibrillation: Yes (Previously on Xarelto) Hx Cardia Arrhythmia: Yes Hx Congestive Heart Failure: Yes Hx Hypertension: Yes - PULMONARY Hx Respiratory Disorders: No - NEUROLOGICAL Hx Transient Ischemic Attacks (TIA): Yes - HEENT Hx HEENT Problems: Yes Hx Macular Degeneration: Yes (Right eye) Other/Comment: - 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 - RENAL Hx Chronic Kidney Disease: No - ENDOCRINE/METABOLIC Hx Endocrine Disorders: Yes Hx Diabetes Mellitus Type 2: Yes - HEMATOLOGICAL/ONCOLOGICAL Hx Human Immunodeficiency Virus (HIV): No - INTEGUMENTARY Hx Dermatological Problems: No - MUSCULOSKELETAL/RHEUMATOLOGICAL Hx Musculoskeletal Disorders: No Hx Falls: No - GASTROINTESTINAL Hx Gastrointestinal Disorders: No - GENITOURINARY/GYNECOLOGICAL Hx Genitourinary Disorders: No - PSYCHIATRIC Hx Psychophysiologic Disorder: No Hx Substance Use: No - SURGICAL HISTORY Hx Cholecystectomy: Yes (July 2000) - ANESTHESIA Hx Anesthesia: Yes Hx Anesthesia Reactions: No Hx Malignant Hyperthermia: No Meds Allergies/Adverse Reactions: Allergies Allergy/AdvReac Type Severity Reaction Status Date / Time No Known Allergies Allergy Verified 11/19/16 20:44 - Medications Medications: Current Medications Acetaminophen (Tylenol 325mg Tab) 650 mg PO Q4 PRN PRN Reason: Headache Alprazolam (Xanax) 0.25 mg PO DAILY PRN PRN Reason: Anxiety Stop: 02/28/17 09:01 Last Admin: 02/21/17 05:33 Dose: 0.25 mg Aspirin (Aspirin Chewable) 81 mg PO DAILY [facility] Last Admin: 02/21/17 08:42 Dose: 81 mg Bisoprolol Fumarate (Zebeta) 10 mg PO DAILY [facility] Last Admin: 02/21/17 08:43 Dose: 10 mg Clopidogrel Bisulfate (Plavix) 75 mg PO DAILY [facility] Docusate Sodium (Colace) 100 mg PO BID [facility] Last Admin: 02/21/17 08:42 Dose: 100 mg Insulin Human Regular (Humulin R) 0 units SC ACHS [facility] PRN Reason: Protocol Last Admin: 02/21/17 12:19 Dose: 3 units Nateglinide (Starlix) 120 mg PO BID [facility] Last Admin: 02/21/17 08:42 Dose: 120 mg Nitroglycerin (Nitrostat Sl Tab) 0.4 mg SL Q5M PRN PRN Reason: chest pain Last Admin: 02/21/17 12:17 Dose: 0.4 mg Olanzapine (Zyprexa) 2.5 mg PO DAILY [facility] Last Admin: 02/21/17 08:43 Dose: 2.5 mg Pantoprazole Sodium (Protonix Ec Tab) 40 mg PO DAILY [facility] Last Admin: 02/21/17 08:42 Dose: 40 mg Promethazine HCl (Phenergan Syrup) 6.25 mg PO Q6 PRN PRN Reason: Cough Trazodone HCl (Desyrel) 100 mg PO DAILY [facility] Last Admin: 02/21/17 08:42 Dose: 100 mg Physical Exam - Constitutional Appears: Well, Confused - Head Exam Head Exam: ATRAUMATIC, NORMAL INSPECTION, NORMOCEPHALIC - Eye Exam Eye Exam: EOMI, Normal appearance, PERRL - ENT Exam ENT Exam: Mucous Membranes Moist, Normal Exam - Neck Exam Neck exam: Positive for: Normal Inspection - Respiratory Exam Respiratory Exam: Clear to Auscultation Bilateral, NORMAL BREATHING PATTERN - Cardiovascular Exam Cardiovascular Exam: Tachycardia, +S1, +S2 Additional comments: atrial fibrillation - GI/Abdominal Exam GI & Abdominal Exam: Normal Bowel Sounds, Soft. absent: Tenderness - Rectal Exam Rectal Exam: Deferred - Extremities Exam Extremities exam: Positive for: normal inspection - Neurological Exam Neurological exam: Abnormal Gait, Alert, Altered, CN II-XII Intact Additional comments: Chronic visual difficulty, Conversant, not aphasic or dysarthric, moves all extremities with slight neglect of the left side, strength is relatively symmetrical, sensation is intact throughout, reflexes are brisk on the left side with upgoing plantar response. Gait was not assessed. - Psychiatric Exam Psychiatric exam: Manic - Skin Skin Exam: Dry, Intact, Normal Color, Warm Results - Vital Signs Recent Vital Signs: Last Vital Signs Temp 97.6 F 02/21/17 12:10 Pulse 62 02/21/17 12:10 Resp 20 02/21/17 12:10 BP 114/65 02/21/17 12:10 Pulse Ox 98 02/21/17 12:10 - Labs Result Diagrams: 02/21/17 05:00 02/21/17 05:00 Labs: Laboratory Results - last 24 hr 02/21/17 10:48 POC Glucose (mg/dL) 214 H - Imaging and Cardiology CT scan - head Status: Image reviewed by me, Report reviewed by me (Resolving hemorrhagic conversion of the previous right MCA stroke with multiple areas of hypodensity in both hemispheres consistent with chronic ischemic disease. No acute findings. ) Assessment & Plan (1) H/O: CVA (cerebrovascular accident) Assessment and Plan: The CT head shows good resolution and minimal blood products remaining. I recommend continuing antiplatelet agents for secondary stroke prevention and would be okay with starting heparin if needed, but without a bolus. Brilinta is likely safer than anticoagulation and may be combined with aspirin if needed. The patient's biggest risk factor for stroke at this point is his atrial fibrillation, however, the last time he was started on anticoagulation, he had hemorrhagic transformation. This makes the situation with him [place] more difficult, but at this point, treating the [place] should take precedence. Status: Chronic Priority: Medium (2) NSTEMI (non-ST elevated myocardial infarction) Assessment and Plan: Will defer to cardiology for the treatment and work-up. From a neurological standpoint, the patient has improved from the recent stroke and there is no new hemorrhage on the CT head. Status: Acute Priority: High
--- NOTE | 2017-02-21 14:20 | CP.PCM.CON ---
History of Present Illness - History of Present Illness History of Present Illness: I was asked to see patient by Dr Bird and Yan Puente APN. Patient is a 86 year old male with PMH HTN, CAD, atrial fibrillation, CVA with previous hemorrhagic event, hypercholestyerolemia who presents with chest pain. The symptoms began about 11 pm the nighr prior to presentation. The patient was found to have NSTEMI, with elevation of the second cardiac enzymes. the patietn denies chest pain or dyspnea. Of note cerebral imaging revealed the presents of small hemmorhagic areas. The patient has no current chest pain or dyspnea. He is talkative. Review of Systems - Constitutional Constitutional: absent: As Per HPI, Anorexia, Chills, Daytime Sleepiness, Excessive Sweating, Fatigue, Fever, Frequent Falls, Headache, Increased Appetite , Lethargy, Malaise, Night Sweats, Snoring, Sleep Apnea, Weight Gain, Weight Loss, Weakness, Other - EENT Eyes: absent: As Per HPI, Blind Spots, Blurred Vision, Change in Vision, Decreased Night Vision, Diplopia, Discharge, Dry Eye, Exophthalmos, Floaters, Irritation, Itchy Eyes, Loss of Peripheral Vision, Pain, Photophobia, Requires Corrective Lenses, Sees Flashes, Spots in Vision, Tunnel Vision, Other Visual Disturbances, Loss of Vision, Other Ears: absent: As Per HPI, Decreased Hearing, Ear Discharge, Ear Pain, Tinnitus, Abnormal Hearing, Disequilibrium, Dizziness, Other Nose/Mouth/Throat: absent: As Per HPI, Epistaxis, Nasal Congestion, Nasal Discharge, Nasal Obstruction, Nasal Trauma, Nose Pain, Post Nasal Drip, Sinus Pain, Sinus Pressure, Bleeding Gums, Change in Voice, Dental Pain, Dry Mouth, Dysphagia, Halitosis, Hoarsness, Lip Swelling, Mouth Lesions, Mouth Pain, Odynophagia, Sore Throat, Throat Swelling, Tongue Swelling, Facial Pain, Neck Pain, Neck Mass, Other - Cardiovascular Cardiovascular: Chest Pain, Chest Pain at Rest - Respiratory Respiratory: absent: As Per HPI, Cough, Dyspnea, Hemoptysis, Dyspnea on Exertion , Wheezing, Snoring, Stridor, Pain on Inspiration, Chest Congestion, Excessive Mucous Production, Change in Mucous Color, Pain with Coughing, Other - Gastrointestinal Gastrointestinal: absent: As Per HPI, Abdominal Pain, Belching, Bloating, Change in Bowel Habits, Change in Stool Character, Coffee Ground Emesis, Constipation, Cramping, Diarrhea, Dyspepsia, Dysphagia, Early Satiety, Excessive Flatus, Fecal Incontinence, Heartburn, Hematemesis, Hematochezia, Loose Stools, Melena, Nausea, Odynophagia, Temesmus, Vomiting, Other - Musculoskeletal Musculoskeletal: absent: As Per HPI, Abnormal Gait, Arthralgias, Atrophy, Back Pain, Deformity, Joint Swelling, Limited Range of Motion, Loss of Height, Muscle Cramps, Muscle Weakness, Myalgias, Neck Pain, Numbness, Radiating Pain into Limb, Stiffness, Tingling, Other - Integumentary Integumentary: absent: As Per HPI, Acne, Alopecia, Bleeding Lesions, Change in Hair, Change in Nails, Change in Pigmentation, Changing Lesions, Dry Skin, Erythema, Furuncle, Hirsutism, Lesions, New Lesions, Non-Healing Lesions, Photosensitivity, Pruritus, Rash, Skin Pain, Skin Ulcer, Sores, Striae, Swelling , Unusual Bruising, Wounds, Jaundice, Other - Neurological Neurological: absent: As Per HPI, Abnormal Gait, Abnormal Hearing, Abnormal Movements, Abnormal Speech, Behavioral Changes, Burning Sensations, Confusion, Convulsions, Disequilibrium, Dizziness, Numbness, Focal Weakness, Frequent Falls , Headaches, Lack of Coordination, Loss of Vision, Memory Loss, Paresthesias, Radicular Pain, Restless Legs, Sensory Deficit, Syncope, Tingling, Tremor, Vertigo, Weakness, Other Visual Disturbances, Other - Psychiatric Psychiatric: absent: As Per HPI, Abnormal Sleep Pattern, Anhedonia, Anxiety, Auditory Hallucinations, Behavioral Changes, Change in Appetite, Change in Libido, Confusion, Depression, Difficulty Concentrating, Hallucinations, Homicidal Ideation, Hopelessness, Irritability, Memory Loss, Mood Swings, Panic Attacks, Paranoia, Suicidal Ideation, Visual Hallucinations, Tactile Hallucinations, Other - Endocrine Endocrine: absent: As Per HPI, Change in Body Appearance, Change in Libido, Cold Intolorance, Deepening of Voice, Excessive Sweating, Fatigue, Flushing, Heat Intolorance, Increase in Ring/Shoe/Hat Size, Palpitations, Polydipsia, Polyphagia, Polyuria, Other - Hematologic/Lymphatic Hematologic: absent: As Per HPI, Easy Bleeding, Easy Bruising, Lymphadenopathy, Other Past Patient History - Past Medical History & Family History Past Medical History?: Yes - Past Social History Smoking Status: Former Smoker - CARDIAC Hx Atrial Fibrillation: Yes (Previously on Xarelto) Hx Cardia Arrhythmia: Yes Hx Congestive Heart Failure: Yes Hx Hypertension: Yes - PULMONARY Hx Respiratory Disorders: No - NEUROLOGICAL Hx Transient Ischemic Attacks (TIA): Yes - HEENT Hx HEENT Problems: Yes Hx Macular Degeneration: Yes (Right eye) Other/Comment: - 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 - RENAL Hx Chronic Kidney Disease: No - ENDOCRINE/METABOLIC Hx Endocrine Disorders: Yes Hx Diabetes Mellitus Type 2: Yes - HEMATOLOGICAL/ONCOLOGICAL Hx Human Immunodeficiency Virus (HIV): No - INTEGUMENTARY Hx Dermatological Problems: No - MUSCULOSKELETAL/RHEUMATOLOGICAL Hx Musculoskeletal Disorders: No Hx Falls: No - GASTROINTESTINAL Hx Gastrointestinal Disorders: No - GENITOURINARY/GYNECOLOGICAL Hx Genitourinary Disorders: No - PSYCHIATRIC Hx Psychophysiologic Disorder: No Hx Substance Use: No - SURGICAL HISTORY Hx Cholecystectomy: Yes (July 2000) - ANESTHESIA Hx Anesthesia: Yes Hx Anesthesia Reactions: No Hx Malignant Hyperthermia: No Meds Allergies/Adverse Reactions: Allergies Allergy/AdvReac Type Severity Reaction Status Date / Time No Known Allergies Allergy Verified 11/19/16 20:44 - Medications Medications: Current Medications Acetaminophen (Tylenol 325mg Tab) 650 mg PO Q4 PRN PRN Reason: Headache Last Admin: 02/21/17 14:06 Dose: 650 mg Alprazolam (Xanax) 0.25 mg PO DAILY PRN PRN Reason: Anxiety Stop: 02/28/17 09:01 Last Admin: 02/21/17 05:33 Dose: 0.25 mg Aspirin (Aspirin Chewable) 81 mg PO DAILY [facility] Last Admin: 02/21/17 08:42 Dose: 81 mg Bisoprolol Fumarate (Zebeta) 10 mg PO DAILY [facility] Last Admin: 02/21/17 08:43 Dose: 10 mg Clopidogrel Bisulfate (Plavix) 75 mg PO DAILY [facility] Docusate Sodium (Colace) 100 mg PO BID [facility] Last Admin: 02/21/17 08:42 Dose: 100 mg Insulin Human Regular (Humulin R) 0 units SC [facility] PRN Reason: Protocol Last Admin: 02/21/17 12:19 Dose: 3 units Nateglinide (Starlix) 120 mg PO BID [facility] Last Admin: 02/21/17 08:42 Dose: 120 mg Nitroglycerin (Nitrostat Sl Tab) 0.4 mg SL Q5M PRN PRN Reason: chest pain Last Admin: 02/21/17 12:17 Dose: 0.4 mg Olanzapine (Zyprexa) 2.5 mg PO DAILY [facility] Last Admin: 02/21/17 08:43 Dose: 2.5 mg Pantoprazole Sodium (Protonix Ec Tab) 40 mg PO DAILY [facility] Last Admin: 02/21/17 08:42 Dose: 40 mg Promethazine HCl (Phenergan Syrup) 6.25 mg PO Q6 PRN PRN Reason: Cough Trazodone HCl (Desyrel) 100 mg PO DAILY [facility] Last Admin: 02/21/17 08:42 Dose: 100 mg Physical Exam - Constitutional Appears: Non-toxic - Head Exam Head Exam: NORMAL INSPECTION - Eye Exam Eye Exam: Normal appearance - ENT Exam ENT Exam: Mucous Membranes Moist - Neck Exam Neck exam: Positive for: Full Rom - Respiratory Exam Respiratory Exam: NORMAL BREATHING PATTERN - Cardiovascular Exam Cardiovascular Exam: Irregular Rhythm - GI/Abdominal Exam GI & Abdominal Exam: Normal Bowel Sounds - Rectal Exam Rectal Exam: Deferred - Extremities Exam Extremities exam: Positive for: pedal edema - Back Exam Back exam: NORMAL INSPECTION - Neurological Exam Neurological exam: Alert, Oriented x3 - Psychiatric Exam Psychiatric exam: Normal Affect - Skin Skin Exam: Normal Color Results - Vital Signs Recent Vital Signs: Last Vital Signs Temp 97.6 F 02/21/17 12:10 Pulse 62 02/21/17 12:10 Resp 20 02/21/17 12:10 BP 114/65 02/21/17 12:10 Pulse Ox 98 02/21/17 12:10 - Labs Result Diagrams: 02/21/17 05:00 02/21/17 05:00 Labs: Laboratory Results - last 24 hr 02/21/17 10:48 POC Glucose (mg/dL) 214 H - EKG Data EKG Interpreted by: Myself Assessment & Plan (1) NSTEMI (non-ST elevated myocardial infarction) Assessment and Plan: The patient is currently angina free. I had a long discussion with the patient' s family. The patient is a signficant risk for intracranial bleed if cathterization and possible coronary intervention is perfomed. Will need conservative therapy given the inability to anticaogulate the patient. If possible continue Plavix 75 mg daily. Status: Acute Priority: High (2) H/O: CVA (cerebrovascular accident) Assessment and Plan: holding anticaogyulation Status: Chronic Priority: Medium (3) Chronic atrial fibrillation Assessment and Plan: hodling anticaogulation Status: Acute (4) Diabetes type 2, uncontrolled Status: Acute (5) HTN (hypertension) Status: Acute
[2017-02-22] MEDS: Insulin Regular 100 units/ml SC SCH ×3 (06:33→17:17)
[2017-02-22 07:04] LABS: BASO # 0.1 K/uL (0.0-0.2); BASO % 0.5 % (0.0-2.0); EOS # 0.1 K/uL (0.0-0.7); HEMOGLOBIN 14.9 g/dL (12.0-18.0); LYMPH # 2.4 K/uL (1.0-4.3); LYMPH % 17.9 % (20.0-40.0); MEAN CELL VOLUME 94.7 fl (80.0-94.0); MEAN CORPUSCULAR HEMOGLOBIN 31.9 pg (27.0-31.0); MEAN CORPUSCULAR HGB CONC 33.7 g/dL (33.0-37.0); MEAN PLATELET VOLUME 8.9 fl (7.2-11.7); MONO # 1.1 K/uL (0.0-0.8); MONO % 8.4 % (0.0-10.0); NEUT # 9.7 K/uL (1.8-7.0); NEUT % 72.2 % (50.0-75.0); RBC 4.68 Mil/uL (4.40-5.90); RED CELL DISTRIBUTION WIDTH 14.3 % (11.5-14.5); WHITE BLOOD COUNT 13.4 K/uL (4.8-10.8)
[2017-02-22 07:29] LABS: ALB/GLOB RATIO 1.2 (1.0-2.1); ALBUMIN 4.1 g/dL (3.5-5.0); ALT/SGPT 65 U/L (21-72); AST/SGOT 154 U/L (17-59); BLOOD UREA NITROGEN 16 mg/dl (9-20); CALCIUM 9.8 mg/dL (8.4-10.2); GFR AFRICAN-AMERICAN > 60; GFR NON-AFRICAN AMERICAN > 60
--- NOTE | 2017-02-22 08:07 | CP.PCM.PN ---
Subjective - Date & Time of Evaluation Date of Evaluation: 02/22/17 Time of Evaluation: 08:05 - Subjective Subjective: pt doing well w/o complaints. had poor night of sleep r/t restlessness depite meds. per daughter pt is supposed ot be on restoril. per cardio medical managmeent only case was d/c at length w/ dr puente-radiology, dr plascencia-cardio, dr abreu neuro Objective - Vital Signs/Intake and Output Vital Signs (last 24 hours): Temp Pulse Resp BP Pulse Ox 98.0 F 73 18 124/76 98 02/22/17 05:10 02/22/17 05:10 02/22/17 05:10 02/22/17 05:10 02/22/17 05:10 - Medications Medications: Current Medications Acetaminophen (Tylenol 325mg Tab) 650 mg PO Q4 PRN PRN Reason: Headache Last Admin: 02/21/17 14:06 Dose: 650 mg Alprazolam (Xanax) 0.25 mg PO DAILY PRN PRN Reason: Anxiety Stop: 02/28/17 09:01 Last Admin: 02/21/17 19:18 Dose: 0.25 mg Aspirin (Aspirin Chewable) 81 mg PO DAILY [facility] Last Admin: 02/21/17 08:42 Dose: 81 mg Bisoprolol Fumarate (Zebeta) 10 mg PO DAILY [facility] Last Admin: 02/21/17 08:43 Dose: 10 mg Clopidogrel Bisulfate (Plavix) 75 mg PO DAILY [facility] Docusate Sodium (Colace) 100 mg PO BID [facility] Last Admin: 02/21/17 16:41 Dose: 100 mg Insulin Human Regular (Humulin R) 0 units SC [facility] PRN Reason: Protocol Last Admin: 02/22/17 06:33 Dose: Not Given Nateglinide (Starlix) 120 mg PO BID [facility] Last Admin: 02/21/17 16:41 Dose: 120 mg Nitroglycerin (Nitrostat Sl Tab) 0.4 mg SL Q5M PRN PRN Reason: chest pain Last Admin: 02/21/17 12:17 Dose: 0.4 mg Olanzapine (Zyprexa) 2.5 mg PO DAILY [facility] Last Admin: 02/21/17 08:43 Dose: 2.5 mg Pantoprazole Sodium (Protonix Ec Tab) 40 mg PO DAILY [facility] Last Admin: 02/21/17 08:42 Dose: 40 mg Promethazine HCl (Phenergan Syrup) 6.25 mg PO Q6 PRN PRN Reason: Cough Temazepam (Restoril) 15 mg PO HS PRN PRN Reason: Agitation Trazodone HCl (Desyrel) 100 mg PO DAILY@2100 [facility] - Labs Labs: 02/22/17 05:00 02/22/17 05:00 PT 11.0 Seconds (9.8-13.1) 02/21/17 00:16 INR 1.0 (0.9-1.2) 02/21/17 00:16 APTT 28.6 Seconds (25.6-37.1) 02/21/17 00:16 - Constitutional Appears: Well, Non-toxic, No Acute Distress - Head Exam Head Exam: ATRAUMATIC, NORMAL INSPECTION, NORMOCEPHALIC - Eye Exam Eye Exam: EOMI, Normal appearance, PERRL Pupil Exam: NORMAL ACCOMODATION, PERRL - ENT Exam ENT Exam: Mucous Membranes Moist, Normal Exam - Neck Exam Neck Exam: Full ROM, Normal Inspection. absent: Lymphadenopathy - Respiratory Exam Respiratory Exam: Clear to Ausculation Bilateral, NORMAL BREATHING PATTERN - Cardiovascular Exam Cardiovascular Exam: REGULAR RHYTHM, RRR, +S1, +S2. absent: Murmur - GI/Abdominal Exam GI & Abdominal Exam: Soft, Normal Bowel Sounds. absent: Tenderness - Extremities Exam Extremities Exam: Full ROM, Normal Capillary Refill, Normal Inspection. absent : Joint Swelling, Pedal Edema - Back Exam Back Exam: NORMAL INSPECTION - Neurological Exam Neurological Exam: Alert, Awake, CN II-XII Intact, Normal Gait, Oriented x3 - Psychiatric Exam Psychiatric exam: Normal Affect, Normal Mood - Skin Skin Exam: Dry, Intact, Normal Color, Warm Assessment and Plan (1) NSTEMI (non-ST elevated myocardial infarction) Status: Acute (2) H/O: CVA (cerebrovascular accident) Status: Chronic (3) DVT prophylaxis Status: Acute (4) Diabetes type 2, uncontrolled Status: Acute - Assessment and Plan (Free Text) Assessment: (1) NSTEMI (non-ST elevated myocardial infarction) Assessment and Plan: asa, plavix loading dose trop noted cardio consult medical management only, cautious approach Status: Acute (2) H/O: CVA (cerebrovascular accident) Assessment and Plan: neuro eval ct and mri noted bleeding cautions Status: Acute (3) DVT prophylaxis Assessment and Plan: sc dnad ae hose hold further anti coag for now r/t 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
[2017-02-22] MEDS: Pantoprazole 40 mg EC Tab PO SCH (09:02)
[2017-02-22] MEDS ORDERED: Nitroglycerin 2% Ointment Foilpak UD TOP STA (10:24)
--- NOTE | 2017-02-22 10:34 | CP.PCM.PCO ---
Assessment/Plan - Assessment/Plan Assessment (Free Text): Patient with angina, 05/30 aspirin, plavix, nitro given morphine ordered iv. Discussed with Dr Moore, continue medical therapy at this time. - Problems Patient Problems: Problem List (Active/Current) Problem Status Onset Code Chest pain Acute R07.9 NSTEMI (non-ST elevated myocardial infarction) Acute I21.4 H/O: CVA (cerebrovascular accident) Chronic Z86.73
--- NOTE | 2017-02-22 11:34 | PQF CHF ---
This form is a permanent part of the medical record 02/22/17 Yan Puente APN, In the H&P under the [facility] template there is documentation of CHF (yes). ECHO from October 2016: LV normal size, EF 35-40%, systolic function moderately impaired, mitral regurgitation is trace to mild. Please clarify the type and acuity of heart failure if known. Clarification of your documentation is requested to better reflect the severity of illness and intensity of treatment of your patient. Indicators present [x] Diagnosis a history of CHF [] BNP > 200 [] Imaging Finding of Pulmonary Edema /Pleural Effusions [] Fluid/Volume Overload [] Pitting edema [x] Ejection Fraction < 40% (Indicative of Systolic Heart Failure): ECHO October 2016 [] Ejection Fraction > 40% (Indicative of Diastolic Heart Failure) [] Dyspnea / Orthopenea / Paroxysmal Nocturnal Dyspnea [] Other: Location in the medical record that reflects the above clinical findings: [] Treatment Provided: [] PHYSICIAN'S RESPONSE Based on your medical judgment of the clinical indicators outlined above, are you treating this patient for a known or suspected: [] Acute CHF [] Systolic [] Diastolic [] Combined [x] Chronic CHF [x] Systolic [] Diastolic [] Combined [] Acute on Chronic CHF []Systolic [] Diastolic [] Combined [] CHF due hypertension [] Acute systolic []Chronic systolic [] Acute/ chronic systolic [] Other, please indicate: [] [] If Unable to Determine, please check the box, sign and date. Present On Admission (POA) Indicator: [] Present at the time of admission [] Not present at the time of admission [] Clinically Undetermined In responding to this query, please exercise your independent professional judgment. The fact that a question is asked does not imply that any particular answer is desired or expected. Thank you for your clarification on this documentation. If you have any questions please call:extension [phone] * Thank you, Shira Trinh RN CDMP [facility]
--- NOTE | 2017-02-22 12:41 | PQF GENQUE ---
This form is a permanent part of the medical record 02/22/17 Yan Puente APN, Would you please clarify the type of dementia with or without behavioral disturbance if known. Documentation of a history of Dementia. Medication includes Haldol IM x 1, Zyprexa and Xanax. 1:1 ordered. Clarification of your documentation is requested to better reflect the severity of illness and intensity of treatment of your patient. PHYSICIAN'S RESPONSE TYPE OF DEMENTIA with [] or without [] behavioral disturbance [] Alcohol-induced [] Alzheimers [] Drug-induced [] Frontal [] Lewy body [] Multi-infarct/Vascular [] Parkinsons Disease [] Pre-senile [x] Senile [] Other type not specified above (please specify) [] Clinically unable to determine [] Unknown Based on your medical judgment of the clinical indicators outlined above please clarify the following: [] Practitioner response [] If unable to determine, please check the box, sign and date. Present On Admission (POA) Indicator: [] Present at the time of admission [] Not present at the time of admission [] Clinically Undetermined In responding to this query, please exercise your independent professional judgment. The fact that a question is asked does not imply that any particular answer is desired or expected. Thank you for your clarification on this documentation. If you have any questions please call:ext [phone] * Thank you, Shira Trinh RN [facility]
[2017-02-22] MEDS: Nitroglycerin 2% Ointment Foilpak UD TOP SCH ×2 (16:59→17:22)
--- NOTE | 2017-02-22 18:20 | CP.PCM.PN ---
Subjective - Date & Time of Evaluation Date of Evaluation: 02/22/17 Time of Evaluation: 18:10 - Subjective Subjective: patient has no current chest pain. appears confused. Objective - Vital Signs/Intake and Output Vital Signs (last 24 hours): Temp Pulse Resp BP Pulse Ox 97.8 F 101 H 20 94/69 L 94 L 02/22/17 16:24 02/22/17 16:24 02/22/17 16:24 02/22/17 16:24 02/22/17 16:24 - Medications Medications: Current Medications Acetaminophen (Tylenol 325mg Tab) 650 mg PO Q4 PRN PRN Reason: Headache Last Admin: 02/21/17 14:06 Dose: 650 mg Alprazolam (Xanax) 0.25 mg PO Q8 PRN PRN Reason: Anxiety Stop: 03/01/17 17:01 Last Admin: 02/22/17 17:17 Dose: 0.25 mg Aspirin (Aspirin Chewable) 81 mg PO DAILY [facility] Last Admin: 02/22/17 09:03 Dose: 81 mg Bisoprolol Fumarate (Zebeta) 10 mg PO DAILY [facility] Last Admin: 02/22/17 09:01 Dose: 10 mg Clopidogrel Bisulfate (Plavix) 75 mg PO DAILY [facility] Last Admin: 02/22/17 09:01 Dose: 75 mg Docusate Sodium (Colace) 100 mg PO BID [facility] Last Admin: 02/22/17 17:00 Dose: Not Given Insulin Human Regular (Humulin R) 0 units SC [facility] PRN Reason: Protocol Last Admin: 02/22/17 17:17 Dose: 3 units Morphine Sulfate (Morphine) 2 mg IVP Q4 PRN PRN Reason: Pain, severe (8-10) Last Admin: 02/22/17 13:56 Dose: 2 mg Nateglinide (Starlix) 120 mg PO BID [facility] Last Admin: 02/22/17 17:22 Dose: 120 mg Nitroglycerin (Nitro-Bid 2% Oint) 1 ea TOP Q6 [facility] Last Admin: 02/22/17 17:22 Dose: Not Given Olanzapine (Zyprexa) 2.5 mg PO DAILY [facility] Last Admin: 02/22/17 09:02 Dose: 2.5 mg Pantoprazole Sodium (Protonix Ec Tab) 40 mg PO DAILY [facility] Last Admin: 02/22/17 09:02 Dose: 40 mg Promethazine HCl (Phenergan Syrup) 6.25 mg PO Q6 PRN PRN Reason: Cough Temazepam (Restoril) 15 mg PO HS PRN PRN Reason: Agitation Trazodone HCl (Desyrel) 100 mg PO DAILY@2100 [facility] - Labs Labs: 02/22/17 05:00 02/22/17 05:00 PT 11.0 Seconds (9.8-13.1) 02/21/17 00:16 INR 1.0 (0.9-1.2) 02/21/17 00:16 APTT 28.6 Seconds (25.6-37.1) 02/21/17 00:16 - Constitutional Appears: Non-toxic - Head Exam Head Exam: NORMAL INSPECTION - Eye Exam Eye Exam: Normal appearance - ENT Exam ENT Exam: Mucous Membranes Moist - Neck Exam Neck Exam: Full ROM - Respiratory Exam Respiratory Exam: Decreased Breath Sounds - Cardiovascular Exam Cardiovascular Exam: REGULAR RHYTHM - GI/Abdominal Exam GI & Abdominal Exam: Normal Bowel Sounds - Rectal Exam Rectal Exam: Deferred - Extremities Exam Extremities Exam: Pedal Edema - Back Exam Back Exam: NORMAL INSPECTION - Neurological Exam Neurological Exam: Alert - Psychiatric Exam Psychiatric exam: Agitated - Skin Skin Exam: Normal Color Assessment and Plan (1) NSTEMI (non-ST elevated myocardial infarction) Assessment & Plan: will conitnue with conservative medical therapy. patient is at high ridk of intarcerebral bleeding. on ASA/Plavix currently. Status: Acute (2) H/O: CVA (cerebrovascular accident) Assessment & Plan: risk of bleed Status: Chronic (3) Chronic atrial fibrillation Assessment & Plan: not on anticoagulation Status: Acute (4) Diabetes type 2, uncontrolled Assessment & Plan: blood sugar control Status: Acute (5) HTN (hypertension) Assessment & Plan: blood pressure control Status: Acute
--- NOTE | 2017-02-22 18:55 | CP.CCUPN ---
CCU Subjective - Physician Review Subjective (Free Text): Malachi Blue Note: Malachi Alexander called for sudden unresponsiveness, CPR and ACLS started immediately, high quality chest compressions ensured. Application of monitor leads show A fib at 88/min, in PEA; manual ambubagging administered with apnea. No palpable pulses obtainable. DNI bracelet noted on patient. Family called by Dr. Herrera and discussed current events with daughter, DNI confirmed, and further discussion ended with orders for no further resuscitative efforts which patient would not have wanted. Further attempts at resuscitation aborted, rhythm at this time showed A flutter with variable 4:1 block at HR approx. 42/min. Atropine 0.5mg IVP given just before stopping resuscitation.
[2017-02-22 18:56] VITALS: TEMP 97.3; O2SAT 98
[2017-02-22 18:57] VITALS: BP 0/0
--- NOTE | 2017-02-22 18:58 | PCM.RRTMUL ---
[employer] Nurse Assessment - Situation [employer] Responder Arrival Time:: 18:32 Location:: [address] [place] [address] Room Number:: [id number] [employer] Reason for Call: Not Responding to Urgent Treatment [employer] Called By: RN - IV IV Inserted during [employer] SUPERVISOR?: No IV Fluids Initiated During [employer] SUPERVISOR?: NS at 999cc/hr - Respiratory Oxygen Delivery Method:: Mask Received Nebulizer Treatments:: No Was the Patient Ventilated with Bag/Mask 100% O2?: Yes Secretions Suctioned?: No Was the Patient Intubated?: No Was the Patient Placed on a Ventilator?: No - Medication Medications Administered During [employer]PERVISOR :: Atropine 0.5mg IVP - Diagnostic Test Ordered EKG:: No Chest X-Ray:: No CT Scan:: No CPR started during [employer]OR?: Yes - Vital Signs Pulse Rate:: 57 - [place] Coma Scale Coma Scale Eye Opening:: No response Coma Scale Motor:: None Coma Scale Verbal:: No response Coma Scale Total:: 3 - Time [employer] Ended Time [employer]PER[employer]OR Ended:: 18:50 - Recommendations 5) [employer] Level of Care Recommendations: Remain in current setting 6) Notifications: Family or Designated Caregiver I.Reason for [employer] - A) Acute Change in Patient: (Select all that apply): Staff member or family is worried about patient - A) Initial Vital Signs: Blood Pressure: 0/0 (NOT registered.) Pulse Rate: 40 Respiratory Rate: 30 O2 Sat by Pulse Oximetry: 98 - B) Neurological Status (Select all that apply): absent: Alert, Responsive, Verbal - C) Respiratory Oxygen Delivery Method: Face Mask @% - Constitutional Appears: In Acute Distress - Head Head Exam: ATRAUMATIC - Respiratory Exam Respiratory Exam: Decreased Breath Sounds. absent: NORMAL BREATHING PATTERN - Cardiovascular Exam Cardiovascular Exam: Bradycardia Additional comments: NO palpable pulse. - Neurological Exam Neurological Exam: absent: Alert, Awake, Oriented x3 Plan - A. End of [employer]OR Vital Signs: Blood Pressure: 0/0 (NOT registered) Pulse Rate: 40 (NOT palpable) Respiratory Rate: 0 O2 Sat by Pulse Oximetry: 55 - B. Assessment of Findings&Treatment Plan 86 y/o with a PMHx of DM 2 and CVA under observation for CP and NSTEMI became unresponsive and code blue was alarmed at 18:33. -CPR was started immediately. Successful interval of 120 per min. -Ventilation support started. Face oxygen mask installed and utilized. -Atropine was provided via IV. -Pt unresponsive. -Pulse never palpated.
[2017-02-22 19:00] VITALS: PULSE 40
[2017-02-22 19:04] VITALS: RESP 0
--- NOTE | 2017-02-22 19:23 | CP.PCM.PN ---
Subjective - Date & Time of Evaluation Date of Evaluation: 02/22/17 Time of Evaluation: 19:20 - Subjective Subjective: CALL [employer]PERATIONS MANAGER was called then switched Code Blue as patient went into asystole. CPR was discontinued when Dr Herrera spoke with a daughter who stated that her father wishes were to put him on DNR. Pt was pronounced at 7:15PM Objective - Vital Signs/Intake and Output Vital Signs (last 24 hours): Temp Pulse Resp BP Pulse Ox 97.3 F L 40 L 0 L 0/0 L 98 02/22/17 18:55 02/22/17 19:08 02/22/17 19:08 02/22/17 19:08 02/22/17 18:55 - Medications Medications: Current Medications Acetaminophen (Tylenol 325mg Tab) 650 mg PO Q4 PRN PRN Reason: Headache Last Admin: 02/21/17 14:06 Dose: 650 mg Alprazolam (Xanax) 0.25 mg PO Q8 PRN PRN Reason: Anxiety Stop: 03/01/17 17:01 Last Admin: 02/22/17 17:17 Dose: 0.25 mg Aspirin (Aspirin Chewable) 81 mg PO DAILY [facility] Last Admin: 02/22/17 09:03 Dose: 81 mg Bisoprolol Fumarate (Zebeta) 10 mg PO DAILY [facility] Last Admin: 02/22/17 09:01 Dose: 10 mg Clopidogrel Bisulfate (Plavix) 75 mg PO DAILY [facility] Last Admin: 02/22/17 09:01 Dose: 75 mg Docusate Sodium (Colace) 100 mg PO BID [facility] Last Admin: 02/22/17 17:00 Dose: Not Given Insulin Human Regular (Humulin R) 0 units SC [facility] PRN Reason: Protocol Last Admin: 02/22/17 17:17 Dose: 3 units Morphine Sulfate (Morphine) 2 mg IVP Q4 PRN PRN Reason: Pain, severe (8-10) Last Admin: 02/22/17 13:56 Dose: 2 mg Nateglinide (Starlix) 120 mg PO BID [facility] Last Admin: 02/22/17 17:22 Dose: 120 mg Nitroglycerin (Nitro-Bid 2% Oint) 1 ea TOP Q6 [facility] Last Admin: 02/22/17 17:22 Dose: Not Given Olanzapine (Zyprexa) 2.5 mg PO DAILY [facility] Last Admin: 02/22/17 09:02 Dose: 2.5 mg Pantoprazole Sodium (Protonix Ec Tab) 40 mg PO DAILY [facility] Last Admin: 02/22/17 09:02 Dose: 40 mg Promethazine HCl (Phenergan Syrup) 6.25 mg PO Q6 PRN PRN Reason: Cough Temazepam (Restoril) 15 mg PO HS PRN PRN Reason: Agitation Trazodone HCl (Desyrel) 100 mg PO DAILY@2100 [facility] - Labs Labs: 02/22/17 05:00 02/22/17 05:00 PT 11.0 Seconds (9.8-13.1) 02/21/17 00:16 INR 1.0 (0.9-1.2) 02/21/17 00:16 APTT 28.6 Seconds (25.6-37.1) 02/21/17 00:16
--- NOTE | 2017-02-22 19:31 | CP.PCM.PN ---
Subjective - Date & Time of Evaluation Date of Evaluation: 02/22/17 Time of Evaluation: 19:31 - Subjective Subjective: made aware of pts code blue by dr barndon. d/c case at length with him and informedhim about pts status over the last 24h including agitation/delerium. dr filemon plascencia made aware who suggests conservative comfort care as pt has co morbitidites. multiple attempts to contact family to d/c care and offer support made w/o answer. will follow and cont to reach out for family to offer support Objective - Vital Signs/Intake and Output Vital Signs (last 24 hours): Temp Pulse Resp BP Pulse Ox 97.3 F L 40 L 0 L 0/0 L 98 02/22/17 18:55 02/22/17 19:08 02/22/17 19:08 02/22/17 19:08 02/22/17 18:55 - Medications Medications: Current Medications Acetaminophen (Tylenol 325mg Tab) 650 mg PO Q4 PRN PRN Reason: Headache Last Admin: 02/21/17 14:06 Dose: 650 mg Alprazolam (Xanax) 0.25 mg PO Q8 PRN PRN Reason: Anxiety Stop: 03/01/17 17:01 Last Admin: 02/22/17 17:17 Dose: 0.25 mg Aspirin (Aspirin Chewable) 81 mg PO DAILY [facility] Last Admin: 02/22/17 09:03 Dose: 81 mg Bisoprolol Fumarate (Zebeta) 10 mg PO DAILY [facility] Last Admin: 02/22/17 09:01 Dose: 10 mg Clopidogrel Bisulfate (Plavix) 75 mg PO DAILY [facility] Last Admin: 02/22/17 09:01 Dose: 75 mg Docusate Sodium (Colace) 100 mg PO BID [facility] Last Admin: 02/22/17 17:00 Dose: Not Given Insulin Human Regular (Humulin R) 0 units SC [facility] PRN Reason: Protocol Last Admin: 02/22/17 17:17 Dose: 3 units Morphine Sulfate (Morphine) 2 mg IVP Q4 PRN PRN Reason: Pain, severe (8-10) Last Admin: 02/22/17 13:56 Dose: 2 mg Nateglinide (Starlix) 120 mg PO BID [facility] Last Admin: 02/22/17 17:22 Dose: 120 mg Nitroglycerin (Nitro-Bid 2% Oint) 1 ea TOP Q6 [facility] Last Admin: 02/22/17 17:22 Dose: Not Given Olanzapine (Zyprexa) 2.5 mg PO DAILY [facility] Last Admin: 02/22/17 09:02 Dose: 2.5 mg Pantoprazole Sodium (Protonix Ec Tab) 40 mg PO DAILY [facility] Last Admin: 02/22/17 09:02 Dose: 40 mg Promethazine HCl (Phenergan Syrup) 6.25 mg PO Q6 PRN PRN Reason: Cough Temazepam (Restoril) 15 mg PO HS PRN PRN Reason: Agitation Trazodone HCl (Desyrel) 100 mg PO DAILY@2100 [facility] - Labs Labs: 02/22/17 05:00 02/22/17 05:00 PT 11.0 Seconds (9.8-13.1) 02/21/17 00:16 INR 1.0 (0.9-1.2) 02/21/17 00:16 APTT 28.6 Seconds (25.6-37.1) 02/21/17 00:16 Assessment and Plan (1) NSTEMI (non-ST elevated myocardial infarction) Status: Acute (2) H/O: CVA (cerebrovascular accident) Status: Chronic (3) DVT prophylaxis Status: Acute (4) Diabetes type 2, uncontrolled Status: Acute
--- NOTE | 2017-02-25 15:07 | CP.PCM.DIS ---
Provider - Provider Date of Admission: 02/21/17 10:01 Attending physician: Charity Bird MD Time Spent in preparation of Discharge (in minutes): 15 Diagnosis - Discharge Diagnosis (1) NSTEMI (non-ST elevated myocardial infarction) Status: Acute Priority: High (2) H/O: CVA (cerebrovascular accident) Status: Chronic Priority: Medium (3) DVT prophylaxis Status: Acute (4) Diabetes type 2, uncontrolled Status: Acute Hospital Course - Lab Results Lab Results: Most Recent Lab Values WBC 13.4 K/uL (4.8-10.8) H 02/22/17 05:00 RBC 4.68 Mil/uL (4.40-5.90) 02/22/17 05:00 Hgb 14.9 g/dL (12.0-18.0) 02/22/17 05:00 Hct 44.3 % (35.0-51.0) 02/22/17 05:00 MCV 94.7 fl (80.0-94.0) H 02/22/17 05:00 MCH 31.9 pg (27.0-31.0) H 02/22/17 05:00 MCHC 33.7 g/dL (33.0-37.0) 02/22/17 05:00 RDW 14.3 % (11.5-14.5) 02/22/17 05:00 Plt Count 323 K/uL (130-400) 02/22/17 05:00 MPV 8.9 fl (7.2-11.7) 02/22/17 05:00 Neut % (Auto) 72.2 % (50.0-75.0) 02/22/17 05:00 Lymph % (Auto) 17.9 % (20.0-40.0) L 02/22/17 05:00 [place] % (Auto) 8.4 % (0.0-10.0) 02/22/17 05:00 Eos % (Auto) 1.0 % (0.0-4.0) 02/22/17 05:00 Baso % (Auto) 0.5 % (0.0-2.0) 02/22/17 05:00 Neut # 9.7 K/uL (1.8-7.0) H 02/22/17 05:00 Lymph # 2.4 K/uL (1.0-4.3) 02/22/17 05:00 [place] # 1.1 K/uL (0.0-0.8) H 02/22/17 05:00 Eos # 0.1 K/uL (0.0-0.7) 02/22/17 05:00 Baso # 0.1 K/uL (0.0-0.2) 02/22/17 05:00 PT 11.0 Seconds (9.8-13.1) 02/21/17 00:16 INR 1.0 (0.9-1.2) 02/21/17 00:16 APTT 28.6 Seconds (25.6-37.1) 02/21/17 00:16 Sodium 139 mmol/l (132-148) 02/22/17 05:00 Potassium 4.4 MMOL/L (3.6-5.0) 02/22/17 05:00 Chloride 105 mmol/L (98-107) 02/22/17 05:00 Carbon Dioxide 24 mmol/L (22-30) 02/22/17 05:00 Anion Gap 14 (10-20) 02/22/17 05:00 BUN 16 mg/dl (9-20) 02/22/17 05:00 Creatinine 1.0 mg/dL (0.8-1.5) 02/22/17 05:00 Est GFR ( Amer) > 60 02/22/17 05:00 Est GFR (Non-Af Amer) > 60 02/22/17 05:00 POC Glucose (mg/dL) 231 mg/dL (65-110) H 02/22/17 17:03 Random Glucose 169 mg/dL (75-110) H 02/22/17 05:00 Calcium 9.8 mg/dL (8.4-10.2) 02/22/17 05:00 Total Bilirubin 0.5 mg/dl (0.2-1.3) 02/22/17 05:00 AST 154 U/L (17-59) H D 02/22/17 05:00 ALT 65 U/L (21-72) 02/22/17 05:00 Alkaline Phosphatase 81 U/L (38-126) 02/22/17 05:00 Troponin I 19.1000 ng/mL (0.00-0.120) H* 02/22/17 11:10 Total Protein 7.5 G/DL (6.3-8.2) 02/22/17 05:00 Albumin 4.1 g/dL (3.5-5.0) 02/22/17 05:00 Globulin 3.4 gm/dL (2.2-3.9) 02/22/17 05:00 Albumin/Globulin Ratio 1.2 (1.0-2.1) 02/22/17 05:00 Discharge Exam - Head Exam Head Exam: ATRAUMATIC Discharge Plan - Follow Up Plan Condition: STABLE Disposition: WITH WITHOUT AUTOPSY Additional Instructions: pronounced after having cardiac arrest. made dnr after 1st cardiac arrest by family fainl dx-cardiac arrest, nstemi
== END 2017-02-22 19:15 ==
LOC: H.ER 23:54 → H.ERHOLD 02-21 01:20 → H.TEL 02-21 02:07 → OBSVTOIN 02-21 10:01 → H.TEL 02-22 19:02
PROVIDERS: ADMIT Family Medicine; ATTEND Family Medicine
PROC: 5A12012 Performance of Cardiac Output, Single, Manual (ICD-10-PCS; principal; 2017-02-22)
DX: I21.4 Non-ST elevation (NSTEMI) myocardial infarction (principal); I50.22 Chronic systolic (congestive) heart failure; I11.0 Hypertensive heart disease with heart failure; F05 Delirium due to known physiological condition; F03.91 Unspecified dementia, unspecified severity, with behavioral disturbance; I48.2 Chronic atrial fibrillation; I25.119 Atherosclerotic heart disease of native coronary artery with unspecified angina pectoris; I34.0 Nonrheumatic mitral (valve) insufficiency; E11.65 Type 2 diabetes mellitus with hyperglycemia; I49.3 Ventricular premature depolarization; H35.30 Unspecified macular degeneration; Z79.82 Long term (current) use of aspirin; Z87.891 Personal history of nicotine dependence; Z86.73 Personal history of transient ischemic attack (TIA), and cerebral infarction without residual deficits